=== PATIENT | female | born 1985 | race Caucasian/White ===

== ENCOUNTER → 2016-06-27 | Outpatient (CLI) | payer OTHER, SELFPAY | LOC: MW.CHOBGYN 14:22 | PROVIDERS: ATTEND Nurse Practitioner Women's Health | DX: N92.1 Excessive and frequent menstruation with irregular cycle (principal) | CPT/HCPCS: 36415; 81001; 84443; 84703 ==

== ENCOUNTER → 2016-07-01 | Outpatient (CLI) | payer OTHER, SELFPAY ==
--- NOTE | 2016-07-01 17:16 | US ---
EXAMINATION: Transvaginal pelvic ultrasound HISTORY: Excessive and frequent menstruation COMPARISON: 12/11/2015 TECHNIQUE: Grayscale, spectral and color Doppler images obtained transvaginally. FINDINGS: The uterus appears normal in size and contour, and echogenicity without a focal uterine ma ss. Endometrial stripe thickness measures 8 mm. No significant free pelvic fluid. Both the left and right ovaries appear normal in size, contour, and echogenicity demonstrating juan l color and spectral Doppler flow. Small follicles are noted bilaterally. No adnexal masses. IMPRESSION: Grossly unremarkable transvaginal pelvic ultrasound.
== END ==
LOC: MW.CHOBGYN 13:45
PROVIDERS: ATTEND Nurse Practitioner Women's Health
DX: N92.1 Excessive and frequent menstruation with irregular cycle (principal); R10.2 Pelvic and perineal pain
CPT/HCPCS: 76830; 76830-26; 81001

== ENCOUNTER 2016-08-13 11:41 | Day surgery (SDC) | payer OTHER, SELFPAY ==
[~2016-08-13 11:41] MED LIST: Acetaminophen/HYDROcodone 325-5 MG Tab PO PRN; BACITRACIN IRR SCH; Bupivacaine 0.25%/EPINEPHrine 1:200,000 10 ML SDV INJECT ONE; Bupivacaine 0.25%/EPINEPHrine 1:200,000 10 ML SDV ONE; Lactated Ringers 1,000 ML IV SCH; SODIUM CHLORIDE 0.9% IRR SCH; ceFAZolin 2 GM in Premix Bag 1 BAG IV ONE
[2016-08-13] MEDS ORDERED: EPINEPHrine 1:1000 1 MG/ML SDV ONE (11:49)
[2016-08-13] MEDS ORDERED: ceFAZolin 1 GM Vial ONE ×3 (11:49→14:54)
[2016-08-13] MEDS ORDERED: Gentamicin 40 MG/ML 2 ML Vial ONE (12:00)
--- NOTE | 2016-08-13 12:30 | PCM.PREANE ---
Preanesthetic Assessment - Anesthesia/Transfusion/Family Hx Anesthesia History: Prior Anesthesia Without Reaction Family History of Anesthesia Reaction: No Transfusion History: No Prior Transfusion(s) - Review of Systems General: No Symptoms Pulmonary: No Symptoms Cardiovascular: No Symptoms Gastrointestinal: No symptoms Neurological: No Symptoms Other: Reports: None - Physical Assessment NPO Status Date: 08/12/16 O2 Sat by Pulse Oximetry: 97 Respiratory Rate: 16 Vital Signs: Last Vital Signs Temp 37.3 C 08/13/16 12:11 Pulse 90 08/13/16 12:11 Resp 16 08/13/16 12:11 BP 112/74 08/13/16 12:11 Pulse Ox 97 08/13/16 12:11 Height: 1.68 m Weight: 61.235 kg ASA Class: 2 Mental Status: Alert & Oriented x3 Airway Class: Mallampati = 2 Dentition: Reports: Normal Dentition ROM/Head Extension: Full Lungs: Clear to auscultation, Normal respiratory effort Cardiovascular: Regular Rate, Regular Rhythm - Lab Values: Laboratory Last Values Urine HCG, Qual NEGATIVE (NEGATIVE) 08/13/16 11:41 - Allergies Allergies/Adverse Reactions: Allergies Allergy/AdvReac Type Severity Reaction Status Date / Time No Known Allergies Allergy Verified 12/11/15 17:05 - Anesthesia Plan Pre-Op Medication Ordered: None - Acknowledgements Anesthesia Type Planned: General Anesthesia Pt an Appropriate Candidate for the Planned Anesthesia: Yes Alternatives and Risks of Anesthesia Discussed w Pt/Guardian: Yes Pt/Guardian Understands and Agrees with Anesthesia Plan: Yes PreAnesthesia Questionnaire HEENT History: Reports: Other (See Below) Other HEENT History: wears glasses/contacts Gastrointestinal History: Reports: None Genitourinary History: Reports: None 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: Musculoskeletal History: Reports: Fibromyalgia Neurological History: Reports: Migraines Psychiatric History: Reports: Anxiety Endocrine/Metabolic History: Reports: None Hematologic History: Reports: None Dermatologic History: Reports: None - Infectious Disease History Infectious Disease History: Reports: Chicken Pox - Past Surgical History Head Surgeries/Procedures: Reports: None HEENT Surgical History: Reports: Oral Surgery Other HEENT Surgeries/Procedures: wisdom teeth extraction Female Surgical History: Reports: Breast Biopsy, Section, Tubal Ligation - SUBSTANCE USE Smoking Status *Q: Never Smoker Second Hand Smoke Exposure: No Days Per Week of Alcohol Use: 0 Recreational Drug Use History: No - HOME MEDS Home Medications: Home Meds Ibuprofen 2 tab PO ASDIRECTED PRN 08/11/16 [History] Norethindrone Acetate 10 mg PO BEDTIME 08/11/16 [History] - CURRENT (IN HOUSE) MEDS Current Meds: Current Medications Hydrocodone Bitart/Acetaminophen ([place] 325-5 Mg) 1 tab PO Q4H PRN PRN Reason: Pain Fentanyl (Sublimaze) 50 mcg IVPUSH Q5M PRN PRN Reason: Pain (severe 7-10) Stop: 08/14/16 09:08 Gentamicin Sulfate (Gentamicin) 80 mg .XX ONETIME ONE Stop: 08/13/16 12:01 Bacitracin 50,000 units/ (Sodium Chloride) 1 mls @ 1 mls/hr IRR ONETIME CHAMP Lactated Ringer's (Ringers, Lactated) 1,000 mls @ 125 mls/hr IV ASDIRECTED CHAMP Last Admin: 08/13/16 12:10 Dose: 125 mls/hr Discontinued Medications Bacitracin (Bacitracin) Confirm Administered Dose 50,000 units .ROUTE .STK-MED ONE Stop: 08/13/16 11:51 Bupivacaine HCl/Epinephrine Bitart (Marcaine 0.25%/Epinephrine 1:200,000) 40 ml INJECT ONETIME ONE Stop: 08/13/16 09:01 Bupivacaine HCl/Epinephrine Bitart (Marcaine 0.25%/Epinephrine 1:200,000) Confirm Administered Dose 20 ml .ROUTE .STK-MED ONE Stop: 08/13/16 06:49 Cefazolin Sodium (Ancef) 1 gm .XX ONETIME ONE Stop: 08/13/16 12:01 Cefazolin Sodium (Ancef) Confirm Administered Dose 1 gm .ROUTE .STK-MED ONE Stop: 08/13/16 11:50 Epinephrine HCl (Adrenalin 1:1000) Confirm Administered Dose 1 mg .ROUTE .STK- MED ONE Stop: 08/13/16 11:50 Cefazolin Sodium/Dextrose 2 gm (/ Premix) 50 mls @ 100 mls/hr IV ONETIME ONE Stop: 08/13/16 10:29
[2016-08-13] MEDS ORDERED: Propofol 200 MG/20 ML SDV ONE (12:39)
[2016-08-13] MEDS ORDERED: fentaNYL 250 MCG/5 ML SDV ONE ×2 (12:39→15:10)
[2016-08-13] MEDS ORDERED: Lidocaine 2% 5 ML SDV ONE (12:39)
[2016-08-13] MEDS ORDERED: Ondansetron 4 MG/2 ML SDV ONE (12:39)
[2016-08-13] MEDS ORDERED: Midazolam 1 MG/ML 2 ML SDV ONE (12:39)
[2016-08-13] MEDS ORDERED: Rocuronium 10 MG/ML 10 ML Syringe ONE (12:39)
[2016-08-13] MEDS ORDERED: Neostigmine Methylsulfate 1 MG/ML 5 ML Syringe ONE (12:39)
[2016-08-13] MEDS ORDERED: Sodium Chloride 0.9% 20 ML ONE (14:54)
[2016-08-13] MEDS ORDERED: Metoprolol Tartrate 5 MG/5 ML SDV ONE (15:01)
[2016-08-13] MEDS ORDERED: Phenylephrine/Normal Saline 100 MCG/ML 10 ML Syringe ONE (15:17)
[2016-08-13] MEDS: fentaNYL 100 MCG/2 ML SDV IVPUSH PRN ×2 (16:47→16:55)
--- NOTE | 2016-08-13 17:17 | PCM.POSTAN ---
POST ANESTHESIA ASSESSMENT - MENTAL STATUS Mental Status: alert (stable course without pain; only pressure sensation), oriented - RESPIRATORY Respiratory Status: respiratory rate WNL, airway patent, O2 saturation stable - CARDIOVASCULAR CV Status: pulse rate WNL, blood pressure stable - GASTROINTESTINAL GI Status: no symptoms - POST OP HYDRATION Hydration Status: adequate & stable
--- NOTE | 2016-08-13 17:19 | PCM48HPAN ---
Post Anesthesia Note - EVALUATION WITHIN 48HRS OF ANESTHETIC Vital Signs in Normal Range: Yes Patient Participated in Evaluation: Yes Respiratory Function Stable: Yes Airway Patent: Yes Cardiovascular Function Stable: Yes Hydration Status Stable: Yes Pain Control Satisfactory: Yes Nausea and Vomiting Control Satisfactory: Yes Mental Status Recovered: Yes - COMMENTS/OBSERVATIONS Free Text/Narrative:: Recovery with food intake and no complaint of pain. Ready for transfer accompanied to home.
[2016-08-13 18:05] VITALS: BP 116/67
--- NOTE | 2016-08-14 13:49 | PCM.OPNOTE ---
- General Post-Op/Procedure Note Date of Surgery/Procedure: 08/13/16 Operative Procedure(s): bilateral breast augmentation - silicone submuscular Pre Op Diagnosis: desire for augmentation mammoplasty Post-Op Diagnosis: Same Anesthesia Technique: General ET tube, Local Primary Surgeon: Carline Raymundo Geological Technical Officer: Jessica Issa Complications: None Condition: Good Free Text/Narrative:: Intake & Output 08/13/16 08/14/16 08/14/16 23:59 07:59 15:59 Intake Total 1800 Balance 1800 [id number] dictation
--- NOTE | 2016-08-14 15:20 | OR ---
SURGEON: RUTHANN MELTON MD DATE OF PROCEDURE: 08/13/2016 PREOPERATIVE DIAGNOSIS: Desire for bilateral breast augmentation. POSTOPERATIVE DIAGNOSIS: Desire for bilateral breast augmentation. PROCEDURE: Bilateral augmentation mammoplasty with submuscular silicone implant. ANESTHESIA: General, ET tube, and local. COMMERCIAL LINES ASSISTANT: AWAIS Eden INDICATIONS: Ms. Constantino is a 31-year-old female, here today for bilateral breast augmentation. Risks and benefits of the procedure were discussed with her and she was in agreement to proceed. Risks were including, but not limited to, bleeding, infection, damage to underlying or overlying structures, possible need for future interventions, and possible scarring. PROCEDURE IN DETAIL: After informed consent was obtained and placed on the chart, the patient was brought to the operating theater and laid in the supine position. After adequate general anesthetic, the area was prepped and draped in a normal fashion and time-out was completed to confirm side and site. Once adequately confirmed, attention was then paid to bilateral submuscular breast augmentation pocket development. Inframammary fold incisions were dissected 5 cm in length and a 15 blade was used to cut through the skin after local anesthetic. Dissection was then carried through the subcutaneous plane and to the lateral border of the pectoralis muscle. The dissection was then carried subpectorally and the inferior aspect of the pectoralis muscle was released. Once adequately released, meticulous hemostasis was obtained and 2-0 PDS sutures were used to secure three stitches at the inferior aspect of the inframammary fold and lateral aspect of the breast to prevent over dissection of the implant itself. Once these stitches have been placed, epinephrine laps were placed into the pocket and meticulous hemostasis was ensured. Dissection was undertaken on the other breast in a mirror fashion completed. Attention was then paid to removal of the epinephrine-soaked laps and meticulous hemostasis was again ensured. The area was then copiously irrigated with triple antibiotic solution. Once adequately irrigated, attention was then paid to placement of the [place] SRM 405 mL implants bilaterally. Unfortunately, the initial implant on the left side was punctured during closure and had to be removed and replaced. IMPLANTS: Left : SRM 405 SN [id number] Right: SRM 405 SN [id number] DISCARDED IMPLANT: SRM 405 SN [id number] After replacement, the skin was closed in a normal fashion with deep 3-0 Monocryl stitches and a running 4-0 subcuticular for the skin and Steri-Strips over top. She was then placed in a compression bra. The patient tolerated this well. All counts of needles were correct at the end of the case. FOLLOWUP INSTRUCTIONS: The patient will be discharged home with oral pain medication Flexeril and nausea medication if needed. She will call with any issues prior, otherwise we will recheck tomorrow in clinic sooner if any problems, questions, or concerns. HEGGTHE / LANIE /[id number] MTDD
== END 2016-08-13 18:10 | disposition home or self-care (01) ==
LOC: MW.SDS 11:41
PROVIDERS: ATTEND Plastic Surgery
PROC: 0H0V0KZ Alteration of Bilateral Breast with Nonautologous Tissue Substitute, Open Approach (ICD-10-PCS; principal; 2016-08-13)
DX: Z41.1 Encounter for cosmetic surgery (principal); F41.9 Anxiety disorder, unspecified; G43.709 Chronic migraine without aura, not intractable, without status migrainosus; G50.9 Disorder of trigeminal nerve, unspecified; M79.7 Fibromyalgia; Z98.51 Tubal ligation status; Z98.890 Other specified postprocedural states; Z79.899 Other long term (current) drug therapy
CPT/HCPCS: 19325; 81025; A9270; J0171; J0690; J2250; J2405; J3010; J7120; 00402; C1789; J2704

== ENCOUNTER 2017-04-22 08:49 | Day surgery (SDC) | payer OTHER, SELFPAY ==
[~2017-04-22 08:49] MED LIST changes: -BACITRACIN IRR SCH; -Bupivacaine 0.25%/EPINEPHrine 1:200,000 10 ML SDV ONE; +Bupivacaine 25%/EPINEPHrine/PF 30 ML ONE; +EPINEPHrine 1 MG/ML SDV ONE; +Gentamicin 40 MG/ML 2 ML Vial ONE; -SODIUM CHLORIDE 0.9% IRR SCH; +ceFAZolin 1 GM Vial ONE
--- NOTE | 2017-04-22 10:21 | PCM.PREANE ---
Preanesthetic Assessment - Anesthesia/Transfusion/Family Hx Anesthesia History: Prior Anesthesia Without Reaction Transfusion History: No Prior Transfusion(s) - Physical Assessment O2 Sat by Pulse Oximetry: 99 Respiratory Rate: 16 Vital Signs: Last Vital Signs Temp 36.9 C 04/22/17 09:14 Pulse 85 04/22/17 09:14 Resp 16 04/22/17 09:14 BP 108/67 04/22/17 09:14 Pulse Ox 99 04/22/17 09:14 Height: 1.68 m Weight: 61.689 kg - Lab Values: Laboratory Last Values Urine HCG, Qual NEGATIVE (NEGATIVE) 04/22/17 08:51 - Allergies Allergies/Adverse Reactions: Allergies Allergy/AdvReac Type Severity Reaction Status Date / Time No Known Allergies Allergy Verified 04/20/17 09:01 PreAnesthesia Questionnaire HEENT History: Reports: Other (See Below) Other HEENT History: wears glasses/contacts Cardiovascular History: Reports: None Respiratory History: Reports: None Gastrointestinal History: Reports: None Genitourinary History: Reports: None 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: Musculoskeletal History: Reports: Back Pain, Chronic, Fibromyalgia, Neck Pain, Chronic Neurological History: Reports: Migraines, Other (See Below) (trigeminal neuralgia with numbness first right side) Psychiatric History: Reports: Anxiety Endocrine/Metabolic History: Reports: None Hematologic History: Reports: None Immunologic History: Reports: None Oncologic (Cancer) History: Reports: None Dermatologic History: Reports: None - Infectious Disease History Infectious Disease History: Reports: Chicken Pox - Past Surgical History Head Surgeries/Procedures: Reports: None HEENT Surgical History: Reports: Oral Surgery Other HEENT Surgeries/Procedures: wisdom teeth extraction Female Surgical History: Reports: Breast Biopsy, Breast Implant, Section, Tubal Ligation Oncologic Surgical History: Reports: Biopsy of Breast - SUBSTANCE USE Smoking Status *Q: Never Smoker Second Hand Smoke Exposure: No Days Per Week of Alcohol Use: 0 Recreational Drug Use History: No - HOME MEDS Home Medications: Home Meds Norethindrone Acetate 10 mg PO BEDTIME 08/11/16 [History] Cyclobenzaprine [Flexeril] 1 - 2 tab PO BEDTIME PRN 04/20/17 [History] Ketamine HCl [Ketamine Hydrochloride] 1 applic TOP ASDIRECTED PRN 04/20/17 [ History] Ketamine HCl in 0.9 % NaCl [Ketamine 50 mg/5 ml-0.9% NaCl] 1 spray WILLIAM ASDIRECTED PRN 04/20/17 [History] Mecobal/Levomefolat Ca/B6 Phos [Foltanx Tablet] 1 tab PO BID 04/20/17 [History] Methocarbamol 1 tab PO TID 04/20/17 [History] - CURRENT (IN HOUSE) MEDS Current Meds: Current Medications Hydrocodone Bitart/Acetaminophen ([place] 325-5 Mg) 1 tab PO Q4H PRN PRN Reason: Pain Lactated Ringer's (Ringers, Lactated) 1,000 mls @ 500 mls/hr IV .BOLUS CHAMP Last Admin: 04/22/17 09:14 Dose: 500 mls/hr Discontinued Medications Bacitracin (Bacitracin) Confirm Administered Dose 50,000 units .ROUTE .STK-MED ONE Stop: 04/22/17 07:23 Bupivacaine HCl/Epinephrine Bitart (Marcaine 0.25%/Epinephrine 1:200,000) 10 ml INJECT ONETIME ONE Stop: 04/22/17 08:01 Cefazolin Sodium (Ancef) Confirm Administered Dose 1 gm .ROUTE .STK-MED ONE Stop: 04/22/17 07:22 Epinephrine HCl (Adrenalin) Confirm Administered Dose 1 mg .ROUTE .STK-MED ONE Stop: 04/22/17 07:22 Epinephrine HCl (Adrenalin) Confirm Administered Dose 1 mg .ROUTE .STK-MED ONE Stop: 04/22/17 07:28 Gentamicin Sulfate (Gentamicin) Confirm Administered Dose 80 mg .ROUTE .STK-MED ONE Stop: 04/22/17 07:22 Cefazolin Sodium/Dextrose 2 gm (/ Premix) 50 mls @ 100 mls/hr IV ONETIME ONE Stop: 04/22/17 08:29 Bupivacaine HCl/Epinephrine Bitart (Sensorc Mpf 0.25%-Epi 1:841807) Confirm Administered Dose 60 mls @ as directed .ROUTE .STK-MED ONE Stop: 04/22/17 07:20
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
[2017-04-22] MEDS ORDERED: Propofol 200 MG/20 ML SDV ONE ×2 (11:02→11:35)
[2017-04-22] MEDS ORDERED: ceFAZolin 1 GM Vial ONE (11:11)
[2017-04-22] MEDS ORDERED: Sodium Chloride 0.9% 20 ML ONE (11:11)
[2017-04-22] MEDS ORDERED: fentaNYL 100 MCG/2 ML SDV ONE ×2 (11:18→11:35)
[2017-04-22] MEDS ORDERED: Dexamethasone 4 MG/ML 5 ML MDV ONE (11:31)
[2017-04-22] MEDS ORDERED: Rocuronium 10 MG/ML 10 ML Syringe ONE (11:35)
[2017-04-22] MEDS ORDERED: Neostigmine Methylsulfate 1 MG/ML 5 ML Syringe ONE (11:35)
[2017-04-22] MEDS ORDERED: Ondansetron 4 MG/2 ML SDV ONE (11:35)
[2017-04-22] MEDS ORDERED: Glycopyrrolate 0.2 MG/ML SDV ONE (11:35)
[2017-04-22] MEDS ORDERED: Midazolam 1 MG/ML 2 ML SDV ONE (11:35)
[2017-04-22] MEDS ORDERED: Lidocaine 2% 5 ML SDV ONE (11:35)
[2017-04-22] MEDS ORDERED: HYDROmorphone 2 MG/ML SDV ONE (11:40)
[2017-04-22] MEDS ORDERED: fentaNYL 100 MCG/2 ML SDV IVPUSH PRN (11:53)
[2017-04-22] MEDS ORDERED: Scopolamine 1.5 MG Transdermal Patch ONE (12:42)
--- NOTE | 2017-04-22 13:54 | PCM.POSTAN ---
POST ANESTHESIA ASSESSMENT - MENTAL STATUS Mental Status: Alert, Oriented - RESPIRATORY Respiratory Status: Respiratory Rate WNL, Airway Patent, O2 Saturation Stable - CARDIOVASCULAR CV Status: Pulse Rate WNL, Blood Pressure Stable - GASTROINTESTINAL GI Status: No Symptoms - PAIN Pain Score: 0 - POST OP HYDRATION Hydration Status: Adequate & Stable - OBSERVATIONS Free Text/Narrative:: Pt denies any pain or nausea at this time
--- NOTE | 2017-04-22 13:56 | PCM48HPAN ---
Post Anesthesia Note - EVALUATION WITHIN 48HRS OF ANESTHETIC Vital Signs in Normal Range: Yes Patient Participated in Evaluation: Yes Respiratory Function Stable: Yes Airway Patent: Yes Cardiovascular Function Stable: Yes Hydration Status Stable: Yes Pain Control Satisfactory: Yes Nausea and Vomiting Control Satisfactory: Yes Mental Status Recovered: Yes Resp Rate: 9 - COMMENTS/OBSERVATIONS Free Text/Narrative:: Pt doing well post op with no pain and denying nausea at this time.
--- NOTE | 2017-04-22 14:23 | PCM.OPNOTE ---
- General Post-Op/Procedure Note Date of Surgery/Procedure: 04/22/17 Operative Procedure(s): bilateral breast implant exchange and bilateral flank liposuction Pre Op Diagnosis: cosmetic surgery Post-Op Diagnosis: Same Anesthesia Technique: General ET Tube, Local Primary Surgeon: Carline Raymundo Process Camera Operator: Jessica Issa Complications: None Condition: Good Free Text/Narrative:: Intake & Output 04/21/17 04/22/17 04/22/17 23:59 07:59 15:59 Intake Total 1850 Balance 2943 [id number]
[2017-04-22 14:47] VITALS: BP 122/63
--- NOTE | 2017-04-22 20:28 | OR ---
SURGEON: RUTHANN MELTON MD DATE OF PROCEDURE: 04/22/2017 PREOPERATIVE DIAGNOSES: Desire for bilateral breast implant exchange and bilateral flank liposuction. POSTOPERATIVE DIAGNOSES: Desire for bilateral breast implant exchange and bilateral flank liposuction. PROCEDURES: Bilateral breast implant exchange with minor capsule work and bilateral flank liposuction. UNDERGROUND MINING SECTION FOREMAN: AWAIS Eden. Reason for production administrative assistant was prepping, draping, retraction, and closure assistance. INDICATIONS: Ms. Constantino is seen today in evaluation for bilateral breast implant exchange. She would like to go larger. Risks and benefits of this were discussed with her in detail as documented in the clinic notes and she was in agreement to proceed. In addition, she would like bilateral flank liposuction in addition to this for the love handles that despite her thin build continued to bother her. Risks and benefits were discussed including, but not limited to, bleeding, infection, damage to underlying or overlying structures, possible need for future interventions, possible scarring, and she was in agreement to proceed. PROCEDURE IN DETAIL: After informed consent was obtained and placed on the chart, the patient was brought to the operating theater and laid in a supine position. After adequate general anesthesia was obtained, the area was prepped and draped and a time-out was completed to confirm side and site. Attention was first paid to exchange of breast implants. The previous incisions were used for direct access again and dissection was carried down to the implant itself. The previous implants were removed and once removed, small amount of capsule work were done using a two PDS suture at the lower lateral border of the right and the lateral border on the left. Once this was secured in place, the area was copiously irrigated with triple antibiotic solution. Once adequately irrigated, attention was then paid to placement of the bilateral 650 mL Style 45 Natrelle silicone-filled breast implants, reference number is [id number]; on the left, serial #[id number]; on the right, serial #[id number]. Once these were placed appropriately, the skin was closed using deep 3-0 Monocryl stitches, deep 3-0 for the dermis, and a running 4-0 subcuticular. She tolerated this well, and all counts and needles were correct at the end of this portion of the case. Attention was then paid to the liposuction of the flanks. Small stab incisions were made, hidden in her tattoos. 300 mL of tumescent with 1% lidocaine with epinephrine was injected into the area. Once adequately infiltrated, was allowed to sit. Attention was then paid to liposuction with the power-assisted liposuction machine in a medial cannula. Liposuction was easily undertaken for 150 mL removal on each side. The patient tolerated this well, and then all counts and needles were correct at the end of the case. The stab incisions were dressed with Steri-Strips, Tegaderms, and an ABD for any drainage. The patient was placed in a compression garment. The patient tolerated the procedure well. All counts and needles were correct at the end of the case. She will follow up with us tomorrow in clinic sooner if any problems, questions, or concerns. She was given a prescription for pain control. AMAYA / LANIE /[id number]
== END 2017-04-22 14:30 | disposition home or self-care (01) ==
LOC: MW.SDS 08:49
PROVIDERS: ATTEND Plastic Surgery
DX: Z41.1 Encounter for cosmetic surgery (principal); F41.9 Anxiety disorder, unspecified; G89.4 Chronic pain syndrome; M79.7 Fibromyalgia; N92.1 Excessive and frequent menstruation with irregular cycle; G50.9 Disorder of trigeminal nerve, unspecified; G43.909 Migraine, unspecified, not intractable, without status migrainosus; Z79.899 Other long term (current) drug therapy; Z98.51 Tubal ligation status
CPT/HCPCS: 15877; 19380; 81025; A9270; J0171; J0690; J1100; J1170; J1580; J2250; J2405; J3010; J7120; 00402; C1789; J2704

== ENCOUNTER 2019-05-30 19:36 | Inpatient (IN) | payer BC ==
[2019-05-30] MEDS ORDERED: Morphine 10 MG/ML Syringe IVPUSH ONE (19:54)
[2019-05-30] MEDS ORDERED: Sodium Chloride 0.9% 1,000 ML IV ONE ×2 (19:54→19:55)
[2019-05-30] MEDS ORDERED: Ondansetron 4 MG/2 ML SDV IVPUSH ONE (19:54)
--- NOTE | 2019-05-30 20:00 | EDM.PDOC ---
ED HPI GENERAL MEDICAL PROBLEM - General Chief Complaint: Abdominal Pain Stated Complaint: FEVER, STOMACH PAIN Time Seen by Provider: 05/30/19 19:58 Source of Information: Reports: Patient History Limitations: Reports: No Limitations - History of Present Illness INITIAL COMMENTS - FREE TEXT/NARRATIVE: Patient 31-year-old female with a past medical history of ovarian cysts and tubal ligation presenting with a chief complaint of lower abdominal pain. Patient states the pain started about 24 hours ago. Patient states the pain is periumbilical. Pain does not radiate. Pain is worsened with movements and riding over bumps in the car. Patient reports associated fevers and vomiting. Patient denies any dysuria, hematuria, vaginal bleeding, vaginal discharge. Pmhx: Per HPI Pshx: Breast surgery, tubal ligation Family Hx: noncontributory Smoking history? no Etoh use? none Drug use? none In addition to that documented in the HPI above, the additional ROS was obtained : Constitutional: Per HPI Eyes: Denies vision changes ENMT: Denies sore throat CV: Denies chest pain Resp: Denies SOB GI: Per HPI : Denies painful urination MSK: Denies recent trauma Skin: Denies new rashes Neuro: Denies new numbness or tingling or weakness Endocrine: Denies unexpected weight loss Heme: Denies bleeding disorders I have reviewed the triage vital signs Const: Well nourished, well developed, appears stated age Eyes: PERRL, no conjunctival injection HENT: NCAT, Neck supple without meningismus CV: RRR, Warm, well-perfused extremities RESP: CTAB, Unlabored respiratory effort GI: Tenderness to palpation of the right lower quadrant. No guarding or rebound. Negative Rovsing sign, non-distended, no masses MSK: No gross deformities appreciated Skin: Warm, dry. 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 Sensation and motor function of extremities grossly intact. Psych: Appropriate mood and affect Assessment and plan: Patient is a 4-year-old female presenting with chief complaint of lower abdominal pain. Patient initially had a tachycardia in the 140s. Patient had elevated white blood cell count 18,000. Patient's lactate was within normal limits. Patient's heart rate responded to IV fluid administration. Patient improved with administration of pain medication. CT scan was performed to evaluate for evidence of appendicitis versus diverticular disease versus possible pyelonephritis/complicated urinary tract infection. CT scan demonstrated perforated diverticulitis without evidence of abscess formation. Patient initiated on Zosyn for broad-spectrum antibiotics. General surgery was consulted for evaluation and possible operative management. General surgery evaluated the patient and agreed for an mission to provide antibiotics pain control and repeat evaluation. Dr Prince evaluated and agreed for admission. Lower Abdomen Pain Score (Numeric/FACES): 8 - Related Data Allergies Allergy/AdvReac Type Severity Reaction Status Date / Time No Known Allergies Allergy Verified 05/30/19 19:47 Home Meds: Home Meds . 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: Musculoskeletal History: Reports: Back Pain, Chronic, Fibromyalgia, Neck Pain, Chronic Neurological History: Reports: Migraines, Neuropathy, Peripheral Psychiatric History: Reports: Anxiety Endocrine/Metabolic History: Reports: None Hematologic History: Reports: None Immunologic History: Reports: None Oncologic (Cancer) History: Reports: None Dermatologic History: Reports: None - Infectious Disease History Infectious Disease History: Reports: Chicken Pox - Past Surgical History Head Surgeries/Procedures: Reports: None HEENT Surgical History: Reports: Oral Surgery Other HEENT Surgeries/Procedures: wisdom teeth extraction Female Surgical History: Reports: Breast Biopsy, Breast Implant, Section, Tubal Ligation Oncologic Surgical History: Reports: Biopsy of Breast Social & Family History - Family History Family Medical History: Noncontributory - Tobacco Use Smoking Status *Q: Never Smoker Second Hand Smoke Exposure: No - Caffeine Use Caffeine Use: Reports: None - Recreational Drug Use Recreational Drug Use: No ED ROS GENERAL - Review of Systems Review Of Systems: See Below ED EXAM, GI/ABD - Physical Exam Exam: See Below Course - Vital Signs Last Recorded V/S: Last Vital Signs Temp 36.9 C 05/30/19 23:00 Pulse 106 H 05/30/19 22:34 Resp 17 05/31/19 00:00 BP 101/59 L 05/31/19 00:00 Pulse Ox 96 05/31/19 00:00 - Orders/Labs/Meds Orders: Active Orders 24 hr Category Date Time Status CULTURE BLOOD [BC] Stat Lab 05/30/19 19:45 Received CULTURE BLOOD [BC] Stat Lab 05/30/19 20:04 Received Blood Culture x2 Reflex Set [OM.PC] Stat Oth 05/30/19 19:54 Ordered Medication Orders Hydromorphone HCl (Dilaudid) 0.5 mg IVPUSH Q1H PRN PRN Reason: Pain Last Admin: 05/31/19 00:12 Dose: 0.5 mg Lactated Ringer's (Ringers, Lactated) 1,000 mls @ 150 mls/hr IV ASDIRECTED CHAMP Last Admin: 05/30/19 22:02 Dose: 150 mls/hr Piperacillin Sod/Tazobactam (Sod 3.375 gm/ Sodium Chloride) 50 mls @ 100 mls/ hr IV Q6H CHAMP Ketorolac Tromethamine (Toradol) 15 mg IVPUSH Q6H PRN PRN Reason: Pain Stop: 05/31/19 22:01 Ondansetron HCl (Zofran) 4 mg IVPUSH Q6H PRN PRN Reason: Nausea/Vomiting Promethazine HCl (Phenergan) 25 mg IM Q6H PRN PRN Reason: Nausea Sodium Chloride (Saline Flush) 10 ml FLUSH ASDIRECTED PRN PRN Reason: Keep Vein Open Sodium Chloride (Saline Flush) 2.5 ml FLUSH ASDIRECTED PRN PRN Reason: Keep Vein Open Sodium Chloride (Normal Saline) 10 ml IV ASDIRECTED PRN PRN Reason: IV Use Labs: Laboratory Tests 05/30/19 05/30/19 05/30/19 Range/Units 19:45 19:45 19:45 WBC 18.08 H (4.0-11.0) K/uL RBC 4.67 (4.30-5.90) M/uL Hgb 14.1 (12.0-16.0) g/dL Hct 41.8 (36.0-46.0) % MCV 89.5 (80.0-98.0) fL MCH 30.2 (27.0-32.0) pg MCHC 33.7 (31.0-37.0) g/dL RDW Std Deviation 40.3 (28.0-62.0) fl RDW Coeff of Jamal 12 (11.0-15.0) % Plt Count 296 (150-400) K/uL MPV 8.90 (7.40-12.00) fL Neut % (Auto) 82.1 H (48.0-80.0) % Lymph % (Auto) 8.7 L (16.0-40.0) % [place] % (Auto) 9.0 (0.0-15.0) % Eos % (Auto) 0.1 (0.0-7.0) % Baso % (Auto) 0.1 (0.0-1.5) % Neut # (Auto) 14.9 H (1.4-5.7) K/uL Lymph # (Auto) 1.6 (0.6-2.4) K/uL [place] # (Auto) 1.6 H (0.0-0.8) K/uL Eos # (Auto) 0.0 (0.0-0.7) K/uL Baso # (Auto) 0.0 (0.0-0.1) K/uL Nucleated RBC % 0.0 /100WBC Nucleated RBCs # 0 K/uL Lactate 1.3 (0.20-2.00) mmol/L Sodium 140 (136-145) mmol/L Potassium 3.4 L (3.5-5.1) mmol/L Chloride 104 (98-107) mmol/L Carbon Dioxide 23.0 (21.0-32.0) mmol/L BUN 14 (7.0-18.0) mg/dL Creatinine 0.9 (0.6-1.0) mg/dL Est Cr Clr Drug Dosing 84.01 mL/min Estimated GFR (MDRD) > 60.0 ml/min Glucose 124 H (74-106) mg/dL Calcium 8.7 (8.5-10.1) mg/dL Total Bilirubin 0.7 (0.2-1.0) mg/dL AST 28 (15-37) IU/L ALT 37 (14-63) IU/L Alkaline Phosphatase 98 (46-116) U/L Total Protein 8.0 (6.4-8.2) g/dL Albumin 4.1 (3.4-5.0) g/dL Globulin 3.9 (2.6-4.0) g/dL Albumin/Globulin Ratio 1.1 (0.9-1.6) Lipase 125 (73-393) U/L HCG, Qual (NEG) 05/30/19 Range/Units 19:45 WBC (4.0-11.0) K/uL RBC (4.30-5.90) M/uL Hgb (12.0-16.0) g/dL Hct (36.0-46.0) % MCV (80.0-98.0) fL MCH (27.0-32.0) pg MCHC (31.0-37.0) g/dL RDW Std Deviation (28.0-62.0) fl RDW Coeff of Jamal (11.0-15.0) % Plt Count (150-400) K/uL MPV (7.40-12.00) fL Neut % (Auto) (48.0-80.0) % Lymph % (Auto) (16.0-40.0) % [place] % (Auto) (0.0-15.0) % Eos % (Auto) (0.0-7.0) % Baso % (Auto) (0.0-1.5) % Neut # (Auto) (1.4-5.7) K/uL Lymph # (Auto) (0.6-2.4) K/uL [place] # (Auto) (0.0-0.8) K/uL Eos # (Auto) (0.0-0.7) K/uL Baso # (Auto) (0.0-0.1) K/uL Nucleated RBC % /100WBC Nucleated RBCs # K/uL Lactate (0.20-2.00) mmol/L Sodium (136-145) mmol/L Potassium (3.5-5.1) mmol/L Chloride (98-107) mmol/L Carbon Dioxide (21.0-32.0) mmol/L BUN (7.0-18.0) mg/dL Creatinine (0.6-1.0) mg/dL Est Cr Clr Drug Dosing mL/min Estimated GFR (MDRD) ml/min Glucose (74-106) mg/dL Calcium (8.5-10.1) mg/dL Total Bilirubin (0.2-1.0) mg/dL AST (15-37) IU/L ALT (14-63) IU/L Alkaline Phosphatase (46-116) U/L Total Protein (6.4-8.2) g/dL Albumin (3.4-5.0) g/dL Globulin (2.6-4.0) g/dL Albumin/Globulin Ratio (0.9-1.6) Lipase (73-393) U/L HCG, Qual NEGATIVE (NEG) Meds: Medications Generic Name Dose Route Start Last Admin Trade Name Joey PRN Reason Stop Dose Admin Hydromorphone HCl 0.5 mg 05/30/19 22:27 05/31/19 00:12 Dilaudid IVPUSH 0.5 mg Q1H PRN Administration Pain Lactated Ringer's 1,000 mls @ 150 mls/hr 05/30/19 22:00 05/30/19 22:02 Ringers, Lactated IV 150 mls/hr ASDIRECTED CHAMP Administration Piperacillin Sod/Tazobactam 50 mls @ 100 mls/hr 05/31/19 03:00 Sod 3.375 gm/ Sodium Chloride IV Q6H CHAMP Ketorolac Tromethamine 15 mg 05/30/19 22:23 Toradol IVPUSH 05/31/19 22:01 Q6H PRN Pain Ondansetron HCl 4 mg 05/30/19 22:28 Zofran IVPUSH Q6H PRN Nausea/Vomiting Promethazine HCl 25 mg 05/30/19 22:28 Phenergan IM Q6H PRN Nausea Sodium Chloride 10 ml 05/30/19 22:23 Saline Flush FLUSH ASDIRECTED PRN Keep Vein Open Sodium Chloride 2.5 ml 05/30/19 22:23 Saline Flush FLUSH ASDIRECTED PRN Keep Vein Open Sodium Chloride 10 ml 05/30/19 22:23 Normal Saline IV ASDIRECTED PRN IV Use Discontinued Medications Generic Name Dose Route Start Last Admin Trade Name Fregi PRN Reason Stop Dose Admin Hydromorphone HCl 0.5 mg 05/30/19 22:19 05/30/19 22:28 Dilaudid IVPUSH 05/30/19 22:20 0.5 mg ONETIME ONE Administration Sodium Chloride 1,000 mls @ 1,000 mls/hr 05/30/19 19:54 05/30/19 20:03 Normal Saline IV 05/30/19 20:53 1,000 mls/hr .Bolus ONE Administration Sodium Chloride 1,000 mls @ 1,000 mls/hr 05/30/19 19:55 05/30/19 20:04 Normal Saline IV 05/30/19 20:54 1,000 mls/hr .Bolus ONE Administration Piperacillin Sod/Tazobactam 50 mls @ 100 mls/hr 05/30/19 21:16 05/30/19 21:31 Sod 3.375 gm/ Sodium Chloride IV 05/30/19 21:45 100 mls/hr ONETIME ONE Administration Pantoprazole Sodium 40 mg/ 10 mls @ 300 mls/hr 05/30/19 22:27 05/30/19 23:23 Sodium Chloride IV 05/30/19 22:28 300 mls/hr NOW ONE Administration Iopamidol 100 ml 05/30/19 20:39 05/30/19 20:46 [id number] (76%) IVPUSH 05/30/19 20:40 100 ml ONETIME STA Administration Ketorolac Tromethamine 30 mg 05/30/19 22:19 05/30/19 22:27 Toradol IVPUSH 05/30/19 22:20 30 mg ONETIME ONE Administration Morphine Sulfate 6 mg 05/30/19 19:54 05/30/19 20:03 Morphine IVPUSH 05/30/19 19:55 6 mg ONETIME ONE Administration Ondansetron HCl 4 mg 05/30/19 19:54 05/30/19 20:03 Zofran IVPUSH 05/30/19 19:55 4 mg ONETIME ONE Administration Departure - Departure Time of Disposition: 20:50 Disposition: Admitted As Inpatient 67 Clinical Impression: Diverticulitis of colon with perforation - Discharge Information Sepsis Event Note - Evaluation Sepsis Screening Result: No Definite Risk - Focused Exam Vital Signs: Vital Signs Temp Temp Pulse Resp BP Pulse Ox 05/30/19 21:33 38.1 C 106 H 16 111/68 99 05/30/19 20:59 37.7 C 109 H 18 122/76 100 05/30/19 20:12 38.1 C 113 H 20 112/71 100 05/30/19 19:43 38.5 C H 140 H 20 133/71 98 Date Exam was Performed: 05/31/19 Time Exam was Performed: 00:48 - My Orders Last 24 Hours: My Active Orders 05/30/19 19:45 CULTURE BLOOD [BC] Stat 05/30/19 19:54 Blood Culture x2 Reflex Set [OM.PC] Stat 05/30/19 20:04 CULTURE BLOOD [BC] Stat - Assessment/Plan Last 24 Hours: My Active Orders 05/30/19 19:45 CULTURE BLOOD [BC] Stat 05/30/19 19:54 Blood Culture x2 Reflex Set [OM.PC] Stat 05/30/19 20:04 CULTURE BLOOD [BC] Stat
[2019-05-30 20:27] LABS: BLOOD UREA NITROGEN,BUN 14 mg/dL (7.0-18.0); CHLORIDE,CL 104 mmol/L (98-107); GLUCOSE RANDOM 124 mg/dL (74-106); LIPASE 125 U/L (73-393); POTASSIUM,K 3.4 mmol/L (3.5-5.1); SODIUM,NA 140 mmol/L (136-145)
[2019-05-30] MEDS ORDERED: Iopamidol 755 Mg/ML 100 ML Bottle IVPUSH STA (20:39)
[2019-05-30] MEDS ORDERED: Piperacillin/Tazobactam 3.375 GM in Sodium Chloride 0.9% 50 ML IV ONE (21:16)
--- NOTE | 2019-05-30 21:19 | CT ---
Indication: Right lower quadrant pain Technique: Nonenhanced axial CT imaging through the abdomen and pelvis. Sagittal and coronal reconstructions are provided. Comparison: CT abdomen pelvis with contrast 12/11/2015 Findings: There is diverticulosis of the distal descending colon and sigmoid colon. Focal wall thickening with adjacent inflammatory stranding are seen at the junction of the descending and sigmoid colon, consistent with acute diverticulitis. There are a few nearby foci of extraluminal air. Small amount of free intraperitoneal can also be seen anterior to the liver. Findings are consistent with acute diverticulitis and perforation. There is no organizing abdominal or pelvic fluid collection. Remainder of the colon is noninflamed. The stomach and small bowel are unremarkable. The appendix is not visualized. There is unremarkable noncontrast appearance of the liver, gallbladder, spleen, pancreas, and adrenal glands. A few small nonobstructing stones are seen in the left kidney. The right kidney is unremarkable. There is no abdominal lymphadenopathy. There is normal caliber of the abdominal aorta. The osseous structures are unremarkable. The included lung bases are clear. Impression: Acute diverticulitis at the junction of the descending and sigmoid colon. A few small foci of nearby extraluminal air and free intraperitoneal air over the anterior margin of the liver are consistent with perforation. No evidence of abdominal or pelvic abscess. Findings were called to Dr Bonds at 9:13 pm Please note that all CT scans at this facility use dose modulation, iterative reconstruction, and/or weight-based dosing when appropriate to reduce radiation dose to as low as reasonably achievable. Dictated by Tyree Benoit MD @ May 30 2019 9:01PM Signed by Dr. Tyree Benoit @ May 30 2019 9:17PM
[2019-05-30] MEDS: Lactated Ringers 1,000 ML IV SCH (22:02)
--- NOTE | 2019-05-30 22:08 | PCM.HP.2 ---
H&P History of Present Illness - General Date of Service: 05/30/19 Admit Problem/Dx: Admission Diagnosis/Problem Admission Diagnosis/Problem Diverticulitis Source of Information: Patient History Limitations: Reports: No Limitations - History of Present Illness Initial Comments - Free Text/Narative: Patient is a 33 year old female who presents with 24 hours of increasing abdominal pain. It came on suddenly last evening and continued to get worse throughout the night and today. She developed malaise, fever, chills, diaphoresis, nausea and vomiting. She did have a BM this morning that was normal. She has never had these symptoms before and denies any family history of colon cancer. She came to the ER. She was tachycardic on arrival at 140. Her temperature was 101F. She had 2 sets of blood cultures drawn and was given 2L of IVF. She responded well to the fluid bolus and her HR came down to 100-110. She had a WBC of 18K with a left shift. A CT abdomen/pelvis was performed that showed thickening of the colon at the sigmoid/descending colon junction with a few foci of free air adjacent to this as well as a few foci of air anterior to the liver. With morphine, her pain is under much better control. Lower Abdomen Pain Score (Numeric/FACES): 8 - Related Data Allergies/Adverse Reactions: Allergies Allergy/AdvReac Type Severity Reaction Status Date / Time No Known Allergies Allergy Verified 05/30/19 19:47 Home Medications: Home Meds . 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: Musculoskeletal History: Reports: Back Pain, Chronic, Fibromyalgia, Neck Pain, Chronic Neurological History: Reports: Migraines, Neuropathy, Peripheral Psychiatric History: Reports: Anxiety Endocrine/Metabolic History: Reports: None Hematologic History: Reports: None Immunologic History: Reports: None Oncologic (Cancer) History: Reports: None Dermatologic History: Reports: None - Infectious Disease History Infectious Disease History: Reports: Chicken Pox - Past Surgical History Head Surgeries/Procedures: Reports: None HEENT Surgical History: Reports: Oral Surgery Other HEENT Surgeries/Procedures: wisdom teeth extraction Female Surgical History: Reports: Breast Biopsy, Breast Implant, Section, Tubal Ligation Oncologic Surgical History: Reports: Biopsy of Breast Social & Family History - Family History Family Medical History: Noncontributory - Tobacco Use Smoking Status *Q: Never Smoker Second Hand Smoke Exposure: No - Caffeine Use Caffeine Use: Reports: None - Recreational Drug Use Recreational Drug Use: No H&P Review of Systems - Review of Systems: Review Of Systems: Comprehensive ROS is negative, except as noted in HPI. Exam - Exam Exam: See Below - Vital Signs Vital Signs: Last Vital Signs Temp 38.1 C 05/30/19 21:33 Pulse 106 H 05/30/19 21:33 Resp 16 05/30/19 21:33 BP 111/68 05/30/19 21:33 Pulse Ox 99 05/30/19 21:33 Weight: 61.235 kg - Exam General: Alert, Oriented, Mild Distress HEENT: Conjunctiva Clear, Mucosa Moist & [place], Posterior Pharynx Clear Neck: Supple, Trachea Midline Lungs: Clear to Auscultation, Normal Respiratory Effort Cardiovascular: Regular Rhythm, Tachycardia (mild) GI/Abdominal Exam: Soft, No Distention, No Mass, Guarding (left lateral abdomen ), Tender (left lateral abdomen ). No: Rigid, Rebound - Patient Data Lab Results Last 24 hrs: Laboratory Results - last 24 hr 05/30/19 05/30/19 05/30/19 Range/Units 19:45 19:45 19:45 WBC 18.08 H (4.0-11.0) K/uL RBC 4.67 (4.30-5.90) M/uL Hgb 14.1 (12.0-16.0) g/dL Hct 41.8 (36.0-46.0) % MCV 89.5 (80.0-98.0) fL MCH 30.2 (27.0-32.0) pg MCHC 33.7 (31.0-37.0) g/dL RDW Std Deviation 40.3 (28.0-62.0) fl RDW Coeff of Jamal 12 (11.0-15.0) % Plt Count 296 (150-400) K/uL MPV 8.90 (7.40-12.00) fL Neut % (Auto) 82.1 H (48.0-80.0) % Lymph % (Auto) 8.7 L (16.0-40.0) % [place] % (Auto) 9.0 (0.0-15.0) % Eos % (Auto) 0.1 (0.0-7.0) % Baso % (Auto) 0.1 (0.0-1.5) % Neut # (Auto) 14.9 H (1.4-5.7) K/uL Lymph # (Auto) 1.6 (0.6-2.4) K/uL [place] # (Auto) 1.6 H (0.0-0.8) K/uL Eos # (Auto) 0.0 (0.0-0.7) K/uL Baso # (Auto) 0.0 (0.0-0.1) K/uL Nucleated RBC % 0.0 /100WBC Nucleated RBCs # 0 K/uL Lactate 1.3 (0.20-2.00) mmol/L Sodium 140 (136-145) mmol/L Potassium 3.4 L (3.5-5.1) mmol/L Chloride 104 (98-107) mmol/L Carbon Dioxide 23.0 (21.0-32.0) mmol/L BUN 14 (7.0-18.0) mg/dL Creatinine 0.9 (0.6-1.0) mg/dL Est Cr Clr Drug Dosing 84.01 mL/min Estimated GFR (MDRD) > 60.0 ml/min Glucose 124 H (74-106) mg/dL Calcium 8.7 (8.5-10.1) mg/dL Total Bilirubin 0.7 (0.2-1.0) mg/dL AST 28 (15-37) IU/L ALT 37 (14-63) IU/L Alkaline Phosphatase 98 (46-116) U/L Total Protein 8.0 (6.4-8.2) g/dL Albumin 4.1 (3.4-5.0) g/dL Globulin 3.9 (2.6-4.0) g/dL Albumin/Globulin Ratio 1.1 (0.9-1.6) Lipase 125 (73-393) U/L HCG, Qual (NEG) 05/30/19 Range/Units 19:45 WBC (4.0-11.0) K/uL RBC (4.30-5.90) M/uL Hgb (12.0-16.0) g/dL Hct (36.0-46.0) % MCV (80.0-98.0) fL MCH (27.0-32.0) pg MCHC (31.0-37.0) g/dL RDW Std Deviation (28.0-62.0) fl RDW Coeff of Jamal (11.0-15.0) % Plt Count (150-400) K/uL MPV (7.40-12.00) fL Neut % (Auto) (48.0-80.0) % Lymph % (Auto) (16.0-40.0) % [place] % (Auto) (0.0-15.0) % Eos % (Auto) (0.0-7.0) % Baso % (Auto) (0.0-1.5) % Neut # (Auto) (1.4-5.7) K/uL Lymph # (Auto) (0.6-2.4) K/uL [place] # (Auto) (0.0-0.8) K/uL Eos # (Auto) (0.0-0.7) K/uL Baso # (Auto) (0.0-0.1) K/uL Nucleated RBC % /100WBC Nucleated RBCs # K/uL Lactate (0.20-2.00) mmol/L Sodium (136-145) mmol/L Potassium (3.5-5.1) mmol/L Chloride (98-107) mmol/L Carbon Dioxide (21.0-32.0) mmol/L BUN (7.0-18.0) mg/dL Creatinine (0.6-1.0) mg/dL Est Cr Clr Drug Dosing mL/min Estimated GFR (MDRD) ml/min Glucose (74-106) mg/dL Calcium (8.5-10.1) mg/dL Total Bilirubin (0.2-1.0) mg/dL AST (15-37) IU/L ALT (14-63) IU/L Alkaline Phosphatase (46-116) U/L Total Protein (6.4-8.2) g/dL Albumin (3.4-5.0) g/dL Globulin (2.6-4.0) g/dL Albumin/Globulin Ratio (0.9-1.6) Lipase (73-393) U/L HCG, Qual NEGATIVE (NEG) Result Diagrams: 05/30/19 19:45 05/30/19 19:45 Sepsis Event Note - Evaluation Sepsis Screening Result: No Definite Risk - Focused Exam Vital Signs: Vital Signs Temp Temp Pulse Resp BP Pulse Ox 05/30/19 21:33 38.1 C 106 H 16 111/68 99 05/30/19 20:59 37.7 C 109 H 18 122/76 100 05/30/19 20:12 38.1 C 113 H 20 112/71 100 05/30/19 19:43 38.5 C H 140 H 20 133/71 98 Date Exam was Performed: 05/30/19 Time Exam was Performed: 22:02 - Problem List (1) Dehydration SNOMED Code(s): 61538008 ICD Code: E86.0 - DEHYDRATION Status: Acute Current Visit: Yes (2) Sigmoid diverticulitis SNOMED Code(s): 099266615 ICD Code: K57.32 - DVTRCLI OF LG INT W/O PERFORATION OR ABSCESS W/O BLEEDING Status: Acute Current Visit: Yes Problem List Initiated/Reviewed/Updated: Yes Orders Last 24hrs: Active Orders 24 hr Category Date Time Status Admission Status [Patient Status] [ADT] Stat ADT 05/30/19 21:44 Active CULTURE BLOOD [BC] Stat Lab 05/30/19 19:45 Received CULTURE BLOOD [BC] Stat Lab 05/30/19 20:04 Received Lactated Ringers [Ringers, Lactated] 1,000 ml Med 05/30/19 22:00 Active IV ASDIRECTED Blood Culture x2 Reflex Set [OM.PC] Stat Oth 05/30/19 19:54 Ordered Medication Orders Lactated Ringer's (Ringers, Lactated) 1,000 mls @ 150 mls/hr IV ASDIRECTED CHAMP Assessment/Plan Comment:: The patient has sigmoid diverticulitis with a small perforation. We discussed the pathophysiology of diverticulosis and diverticulitis. I will treat her conservatively with continued IVF resucitation, IV zosyn, and strict NPO status at this time given isolated abdominal tenderness and excellent response to fluids. I will admit her for close observation. I explained to the patient that should she start to have clinical decline and/or worsening of her abdominal pain , we may need to proceed with surgery. Pain: IV Dilaudid 0.5mg q 1hr prn pain. IV toradol 30 mg q 6hr prn pain as well. CV: Tachycardia improving. Continue IVF resuscitation with LR @150ml/hr. Remote telemetry to monitor BP and HR closely. Pulm: Supplemental O2 as needed to keep O2 sats >90%. IS use q 1hr. GI: Strict NPO. Renal: Monitor UOP q 4hr. BUN/Cr stable. Repeat labs and electrolytes in am. ID: IV zosyn 3.375 mg q 6hr. Heme: Stable. Px: IV PPI for now. Will switch to po as soon as tolerated. SCDs. No chemical DVT yet.
[2019-05-30] MEDS ORDERED: Ketorolac 30 MG/ML SDV IVPUSH ONE (22:19)
[2019-05-30] MEDS ORDERED: HYDROmorphone 1 MG/ML Syringe IVPUSH ONE (22:19)
[2019-05-30] MEDS ORDERED: Sodium Chloride 0.9% 10 ML SDV IV PRN (22:23)
[2019-05-30] MEDS ORDERED: Sodium Chloride 0.9% 2.5 ML Syringe FLUSH PRN (22:23)
[2019-05-30] MEDS ORDERED: Sodium Chloride 0.9% 10 ML Syringe FLUSH PRN (22:23)
[2019-05-30] MEDS ORDERED: Pantoprazole 40 MG in Sodium Chloride 0.9% 10 ML IV ONE (22:27)
[2019-05-30] MEDS ORDERED: Promethazine 25 MG/ML SDV IM PRN (22:28)
[2019-05-31] MEDS: HYDROmorphone 1 MG/ML Syringe IVPUSH PRN ×6 (00:12→19:42)
[2019-05-31] MEDS: Piperacillin/Tazobactam 3.375 GM in Sodium Chloride 0.9% 50 ML IV SCH ×4 (03:10→20:10)
[2019-05-31] MEDS: Ketorolac 15 MG/ML SDV IVPUSH PRN ×2 (04:09→21:01)
[2019-05-31] MEDS: Ondansetron 4 MG/2 ML SDV IVPUSH PRN ×2 (05:41→11:26)
[2019-05-31] MEDS: Lactated Ringers 1,000 ML IV SCH ×2 (05:42→14:50)
[2019-05-31 06:02] LABS: BLOOD UREA NITROGEN,BUN 7 mg/dL (7.0-18.0); CARBON DIOXIDE,CO2 26.8 mmol/L (21.0-32.0); CHLORIDE,CL 107 mmol/L (98-107); GLUCOSE RANDOM 101 mg/dL (74-106); POTASSIUM,K 3.6 mmol/L (3.5-5.1); SODIUM,NA 141 mmol/L (136-145)
--- NOTE | 2019-05-31 08:39 | PCM.SURGPN ---
- General Info Date of Service: 05/31/19 Admission Diagnosis/Problem: Diverticulitis of colon with perforation Functional Status: Reports: Pain Controlled, Other (HR improved overnight. BP stable. Making urine. Abdominal pain well controlled. ) - Review of Systems General: Reports: No Symptoms HEENT: Reports: No Symptoms Pulmonary: Reports: No Symptoms Cardiovascular: Reports: No Symptoms Gastrointestinal: Reports: Abdominal Pain (more around the umbilicus (which was where her pain was on presentation per ER physician)) Genitourinary: Reports: No Symptoms Musculoskeletal: Reports: No Symptoms Skin: Reports: No Symptoms - Patient Data Vitals - Most Recent: Last Vital Signs Temp 37.1 C 05/31/19 05:00 Pulse 106 H 05/30/19 22:34 Resp 14 05/31/19 07:00 BP 114/66 05/31/19 07:00 Pulse Ox 98 05/31/19 07:00 Weight - Most Recent: 67.449 kg I&O - Last 24 Hours: Intake & Output 05/30/19 05/31/19 05/31/19 22:59 06:59 14:59 Intake Total 60 Output Total 450 Balance -390 Lab Results Last 24 Hrs: Laboratory Results - last 24 hr 05/30/19 05/30/19 05/30/19 Range/Units 19:45 19:45 19:45 WBC 18.08 H (4.0-11.0) K/uL RBC 4.67 (4.30-5.90) M/uL Hgb 14.1 (12.0-16.0) g/dL Hct 41.8 (36.0-46.0) % MCV 89.5 (80.0-98.0) fL MCH 30.2 (27.0-32.0) pg MCHC 33.7 (31.0-37.0) g/dL RDW Std Deviation 40.3 (28.0-62.0) fl RDW Coeff of Jamal 12 (11.0-15.0) % Plt Count 296 (150-400) K/uL MPV 8.90 (7.40-12.00) fL Neut % (Auto) 82.1 H (48.0-80.0) % Lymph % (Auto) 8.7 L (16.0-40.0) % [place] % (Auto) 9.0 (0.0-15.0) % Eos % (Auto) 0.1 (0.0-7.0) % Baso % (Auto) 0.1 (0.0-1.5) % Neut # (Auto) 14.9 H (1.4-5.7) K/uL Lymph # (Auto) 1.6 (0.6-2.4) K/uL [place] # (Auto) 1.6 H (0.0-0.8) K/uL Eos # (Auto) 0.0 (0.0-0.7) K/uL Baso # (Auto) 0.0 (0.0-0.1) K/uL Nucleated RBC % 0.0 /100WBC Nucleated RBCs # 0 K/uL Lactate 1.3 (0.20-2.00) mmol/L Sodium 140 (136-145) mmol/L Potassium 3.4 L (3.5-5.1) mmol/L Chloride 104 (98-107) mmol/L Carbon Dioxide 23.0 (21.0-32.0) mmol/L BUN 14 (7.0-18.0) mg/dL Creatinine 0.9 (0.6-1.0) mg/dL Est Cr Clr Drug Dosing 84.01 mL/min Estimated GFR (MDRD) > 60.0 ml/min Glucose 124 H (74-106) mg/dL Calcium 8.7 (8.5-10.1) mg/dL Phosphorus (2.6-4.7) mg/dL Magnesium (1.8-2.4) mg/dL Total Bilirubin 0.7 (0.2-1.0) mg/dL AST 28 (15-37) IU/L ALT 37 (14-63) IU/L Alkaline Phosphatase 98 (46-116) U/L Total Protein 8.0 (6.4-8.2) g/dL Albumin 4.1 (3.4-5.0) g/dL Globulin 3.9 (2.6-4.0) g/dL Albumin/Globulin Ratio 1.1 (0.9-1.6) Lipase 125 (73-393) U/L HCG, Qual (NEG) 05/30/19 05/31/19 05/31/19 Range/Units 19:45 05:36 05:36 WBC 9.69 (4.0-11.0) K/uL RBC 3.84 L (4.30-5.90) M/uL Hgb 11.3 L (12.0-16.0) g/dL Hct 34.5 L (36.0-46.0) % MCV 89.8 (80.0-98.0) fL MCH 29.4 (27.0-32.0) pg MCHC 32.8 (31.0-37.0) g/dL RDW Std Deviation 40.1 (28.0-62.0) fl RDW Coeff of Jamal 12 (11.0-15.0) % Plt Count 214 (150-400) K/uL MPV 8.70 (7.40-12.00) fL Neut % (Auto) 69.0 (48.0-80.0) % Lymph % (Auto) 20.1 (16.0-40.0) % [place] % (Auto) 10.5 (0.0-15.0) % Eos % (Auto) 0.3 (0.0-7.0) % Baso % (Auto) 0.1 (0.0-1.5) % Neut # (Auto) 6.7 H (1.4-5.7) K/uL Lymph # (Auto) 2.0 (0.6-2.4) K/uL [place] # (Auto) 1.0 H (0.0-0.8) K/uL Eos # (Auto) 0.0 (0.0-0.7) K/uL Baso # (Auto) 0.0 (0.0-0.1) K/uL Nucleated RBC % 0.0 /100WBC Nucleated RBCs # 0 K/uL Lactate (0.20-2.00) mmol/L Sodium 141 (136-145) mmol/L Potassium 3.6 (3.5-5.1) mmol/L Chloride 107 (98-107) mmol/L Carbon Dioxide 26.8 (21.0-32.0) mmol/L BUN 7 (7.0-18.0) mg/dL Creatinine 0.7 (0.6-1.0) mg/dL Est Cr Clr Drug Dosing 108.01 mL/min Estimated GFR (MDRD) > 60.0 ml/min Glucose 101 (74-106) mg/dL Calcium 7.5 L (8.5-10.1) mg/dL Phosphorus 2.6 (2.6-4.7) mg/dL Magnesium 1.7 L (1.8-2.4) mg/dL Total Bilirubin (0.2-1.0) mg/dL AST (15-37) IU/L ALT (14-63) IU/L Alkaline Phosphatase (46-116) U/L Total Protein (6.4-8.2) g/dL Albumin (3.4-5.0) g/dL Globulin (2.6-4.0) g/dL Albumin/Globulin Ratio (0.9-1.6) Lipase (73-393) U/L HCG, Qual NEGATIVE (NEG) Med Orders - Current: Current Medications Enoxaparin Sodium (Lovenox) 40 mg SUBCUT Q24H [facility] Hydromorphone HCl (Dilaudid) 0.5 mg IVPUSH Q1H PRN PRN Reason: Pain Last Admin: 05/31/19 06:19 Dose: 0.5 mg Lactated Ringer's (Ringers, Lactated) 1,000 mls @ 100 mls/hr IV ASDIRECTED [facility] Last Admin: 05/31/19 05:42 Dose: 150 mls/hr Piperacillin Sod/Tazobactam (Sod 3.375 gm/ Sodium Chloride) 50 mls @ 100 mls/ hr IV Q6H [facility] Last Admin: 05/31/19 03:10 Dose: 100 mls/hr Ketorolac Tromethamine (Toradol) 15 mg IVPUSH Q6H PRN PRN Reason: Pain Stop: 05/31/19 22:01 Last Admin: 05/31/19 04:09 Dose: 15 mg Ondansetron HCl (Zofran) 4 mg IVPUSH Q6H PRN PRN Reason: Nausea/Vomiting Last Admin: 05/31/19 05:41 Dose: 4 mg Promethazine HCl (Phenergan) 25 mg IM Q6H PRN PRN Reason: Nausea Sodium Chloride (Saline Flush) 10 ml FLUSH ASDIRECTED PRN PRN Reason: Keep Vein Open Sodium Chloride (Saline Flush) 2.5 ml FLUSH ASDIRECTED PRN PRN Reason: Keep Vein Open Sodium Chloride (Normal Saline) 10 ml IV ASDIRECTED PRN PRN Reason: IV Use Discontinued Medications Hydromorphone HCl (Dilaudid) 0.5 mg IVPUSH ONETIME ONE Stop: 05/30/19 22:20 Last Admin: 05/30/19 22:28 Dose: 0.5 mg Sodium Chloride (Normal Saline) 1,000 mls @ 1,000 mls/hr IV .Bolus ONE Stop: 05/30/19 20:53 Last Admin: 05/30/19 20:03 Dose: 1,000 mls/hr Sodium Chloride (Normal Saline) 1,000 mls @ 1,000 mls/hr IV .Bolus ONE Stop: 05/30/19 20:54 Last Admin: 05/30/19 20:04 Dose: 1,000 mls/hr Piperacillin Sod/Tazobactam (Sod 3.375 gm/ Sodium Chloride) 50 mls @ 100 mls/ hr IV ONETIME ONE Stop: 05/30/19 21:45 Last Admin: 05/30/19 21:31 Dose: 100 mls/hr Pantoprazole Sodium 40 mg/ (Sodium Chloride) 10 mls @ 300 mls/hr IV NOW ONE Stop: 05/30/19 22:28 Last Admin: 05/30/19 23:23 Dose: 300 mls/hr Iopamidol (Isovue-370 (76%)) 100 ml IVPUSH ONETIME STA Stop: 05/30/19 20:40 Last Admin: 05/30/19 20:46 Dose: 100 ml Ketorolac Tromethamine (Toradol) 30 mg IVPUSH ONETIME ONE Stop: 05/30/19 22:20 Last Admin: 05/30/19 22:27 Dose: 30 mg Morphine Sulfate (Morphine) 6 mg IVPUSH ONETIME ONE Stop: 05/30/19 19:55 Last Admin: 05/30/19 20:03 Dose: 6 mg Ondansetron HCl (Zofran) 4 mg IVPUSH ONETIME ONE Stop: 05/30/19 19:55 Last Admin: 05/30/19 20:03 Dose: 4 mg - Exam Quality Assessment: Supplemental Oxygen General: Alert, Oriented HEENT: Pupils Equal, Pupils Reactive Lungs: Clear to Auscultation, Normal Respiratory Effort Cardiovascular: Regular Rate, Regular Rhythm GI/Abdominal Exam: Soft, No Distention, No Mass, Tender (mild periumbilical tenderness) Extremities: Normal Inspection Skin: Warm, Dry, Intact Neurological: No New Focal Deficit Psy/Mental Status: Alert, Normal Affect, Normal Mood Sepsis Event Note - Evaluation Sepsis Screening Result: No Definite Risk Current Stage of Sepsis: Sepsis - Focused Exam Sepsis Event Note Statement: Focused Sepsis Exam Completed Vital Signs: Vital Signs Temp Temp Temp Pulse Resp BP Pulse Ox 05/31/19 07:00 14 114/66 98 05/31/19 06:00 15 102/64 95 05/31/19 05:00 37.1 C 14 97/62 96 05/31/19 04:00 36.5 C 15 100/58 L 97 05/31/19 03:00 17 116/61 97 05/31/19 02:00 19 104/59 L 96 05/31/19 01:00 14 102/52 L 97 05/31/19 00:00 17 101/59 L 96 05/30/19 23:55 96 05/30/19 23:00 36.9 C 13 107/73 98 05/30/19 22:34 106 H 18 126/77 99 05/30/19 22:03 38.2 C H 106 H 16 118/73 99 05/30/19 21:33 38.1 C 106 H 16 111/68 99 05/30/19 20:59 37.7 C 109 H 18 122/76 100 Date Exam was Performed: 05/31/19 Time Exam was Performed: 10:04 - Problem List & Annotations (1) Dehydration SNOMED Code(s): 30310939 Code(s): E86.0 - DEHYDRATION Status: Acute Current Visit: Yes (2) Sigmoid diverticulitis SNOMED Code(s): 278956461 Code(s): K57.32 - DVTRCLI OF LG INT W/O PERFORATION OR ABSCESS W/O BLEEDING Status: Acute Current Visit: Yes - Problem List Review Problem List Initiated/Reviewed/Updated: Yes - My Orders Last 24 Hours: Active Orders 24 hr Category Date Time Status Patient Status [ADT] Routine ADT 05/30/19 22:24 Active Communication Order [RC] Q12H Care 05/30/19 22:55 Active Intake and Output [RC] Q4HR Care 05/30/19 22:24 Active May Shower [RC] ASDIRECTED Care 05/30/19 22:23 Active Oxygen Therapy [RC] PRN Care 05/30/19 22:24 Active Pulse Oximetry [RC] CONTINUOUS Care 05/30/19 22:25 Active RT Incentive Spirometry [RC] Q1HWA Care 05/30/19 22:23 Active Telemetry Monitoring [Cardiac Monitoring] [RC] Q8H Care 05/30/19 22:00 Active Up ad Kaylie [RC] ASDIRECTED Care 05/30/19 22:23 Active Vital Signs [RC] Q1H Care 05/30/19 22:24 Active NPO [Nothing Per Oral Diet] [DIET] Diet 05/31/19 Breakfast Active BMP [BASIC METABOLIC PANEL,BMP] [CHEM] AM Lab 06/01/19 05:11 Ordered BMP [BASIC METABOLIC PANEL,BMP] [CHEM] AM Lab 06/02/19 05:11 Ordered BMP [BASIC METABOLIC PANEL,BMP] [CHEM] AM Lab 06/03/19 05:11 Ordered CBC WITH AUTO DIFF [HEME] AM Lab 06/01/19 05:11 Ordered CBC WITH AUTO DIFF [HEME] AM Lab 06/02/19 05:11 Ordered CBC WITH AUTO DIFF [HEME] AM Lab 06/03/19 05:11 Ordered CULTURE BLOOD [BC] Stat Lab 05/30/19 19:45 Received CULTURE BLOOD [BC] Stat Lab 05/30/19 20:04 Received MAGNESIUM [CHEM] AM Lab 06/01/19 05:11 Ordered MAGNESIUM [CHEM] AM Lab 06/02/19 05:11 Ordered MAGNESIUM [CHEM] AM Lab 06/03/19 05:11 Ordered PHOSPHORUS [CHEM] AM Lab 06/01/19 05:11 Ordered PHOSPHORUS [CHEM] AM Lab 06/02/19 05:11 Ordered PHOSPHORUS [CHEM] AM Lab 06/03/19 05:11 Ordered Enoxaparin [Lovenox] Med 05/31/19 08:45 Ordered 40 mg SUBCUT Q24H HYDROmorphone [Dilaudid] Med 05/30/19 22:27 Active 0.5 mg IVPUSH Q1H PRN Ketorolac [Toradol] Med 05/30/19 22:23 Active 15 mg IVPUSH Q6H PRN Lactated Ringers [Ringers, Lactated] 1,000 ml Med 05/30/19 22:00 Active IV ASDIRECTED Ondansetron [Zofran] Med 05/30/19 22:28 Active 4 mg IVPUSH Q6H PRN Piperacillin/Tazobactam [Piperacil-Tazobact] 3.375 gm Med 05/31/19 03:00 Active Sodium Chloride 0.9% [Normal Saline] 50 ml IV Q6H Promethazine [Phenergan] Med 05/30/19 22:28 Active 25 mg IM Q6H PRN Sodium Chloride 0.9% [Normal Saline] Med 05/30/19 22:23 Active 10 ml IV ASDIRECTED PRN Sodium Chloride 0.9% [Saline Flush] Med 05/30/19 22:23 Active 10 ml FLUSH ASDIRECTED PRN Sodium Chloride 0.9% [Saline Flush] Med 05/30/19 22:23 Active 2.5 ml FLUSH ASDIRECTED PRN Blood Culture x2 Reflex Set [OM.PC] Stat Oth 05/30/19 19:54 Ordered Peripheral IV Insertion Adult [OM.PC] Urgent Oth 05/30/19 22:23 Ordered Resuscitation Status Routine Resus Stat 05/30/19 22:23 Ordered Medication Orders Enoxaparin Sodium (Lovenox) 40 mg SUBCUT Q24H [facility] Hydromorphone HCl (Dilaudid) 0.5 mg IVPUSH Q1H PRN PRN Reason: Pain Last Admin: 05/31/19 06:19 Dose: 0.5 mg Admin: 05/31/19 04:33 Dose: 0.5 mg Admin: 05/31/19 01:47 Dose: 0.5 mg Admin: 05/31/19 00:12 Dose: 0.5 mg Lactated Ringer's (Ringers, Lactated) 1,000 mls @ 100 mls/hr IV ASDIRECTED [facility] Last Admin: 05/31/19 05:42 Dose: 150 mls/hr Infusion: 05/31/19 04:43 Dose: 150 mls/hr Admin: 05/30/19 22:02 Dose: 150 mls/hr Piperacillin Sod/Tazobactam (Sod 3.375 gm/ Sodium Chloride) 50 mls @ 100 mls/ hr IV Q6H [facility] Last Admin: 05/31/19 03:10 Dose: 100 mls/hr Ketorolac Tromethamine (Toradol) 15 mg IVPUSH Q6H PRN PRN Reason: Pain Stop: 05/31/19 22:01 Last Admin: 05/31/19 04:09 Dose: 15 mg Ondansetron HCl (Zofran) 4 mg IVPUSH Q6H PRN PRN Reason: Nausea/Vomiting Last Admin: 05/31/19 05:41 Dose: 4 mg Promethazine HCl (Phenergan) 25 mg IM Q6H PRN PRN Reason: Nausea Sodium Chloride (Saline Flush) 10 ml FLUSH ASDIRECTED PRN PRN Reason: Keep Vein Open Sodium Chloride (Saline Flush) 2.5 ml FLUSH ASDIRECTED PRN PRN Reason: Keep Vein Open Sodium Chloride (Normal Saline) 10 ml IV ASDIRECTED PRN PRN Reason: IV Use - Plan Plan (Free Text/Narrative):: Patient is a 33 year old female who presented last evening with perforated diverticulitis and sepsis (tachycardic, febrile). Patient appears to be much better this morning. Her abdominal pain is well controlled and her vitals are stable. Pain: prn toradol and IV dilaudid. Continue for now. 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 Pulm: Stable. Encourage IS use. Can be out of bed. GI: NPO for now. If still stable this evening and abdominal pain minimal will advance to clears. Renal: UOP adequate. BUN/Cr stable. Will replace mag today. ID: Continue IV zosyn for now. Consider switching to orals tomorrow. Heme: Hgb decreased however this is likely dilutional. Will continue to monitor. Px: IV PPI, lovenox to start today, SCDs
[2019-05-31] MEDS ORDERED: Magnesium Sulfate/Water 2 GM in Premix Bag 1 BAG IV ONE (10:11)
[2019-05-31] MEDS: Enoxaparin 40 MG/0.4 ML Syringe SUBCUT SCH (10:19)
[2019-05-31] MEDS ORDERED: Ondansetron 4 MG/2 ML SDV IVPUSH ONE (12:34)
--- NOTE | 2019-05-31 12:40 | PCM.SN ---
- Free Text/Narrative Note: I was called to reassess the patient due to increased nausea and an episode of emesis. Along with this her abdominal pain, got worse. She was given IV zofran 4mg with minimal relief. IV dilaudid did help with her pain. Vitals are stable. On physical exam her abdomen has not changed. She is not distended and is only mildly tender in the periumbilical area extending into LUQ. Likely the nausea and episode of emesis is secondary to the inflammation due to the infection. I wrote for a scopolamine patch to be placed and an extra dose of IV zofran 4mg to be given. Will keep her NPO today with IVF ongoing. Will continue to monitor.
[2019-05-31] MEDS: Scopolamine 1.5 MG Transdermal Patch TRDERM SCH (13:13)
[2019-06-01] MEDS: Lactated Ringers 1,000 ML IV SCH ×2 (01:25→12:25)
[2019-06-01] MEDS: Piperacillin/Tazobactam 3.375 GM in Sodium Chloride 0.9% 50 ML IV SCH ×4 (03:17→20:46)
[2019-06-01] MEDS: HYDROmorphone 1 MG/ML Syringe IVPUSH PRN (05:27)
[2019-06-01 05:48] LABS: BLOOD UREA NITROGEN,BUN 9 mg/dL (7.0-18.0); CARBON DIOXIDE,CO2 23.5 mmol/L (21.0-32.0); CHLORIDE,CL 105 mmol/L (98-107); GLUCOSE RANDOM 71 mg/dL (74-106); POTASSIUM,K 3.8 mmol/L (3.5-5.1); SODIUM,NA 139 mmol/L (136-145)
[2019-06-01] MEDS: Acetaminophen/oxyCODONE 325-5 MG Tab PO PRN ×2 (08:20→20:46)
[2019-06-01] MEDS: Enoxaparin 40 MG/0.4 ML Syringe SUBCUT SCH (08:26)
--- NOTE | 2019-06-01 10:50 | PCM.SURGPN ---
- General Info Date of Service: 06/01/19 Functional Status: Reports: Pain Controlled, Urinating, Incentive Spirometry, Other (Patient has not passed gas since yesterday, but no longer feeling nauseated. ) - Review of Systems General: Reports: Weakness HEENT: Reports: No Symptoms Pulmonary: Reports: No Symptoms Cardiovascular: Reports: No Symptoms Gastrointestinal: Reports: No Symptoms Musculoskeletal: Reports: No Symptoms Skin: Reports: No Symptoms - Patient Data Vitals - Most Recent: Last Vital Signs Temp 37.2 C 06/01/19 08:00 Pulse 106 H 05/30/19 22:34 Resp 15 06/01/19 08:00 BP 103/60 06/01/19 08:00 Pulse Ox 97 06/01/19 08:00 Weight - Most Recent: 61.598 kg I&O - Last 24 Hours: Intake & Output 05/31/19 06/01/19 06/01/19 22:59 06:59 14:59 Intake Total 1610 983 50 Output Total 800 550 Balance 810 433 50 Lab Results Last 24 Hrs: Laboratory Results - last 24 hr 06/01/19 06/01/19 Range/Units 05:20 05:20 WBC 7.23 (4.0-11.0) K/uL RBC 3.73 L (4.30-5.90) M/uL Hgb 11.1 L (12.0-16.0) g/dL Hct 33.8 L (36.0-46.0) % MCV 90.6 (80.0-98.0) fL MCH 29.8 (27.0-32.0) pg MCHC 32.8 (31.0-37.0) g/dL RDW Std Deviation 40.3 (28.0-62.0) fl RDW Coeff of Jamal 12 (11.0-15.0) % Plt Count 223 (150-400) K/uL MPV 8.90 (7.40-12.00) fL Neut % (Auto) 67.8 (48.0-80.0) % Lymph % (Auto) 18.9 (16.0-40.0) % [place] % (Auto) 12.2 (0.0-15.0) % Eos % (Auto) 0.8 (0.0-7.0) % Baso % (Auto) 0.3 (0.0-1.5) % Neut # (Auto) 4.9 (1.4-5.7) K/uL Lymph # (Auto) 1.4 (0.6-2.4) K/uL [place] # (Auto) 0.9 H (0.0-0.8) K/uL Eos # (Auto) 0.1 (0.0-0.7) K/uL Baso # (Auto) 0.0 (0.0-0.1) K/uL Nucleated RBC % 0.0 /100WBC Nucleated RBCs # 0 K/uL Sodium 139 (136-145) mmol/L Potassium 3.8 (3.5-5.1) mmol/L Chloride 105 (98-107) mmol/L Carbon Dioxide 23.5 (21.0-32.0) mmol/L BUN 9 (7.0-18.0) mg/dL Creatinine 0.8 (0.6-1.0) mg/dL Est Cr Clr Drug Dosing 94.51 mL/min Estimated GFR (MDRD) > 60.0 ml/min Glucose 71 L (74-106) mg/dL Calcium 7.6 L (8.5-10.1) mg/dL Phosphorus 2.6 (2.6-4.7) mg/dL Magnesium 1.8 (1.8-2.4) mg/dL Len Results Last 24 Hrs: Microbiology 05/30/19 20:04 Aerobic Blood Culture - Preliminary Blood - Venous - Lab Draw NO GROWTH AFTER 1 DAY Anaerobic Blood Culture - Preliminary NO GROWTH AFTER 1 DAY 05/30/19 19:45 Aerobic Blood Culture - Preliminary Blood - Venous NO GROWTH AFTER 1 DAY Anaerobic Blood Culture - Preliminary NO GROWTH AFTER 1 DAY Med Orders - Current: Current Medications Enoxaparin Sodium (Lovenox) 40 mg SUBCUT Q24H [facility] Last Admin: 06/01/19 08:26 Dose: 40 mg Hydromorphone HCl (Dilaudid) 0.5 mg IVPUSH Q1H PRN PRN Reason: Pain Last Admin: 06/01/19 05:27 Dose: 0.5 mg Lactated Ringer's (Ringers, Lactated) 1,000 mls @ 100 mls/hr IV ASDIRECTED [facility] Last Infusion: 06/01/19 01:25 Dose: 100 mls/hr Piperacillin Sod/Tazobactam (Sod 3.375 gm/ Sodium Chloride) 50 mls @ 100 mls/ hr IV Q6H [facility] Last Admin: 06/01/19 08:29 Dose: 100 mls/hr Ondansetron HCl (Zofran) 4 mg IVPUSH Q6H PRN PRN Reason: Nausea/Vomiting Last Admin: 05/31/19 11:26 Dose: 4 mg Oxycodone/Acetaminophen (Percocet 325-5 Mg) 2 tab PO Q4H PRN PRN Reason: Pain (severe 7-10) Last Admin: 06/01/19 08:20 Dose: 2 tab Promethazine HCl (Phenergan) 25 mg IM Q6H PRN PRN Reason: Nausea Scopolamine (Transderm-Scop) 1.5 mg TRDERM Q72H [facility] Last Admin: 05/31/19 13:13 Dose: 1.5 mg Sodium Chloride (Saline Flush) 10 ml FLUSH ASDIRECTED PRN PRN Reason: Keep Vein Open Sodium Chloride (Saline Flush) 2.5 ml FLUSH ASDIRECTED PRN PRN Reason: Keep Vein Open Sodium Chloride (Normal Saline) 10 ml IV ASDIRECTED PRN PRN Reason: IV Use Discontinued Medications Hydromorphone HCl (Dilaudid) 0.5 mg IVPUSH ONETIME ONE Stop: 05/30/19 22:20 Last Admin: 05/30/19 22:28 Dose: 0.5 mg Sodium Chloride (Normal Saline) 1,000 mls @ 1,000 mls/hr IV .Bolus ONE Stop: 05/30/19 20:53 Last Admin: 05/30/19 20:03 Dose: 1,000 mls/hr Sodium Chloride (Normal Saline) 1,000 mls @ 1,000 mls/hr IV .Bolus ONE Stop: 05/30/19 20:54 Last Admin: 05/30/19 20:04 Dose: 1,000 mls/hr Piperacillin Sod/Tazobactam (Sod 3.375 gm/ Sodium Chloride) 50 mls @ 100 mls/ hr IV ONETIME ONE Stop: 05/30/19 21:45 Last Admin: 05/30/19 21:31 Dose: 100 mls/hr Pantoprazole Sodium 40 mg/ (Sodium Chloride) 10 mls @ 300 mls/hr IV NOW ONE Stop: 05/30/19 22:28 Last Admin: 05/30/19 23:23 Dose: 300 mls/hr Magnesium Sulfate 2 gm/ Premix 50 mls @ 50 mls/hr IV ONETIME ONE Stop: 05/31/19 11:10 Last Admin: 05/31/19 10:59 Dose: 50 mls/hr Iopamidol (Isovue-370 (76%)) 100 ml IVPUSH ONETIME STA Stop: 05/30/19 20:40 Last Admin: 05/30/19 20:46 Dose: 100 ml Ketorolac Tromethamine (Toradol) 30 mg IVPUSH ONETIME ONE Stop: 05/30/19 22:20 Last Admin: 05/30/19 22:27 Dose: 30 mg Ketorolac Tromethamine (Toradol) 15 mg IVPUSH Q6H PRN PRN Reason: Pain Stop: 05/31/19 22:01 Last Admin: 05/31/19 21:01 Dose: 15 mg Morphine Sulfate (Morphine) 6 mg IVPUSH ONETIME ONE Stop: 05/30/19 19:55 Last Admin: 05/30/19 20:03 Dose: 6 mg Ondansetron HCl (Zofran) 4 mg IVPUSH ONETIME ONE Stop: 05/30/19 19:55 Last Admin: 05/30/19 20:03 Dose: 4 mg Ondansetron HCl (Zofran) 4 mg IVPUSH ONETIME ONE Stop: 05/31/19 12:35 Last Admin: 05/31/19 13:12 Dose: 4 mg - Exam Wound/Incisions: Healing Well General: Alert, Oriented HEENT: Pupils Equal Neck: Supple Lungs: Clear to Auscultation, Normal Respiratory Effort Cardiovascular: Regular Rate, Regular Rhythm GI/Abdominal Exam: Soft, Non-Tender, No Distention, No Mass. No: Guarding, Rigid, Rebound Extremities: Normal Inspection, Normal Range of Motion Skin: Warm, Dry, Intact Neurological: No New Focal Deficit Psy/Mental Status: Alert, Normal Affect, Normal Mood Sepsis Event Note - Evaluation Sepsis Screening Result: No Definite Risk - Focused Exam Vital Signs: Vital Signs Temp Resp BP Pulse Ox 06/01/19 08:00 37.2 C 15 103/60 97 06/01/19 07:00 15 90/48 L 98 06/01/19 06:00 20 99/62 97 06/01/19 05:00 18 100/54 L 98 06/01/19 04:00 36.6 C 17 97/53 L 98 06/01/19 03:00 19 93/55 L 96 06/01/19 02:00 18 96/52 L 96 06/01/19 01:00 19 91/60 97 06/01/19 00:00 17 95/55 L 97 05/31/19 23:00 36.9 C 20 101/60 97 Date Exam was Performed: 06/01/19 Time Exam was Performed: 10:44 - Problem List & Annotations (1) Dehydration SNOMED Code(s): 23196925 Code(s): E86.0 - DEHYDRATION Status: Acute Current Visit: Yes (2) Sigmoid diverticulitis SNOMED Code(s): 025169644 Code(s): K57.32 - DVTRCLI OF LG INT W/O PERFORATION OR ABSCESS W/O BLEEDING Status: Acute Current Visit: Yes - Problem List Review Problem List Initiated/Reviewed/Updated: Yes - My Orders Last 24 Hours: Active Orders 24 hr Category Date Time Status Transfer Patient (Change bed) [ADT] Routine ADT 06/01/19 07:46 Ordered Clear Liquid Diet [DIET] Diet 06/01/19 Lunch Active BMP [BASIC METABOLIC PANEL,BMP] [CHEM] AM Lab 06/02/19 05:11 Ordered BMP [BASIC METABOLIC PANEL,BMP] [CHEM] AM Lab 06/03/19 05:11 Ordered CBC WITH AUTO DIFF [HEME] AM Lab 06/02/19 05:11 Ordered CBC WITH AUTO DIFF [HEME] AM Lab 06/03/19 05:11 Ordered MAGNESIUM [CHEM] AM Lab 06/02/19 05:11 Ordered MAGNESIUM [CHEM] AM Lab 06/03/19 05:11 Ordered PHOSPHORUS [CHEM] AM Lab 06/02/19 05:11 Ordered PHOSPHORUS [CHEM] AM Lab 06/03/19 05:11 Ordered Acetaminophen/oxyCODONE [Percocet 325-5 MG] Med 06/01/19 07:45 Active 2 tab PO Q4H PRN Scopolamine [Transderm-Scop] Med 05/31/19 12:45 Active 1.5 mg TRDERM Q72H Medication Orders Enoxaparin Sodium (Lovenox) 40 mg SUBCUT Q24H [facility] Last Admin: 06/01/19 08:26 Dose: 40 mg Admin: 05/31/19 10:19 Dose: 40 mg Hydromorphone HCl (Dilaudid) 0.5 mg IVPUSH Q1H PRN PRN Reason: Pain Last Admin: 06/01/19 05:27 Dose: 0.5 mg Admin: 05/31/19 19:42 Dose: 0.5 mg Admin: 05/31/19 10:01 Dose: 0.5 mg Admin: 05/31/19 06:19 Dose: 0.5 mg Admin: 05/31/19 04:33 Dose: 0.5 mg Admin: 05/31/19 01:47 Dose: 0.5 mg Admin: 05/31/19 00:12 Dose: 0.5 mg Lactated Ringer's (Ringers, Lactated) 1,000 mls @ 100 mls/hr IV ASDIRECTED [facility] Last Infusion: 06/01/19 01:25 Dose: 100 mls/hr Admin: 06/01/19 01:25 Dose: 150 mls/hr Infusion: 05/31/19 21:31 Dose: 150 mls/hr Admin: 05/31/19 14:50 Dose: 150 mls/hr Infusion: 05/31/19 12:23 Dose: 150 mls/hr Admin: 05/31/19 05:42 Dose: 150 mls/hr Infusion: 05/31/19 04:43 Dose: 150 mls/hr Admin: 05/30/19 22:02 Dose: 150 mls/hr Piperacillin Sod/Tazobactam (Sod 3.375 gm/ Sodium Chloride) 50 mls @ 100 mls/ hr IV Q6H [facility] Last Admin: 06/01/19 08:29 Dose: 100 mls/hr Infusion: 06/01/19 03:47 Dose: 100 mls/hr Admin: 06/01/19 03:17 Dose: 100 mls/hr Infusion: 05/31/19 20:40 Dose: 100 mls/hr Admin: 05/31/19 20:10 Dose: 100 mls/hr Infusion: 05/31/19 15:21 Dose: 100 mls/hr Admin: 05/31/19 14:51 Dose: 100 mls/hr Infusion: 05/31/19 09:39 Dose: 100 mls/hr Admin: 05/31/19 09:09 Dose: 100 mls/hr Infusion: 05/31/19 03:40 Dose: 100 mls/hr Admin: 05/31/19 03:10 Dose: 100 mls/hr Ondansetron HCl (Zofran) 4 mg IVPUSH Q6H PRN PRN Reason: Nausea/Vomiting Last Admin: 05/31/19 11:26 Dose: 4 mg Admin: 05/31/19 05:41 Dose: 4 mg Oxycodone/Acetaminophen (Percocet 325-5 Mg) 2 tab PO Q4H PRN PRN Reason: Pain (severe 7-10) Last Admin: 06/01/19 08:20 Dose: 2 tab Promethazine HCl (Phenergan) 25 mg IM Q6H PRN PRN Reason: Nausea Scopolamine (Transderm-Scop) 1.5 mg TRDERM Q72H [facility] Last Admin: 05/31/19 13:13 Dose: 1.5 mg Sodium Chloride (Saline Flush) 10 ml FLUSH ASDIRECTED PRN PRN Reason: Keep Vein Open Sodium Chloride (Saline Flush) 2.5 ml FLUSH ASDIRECTED PRN PRN Reason: Keep Vein Open Sodium Chloride (Normal Saline) 10 ml IV ASDIRECTED PRN PRN Reason: IV Use - Plan Plan (Free Text/Narrative):: Patient had no acute events overnight. Her WBC is within normal limits. Hemoglobin is stable. Her abdominal pain is still present but well controlled with medications. Vitals were stable. Pain: Po percocet 325-5mg 2 tab q 4hr prn pain. IV toradol 15 mg q 6hr prn pain. IV dilaudid 0.5mg q 1hr for severe pain only. CV: Vitals stable overall. D/C cardiac monitoring. Pulm: D/C pulse oximeter. Encourage OOB activity and IS use. GI: Will start clear liquid diet today. Will stick with that until passing gas. Scopolamine patch in place. Continue for now. Prn zofran and IM phenergan. Added multivitamin daily. Renal: Continue IV fluids until having adequate po intake. UOP adequate. BUN/Cr WNL. ID: Continue IV zosyn for today. If tolerating po diet without issues will switch to oral antibiotics tomorrow. Px: IM Lovenox, SCDs, will switch to oral PPI. Transferred to floor today.
[2019-06-01] MEDS: Omeprazole 20 MG Cap.CR PO SCH (11:19)
[2019-06-01] MEDS: Multivitamin Tab PO SCH (20:45)
[2019-06-02] MEDS: Lactated Ringers 1,000 ML IV SCH (00:28)
[2019-06-02] MEDS: Ondansetron 4 MG/2 ML SDV IVPUSH PRN (01:39)
[2019-06-02] MEDS: Piperacillin/Tazobactam 3.375 GM in Sodium Chloride 0.9% 50 ML IV SCH (03:32)
[2019-06-02] MEDS: Omeprazole 20 MG Cap.CR PO SCH (06:44)
[2019-06-02] MEDS: Acetaminophen/oxyCODONE 325-5 MG Tab PO PRN ×2 (06:45→22:31)
[2019-06-02] MEDS ORDERED: Omeprazole 20 MG Cap.CR PO SCH (07:30)
[2019-06-02] MEDS ORDERED: Ciprofloxacin in D5W 400 MG in Premix Bag 1 BAG IV SCH ×2 (07:30)
[2019-06-02] MEDS: Enoxaparin 40 MG/0.4 ML Syringe SUBCUT SCH (07:45)
[2019-06-02] MEDS: metroNIDAZOLE 250 MG Tab PO SCH ×3 (07:53→18:49)
[2019-06-02] MEDS: Polyethylene Glycol 3350 Powder 17 GM Packet PO SCH (08:41)
[2019-06-02] MEDS: Ciprofloxacin 500 MG Tab PO SCH ×2 (08:41→20:10)
--- NOTE | 2019-06-02 09:46 | PCM.SURGPN ---
- General Info Date of Service: 06/02/19 Functional Status: Reports: Pain Controlled, Tolerating Diet, Ambulating, Urinating, New Symptoms (One episode of emesis last night however patient admits this was after eating too much and after pain medication. No nausea this am and no vomiting since. ), Other (Passing flatus this am. ) - Review of Systems General: Reports: No Symptoms HEENT: Reports: No Symptoms Pulmonary: Reports: No Symptoms Cardiovascular: Reports: No Symptoms Gastrointestinal: Reports: Flatus. Denies: Diarrhea, Nausea, Vomiting Musculoskeletal: Reports: No Symptoms Skin: Reports: No Symptoms - Patient Data Vitals - Most Recent: Last Vital Signs Temp 37.0 C 06/02/19 07:03 Pulse 60 06/02/19 07:03 Resp 16 06/02/19 07:03 BP 93/62 06/02/19 07:03 Pulse Ox 98 06/02/19 07:03 Weight - Most Recent: 61.598 kg I&O - Last 24 Hours: Intake & Output 06/01/19 06/02/19 06/02/19 22:59 06:59 14:59 Intake Total 699 1570 Output Total 2030 Balance 699 -460 Lab Results Last 24 Hrs: Laboratory Results - last 24 hr 06/02/19 06/02/19 06/02/19 Range/Units 00:02 00:49 05:05 WBC 4.48 (4.0-11.0) K/uL RBC 3.57 L (4.30-5.90) M/uL Hgb 10.7 L (12.0-16.0) g/dL Hct 32.0 L (36.0-46.0) % MCV 89.6 (80.0-98.0) fL MCH 30.0 (27.0-32.0) pg MCHC 33.4 (31.0-37.0) g/dL RDW Std Deviation 39.0 (28.0-62.0) fl RDW Coeff of Jamal 12 (11.0-15.0) % Plt Count 219 (150-400) K/uL MPV 9.00 (7.40-12.00) fL Neut % (Auto) 54.1 (48.0-80.0) % Lymph % (Auto) 29.2 (16.0-40.0) % [place] % (Auto) 13.8 (0.0-15.0) % Eos % (Auto) 2.7 (0.0-7.0) % Baso % (Auto) 0.2 (0.0-1.5) % Neut # (Auto) 2.4 (1.4-5.7) K/uL Lymph # (Auto) 1.3 (0.6-2.4) K/uL [place] # (Auto) 0.6 (0.0-0.8) K/uL Eos # (Auto) 0.1 (0.0-0.7) K/uL Baso # (Auto) 0.0 (0.0-0.1) K/uL Nucleated RBC % 0.0 /100WBC Nucleated RBCs # 0 K/uL POC Glucose 64 124 H (60-110) mg/dL Len Results Last 24 Hrs: Microbiology 05/30/19 20:04 Aerobic Blood Culture - Preliminary Blood - Venous - Lab Draw NO GROWTH AFTER 2 DAYS Anaerobic Blood Culture - Preliminary NO GROWTH AFTER 2 DAYS 05/30/19 19:45 Aerobic Blood Culture - Preliminary Blood - Venous NO GROWTH AFTER 2 DAYS Anaerobic Blood Culture - Preliminary NO GROWTH AFTER 2 DAYS Med Orders - Current: Current Medications Ciprofloxacin (Ciprofloxacin Hcl) 500 mg PO BID [facility] Last Admin: 06/02/19 08:41 Dose: 500 mg Enoxaparin Sodium (Lovenox) 40 mg SUBCUT Q24H [facility] Last Admin: 06/02/19 07:45 Dose: 40 mg Hydromorphone HCl (Dilaudid) 0.5 mg IVPUSH Q1H PRN PRN Reason: Pain Last Admin: 06/01/19 05:27 Dose: 0.5 mg Metronidazole (Metronidazole) 250 mg PO Q6H [facility] Last Admin: 06/02/19 07:53 Dose: 250 mg Multivitamins/Minerals/Vitamin C (Tab-A-Eva) 1 tab PO BEDTIME [facility] Last Admin: 06/01/19 20:45 Dose: 1 tab Omeprazole (Omeprazole) 20 mg PO ACBREAKFAST [facility] Last Admin: 06/02/19 06:44 Dose: 20 mg Ondansetron HCl (Zofran) 4 mg IVPUSH Q6H PRN PRN Reason: Nausea/Vomiting Last Admin: 06/02/19 01:39 Dose: 4 mg Oxycodone/Acetaminophen (Percocet 325-5 Mg) 2 tab PO Q4H PRN PRN Reason: Pain (severe 7-10) Last Admin: 06/02/19 06:45 Dose: 2 tab Polyethylene Glycol (Miralax) 17 gm PO DAILY [facility] Last Admin: 06/02/19 08:41 Dose: 17 gm Promethazine HCl (Phenergan) 25 mg IM Q6H PRN PRN Reason: Nausea Scopolamine (Transderm-Scop) 1.5 mg TRDERM Q72H [facility] Last Admin: 05/31/19 13:13 Dose: 1.5 mg Sodium Chloride (Saline Flush) 10 ml FLUSH ASDIRECTED PRN PRN Reason: Keep Vein Open Sodium Chloride (Saline Flush) 2.5 ml FLUSH ASDIRECTED PRN PRN Reason: Keep Vein Open Sodium Chloride (Normal Saline) 10 ml IV ASDIRECTED PRN PRN Reason: IV Use Discontinued Medications Hydromorphone HCl (Dilaudid) 0.5 mg IVPUSH ONETIME ONE Stop: 05/30/19 22:20 Last Admin: 05/30/19 22:28 Dose: 0.5 mg Sodium Chloride (Normal Saline) 1,000 mls @ 1,000 mls/hr IV .Bolus ONE Stop: 05/30/19 20:53 Last Admin: 05/30/19 20:03 Dose: 1,000 mls/hr Sodium Chloride (Normal Saline) 1,000 mls @ 1,000 mls/hr IV .Bolus ONE Stop: 05/30/19 20:54 Last Admin: 05/30/19 20:04 Dose: 1,000 mls/hr Piperacillin Sod/Tazobactam (Sod 3.375 gm/ Sodium Chloride) 50 mls @ 100 mls/ hr IV ONETIME ONE Stop: 05/30/19 21:45 Last Admin: 05/30/19 21:31 Dose: 100 mls/hr Lactated Ringer's (Ringers, Lactated) 1,000 mls @ 100 mls/hr IV ASDIRECTED [facility] Last Admin: 06/02/19 00:28 Dose: 100 mls/hr Piperacillin Sod/Tazobactam (Sod 3.375 gm/ Sodium Chloride) 50 mls @ 100 mls/ hr IV Q6H [facility] Last Admin: 06/02/19 03:32 Dose: 100 mls/hr Pantoprazole Sodium 40 mg/ (Sodium Chloride) 10 mls @ 300 mls/hr IV NOW ONE Stop: 05/30/19 22:28 Last Admin: 05/30/19 23:23 Dose: 300 mls/hr Magnesium Sulfate 2 gm/ Premix 50 mls @ 50 mls/hr IV ONETIME ONE Stop: 05/31/19 11:10 Last Admin: 05/31/19 10:59 Dose: 50 mls/hr Ciprofloxacin/Dextrose 400 mg/ (Premix) 200 mls @ 200 mls/hr IV Q12H [facility] Last Admin: 06/02/19 07:59 Dose: Not Given Metronidazole 250 mg/ Premix 50 mls @ 50 mls/hr IV QID [facility] Iopamidol (Isovue-370 (76%)) 100 ml IVPUSH ONETIME STA Stop: 05/30/19 20:40 Last Admin: 05/30/19 20:46 Dose: 100 ml Ketorolac Tromethamine (Toradol) 30 mg IVPUSH ONETIME ONE Stop: 05/30/19 22:20 Last Admin: 05/30/19 22:27 Dose: 30 mg Ketorolac Tromethamine (Toradol) 15 mg IVPUSH Q6H PRN PRN Reason: Pain Stop: 05/31/19 22:01 Last Admin: 05/31/19 21:01 Dose: 15 mg Morphine Sulfate (Morphine) 6 mg IVPUSH ONETIME ONE Stop: 05/30/19 19:55 Last Admin: 05/30/19 20:03 Dose: 6 mg Omeprazole (Omeprazole) 20 mg PO ACBREAKFAST [facility] Ondansetron HCl (Zofran) 4 mg IVPUSH ONETIME ONE Stop: 05/30/19 19:55 Last Admin: 05/30/19 20:03 Dose: 4 mg Ondansetron HCl (Zofran) 4 mg IVPUSH ONETIME ONE Stop: 05/31/19 12:35 Last Admin: 05/31/19 13:12 Dose: 4 mg - Exam General: Alert, Oriented HEENT: Pupils Equal, Pupils Reactive Lungs: Normal Respiratory Effort Cardiovascular: Regular Rate GI/Abdominal Exam: Soft, Non-Tender, No Distention, No Mass Sepsis Event Note - Evaluation Sepsis Screening Result: No Definite Risk - Focused Exam Vital Signs: Vital Signs Temp Temp Pulse Resp BP Pulse Ox 06/02/19 07:03 37.0 C 60 16 93/62 98 06/02/19 04:00 36.8 C 71 15 102/58 L 98 06/02/19 00:00 36.9 C 62 17 100/56 L 97 Date Exam was Performed: 06/02/19 Time Exam was Performed: 09:43 - Problem List & Annotations (1) Dehydration SNOMED Code(s): 19721834 Code(s): E86.0 - DEHYDRATION Status: Acute Current Visit: Yes (2) Sigmoid diverticulitis SNOMED Code(s): 198726056 Code(s): K57.32 - DVTRCLI OF LG INT W/O PERFORATION OR ABSCESS W/O BLEEDING Status: Acute Current Visit: Yes - Problem List Review Problem List Initiated/Reviewed/Updated: Yes - My Orders Last 24 Hours: Active Orders 24 hr Category Date Time Status Clear Liquid Diet [DIET] Diet 06/01/19 Lunch Active Full Liquid Diet [DIET] Diet 06/02/19 Lunch Ordered CBC WITH AUTO DIFF [HEME] AM Lab 06/03/19 05:11 Ordered Ciprofloxacin [Ciprofloxacin HCl] Med 06/02/19 09:00 Active 500 mg PO BID Multivitamins [Tab-A-Eva] Med 06/01/19 21:00 Active 1 tab PO BEDTIME Omeprazole Med 06/01/19 10:57 Active 20 mg PO ACBREAKFAST metroNIDAZOLE Med 06/02/19 07:45 Active 250 mg PO Q6H polyethylene glycoL 3350 [MiraLAX] Med 06/02/19 09:00 Active 17 gm PO DAILY Medication Orders Ciprofloxacin (Ciprofloxacin Hcl) 500 mg PO BID [facility] Last Admin: 06/02/19 08:41 Dose: 500 mg Enoxaparin Sodium (Lovenox) 40 mg SUBCUT Q24H [facility] Last Admin: 06/02/19 07:45 Dose: 40 mg Admin: 06/01/19 08:26 Dose: 40 mg Admin: 05/31/19 10:19 Dose: 40 mg Hydromorphone HCl (Dilaudid) 0.5 mg IVPUSH Q1H PRN PRN Reason: Pain Last Admin: 06/01/19 05:27 Dose: 0.5 mg Admin: 05/31/19 19:42 Dose: 0.5 mg Admin: 05/31/19 10:01 Dose: 0.5 mg Admin: 05/31/19 06:19 Dose: 0.5 mg Admin: 05/31/19 04:33 Dose: 0.5 mg Admin: 05/31/19 01:47 Dose: 0.5 mg Admin: 05/31/19 00:12 Dose: 0.5 mg Metronidazole (Metronidazole) 250 mg PO Q6H [facility] Last Admin: 06/02/19 07:53 Dose: 250 mg Multivitamins/Minerals/Vitamin C (Tab-A-Eva) 1 tab PO BEDTIME [facility] Last Admin: 06/01/19 20:45 Dose: 1 tab Omeprazole (Omeprazole) 20 mg PO ACBREAKFAST [facility] Last Admin: 06/02/19 06:44 Dose: 20 mg Admin: 06/01/19 11:19 Dose: 20 mg Ondansetron HCl (Zofran) 4 mg IVPUSH Q6H PRN PRN Reason: Nausea/Vomiting Last Admin: 06/02/19 01:39 Dose: 4 mg Admin: 05/31/19 11:26 Dose: 4 mg Admin: 05/31/19 05:41 Dose: 4 mg Oxycodone/Acetaminophen (Percocet 325-5 Mg) 2 tab PO Q4H PRN PRN Reason: Pain (severe 7-10) Last Admin: 06/02/19 06:45 Dose: 2 tab Admin: 06/01/19 20:46 Dose: 2 tab Admin: 06/01/19 08:20 Dose: 2 tab Polyethylene Glycol (Miralax) 17 gm PO DAILY [facility] Last Admin: 06/02/19 08:41 Dose: 17 gm Promethazine HCl (Phenergan) 25 mg IM Q6H PRN PRN Reason: Nausea Scopolamine (Transderm-Scop) 1.5 mg TRDERM Q72H [facility] Last Admin: 05/31/19 13:13 Dose: 1.5 mg Sodium Chloride (Saline Flush) 10 ml FLUSH ASDIRECTED PRN PRN Reason: Keep Vein Open Sodium Chloride (Saline Flush) 2.5 ml FLUSH ASDIRECTED PRN PRN Reason: Keep Vein Open Sodium Chloride (Normal Saline) 10 ml IV ASDIRECTED PRN PRN Reason: IV Use - Assessment Assessment (Free Text/Narrative):: Patients WBC is normal. Vitals stable. Abdominal exam is stable. Vomiting likely due to combination of medications and food last evening. Will try clears this morning and if this goes well, can advance diet to full liquids. D/C IVF and IV antibiotics. Will switch to po cipro and flagyl. Added miralax scheduled today. May advance diet to regular tomorrow if doing well.
[2019-06-02] MEDS ORDERED: metroNIDAZOLE/Normal Saline 250 MG in Premix Bag 1 BAG IV SCH (12:00)
--- NOTE | 2019-06-02 13:56 | PN ---
THC Physician - Brief Progress [id number]/07/2020 01:32[facility] elderAlex, KALEY - BARBRA (SAVANNAH) - MWN MARY PETERSDate of Service 05/31/2019 01:32HPI/Events of Note Brief eICU Admit Qumnaj24 yof generally wellPresents with sigmoid diverticulitis / perforatio nO/E Seen on cameraVSS, NADDVT Prophylaxis: SCDs GI Prophylaxis: PPIIssuesDiverticulitis with perfora tion (small)Admitted by surgeryConservative management for nowAbxFluids as needed for any hypotension Case reviewed with bedside teamCall with questionsWill followInterventions Major-Infection - evaluati on and management
[2019-06-02] MEDS: Multivitamin Tab PO SCH (20:10)
[2019-06-03] MEDS: metroNIDAZOLE 250 MG Tab PO SCH ×3 (01:22→12:58)
[2019-06-03] MEDS: Omeprazole 20 MG Cap.CR PO SCH (08:08)
[2019-06-03] MEDS: Enoxaparin 40 MG/0.4 ML Syringe SUBCUT SCH (08:09)
[2019-06-03] MEDS: Ciprofloxacin 500 MG Tab PO SCH (08:09)
[2019-06-03] MEDS: Polyethylene Glycol 3350 Powder 17 GM Packet PO SCH (08:09)
--- NOTE | 2019-06-03 09:32 | PCM.DCSUM1 ---
Discharge Summary - Hospital Course Free Text/Narrative:: Patient is a 33 year old female who presented to the ER with abdominal pain. This was associated with fever, chills, nausea, vomiting and malaise. She was tachycardic on arrival and had localized tenderness along he left lateral abdomen. WBC was 18K with a left shift. CT abdomen pelvis showed perforated diverticulitis with a scant amount of free air in the abdomen. She responded well to fluids and her tachycardia resolved. She was admitted to the ICU for close monitoring. Her vitals remained stable overnight. She had one episode of emesis. She was placed on IV zosyn. Over the next couple days her abdominal pain improved. On HD #3 she started passing flatus and diet was advanced to clears. She had one episode of emesis after that, but no further. Her leukocytosis resolved. She was switched to oral cipro and flagyl. She had a small bm and her diet was advanced to regular with no issues. She was cleared for discharge. - Discharge Data Discharge Date: 06/03/19 Discharge Disposition: Home, Self-Care 01 Condition: Stable - Referral to Home Health Primary Care Physician: PCP None - Discharge Diagnosis/Problem(s) (1) Dehydration SNOMED Code(s): 63881095 ICD Code: E86.0 - DEHYDRATION Status: Acute Current Visit: Yes (2) Sigmoid diverticulitis SNOMED Code(s): 418209582 ICD Code: K57.32 - DVTRCLI OF LG INT W/O PERFORATION OR ABSCESS W/O BLEEDING Status: Acute Current Visit: Yes - Patient Instructions Diet: Regular Diet as Tolerated Diet, Other: Avoid nuts, seeds, berries, popcorn Activity: Rest and Relax Today Activity, Other: No work for one week Driving: Do Not Drive (while on narcotics) Showering/Bathing: May Shower Notify Provider of: Fever, Increased Pain, Nausea and/or Vomiting - Discharge Plan *PRESCRIPTION DRUG MONITORING PROGRAM REVIEWED*: Yes *COPY OF PRESCRIPTION DRUG MONITORING REPORT IN PATIENT CLARICE: Yes Prescriptions/Med Rec: Ciprofloxacin [Ciprofloxacin HCl] 500 mg PO BID #14 tablet metroNIDAZOLE 250 mg PO Q6H #28 tablet Home Medications: Home Meds Ciprofloxacin [Ciprofloxacin HCl] 500 mg PO BID #14 tablet 06/03/19 [Rx] metroNIDAZOLE 250 mg PO Q6H #28 tablet 06/03/19 [Rx] Referrals: Suzanne Prince MD [Physician] - - Discharge Summary/Plan Comment DC Time >30 min.: No - General Info Functional Status: Reports: Pain Controlled, Tolerating Diet, Ambulating, Urinating - Review of Systems General: Reports: No Symptoms HEENT: Reports: No Symptoms Pulmonary: Reports: No Symptoms Cardiovascular: Reports: No Symptoms Gastrointestinal: Reports: No Symptoms Genitourinary: Reports: No Symptoms Musculoskeletal: Reports: No Symptoms Skin: Reports: No Symptoms Neurological: Reports: No Symptoms - Patient Data Vitals - Most Recent: Last Vital Signs Temp 37 C 06/03/19 07:28 Pulse 73 06/03/19 07:28 Resp 20 06/03/19 07:28 BP 112/67 06/03/19 07:28 Pulse Ox 98 06/03/19 07:28 Weight - Most Recent: 61.598 kg I&O - Last 24 hours: Intake & Output 06/02/19 06/03/19 06/03/19 22:59 06:59 14:59 Intake Total 520 400 Output Total 1450 850 Balance -930 -450 Lab Results - Last 24 hrs: Laboratory Results - last 24 hr 06/03/19 Range/Units 05:08 WBC 4.37 (4.0-11.0) K/uL RBC 3.91 L (4.30-5.90) M/uL Hgb 11.5 L (12.0-16.0) g/dL Hct 34.9 L (36.0-46.0) % MCV 89.3 (80.0-98.0) fL MCH 29.4 (27.0-32.0) pg MCHC 33.0 (31.0-37.0) g/dL RDW Std Deviation 38.7 (28.0-62.0) fl RDW Coeff of Jamal 12 (11.0-15.0) % Plt Count 269 (150-400) K/uL MPV 9.00 (7.40-12.00) fL Neut % (Auto) 46.4 L (48.0-80.0) % Lymph % (Auto) 36.2 (16.0-40.0) % [place] % (Auto) 14.9 (0.0-15.0) % Eos % (Auto) 2.3 (0.0-7.0) % Baso % (Auto) 0.2 (0.0-1.5) % Neut # (Auto) 2.0 (1.4-5.7) K/uL Lymph # (Auto) 1.6 (0.6-2.4) K/uL [place] # (Auto) 0.7 (0.0-0.8) K/uL Eos # (Auto) 0.1 (0.0-0.7) K/uL Baso # (Auto) 0.0 (0.0-0.1) K/uL Nucleated RBC % 0.0 /100WBC Nucleated RBCs # 0 K/uL ROSE MARIE Results - Last 24 hrs: Microbiology 05/30/19 20:04 Aerobic Blood Culture - Preliminary Blood - Venous - Lab Draw NO GROWTH AFTER 3 DAYS Anaerobic Blood Culture - Preliminary NO GROWTH AFTER 3 DAYS 05/30/19 19:45 Aerobic Blood Culture - Preliminary Blood - Venous NO GROWTH AFTER 3 DAYS Anaerobic Blood Culture - Preliminary NO GROWTH AFTER 3 DAYS Med Orders - Current: Current Medications Ciprofloxacin (Ciprofloxacin Hcl) 500 mg PO BID [facility] Last Admin: 06/03/19 08:09 Dose: 500 mg Enoxaparin Sodium (Lovenox) 40 mg SUBCUT Q24H [facility] Last Admin: 06/03/19 08:09 Dose: 40 mg Hydromorphone HCl (Dilaudid) 0.5 mg IVPUSH Q1H PRN PRN Reason: Pain Last Admin: 06/01/19 05:27 Dose: 0.5 mg Metronidazole (Metronidazole) 250 mg PO Q6H [facility] Last Admin: 06/03/19 08:08 Dose: 250 mg Multivitamins/Minerals/Vitamin C (Tab-A-Eva) 1 tab PO BEDTIME [facility] Last Admin: 06/02/19 20:10 Dose: 1 tab Omeprazole (Omeprazole) 20 mg PO ACBREAKFAST [facility] Last Admin: 06/03/19 08:08 Dose: 20 mg Ondansetron HCl (Zofran) 4 mg IVPUSH Q6H PRN PRN Reason: Nausea/Vomiting Last Admin: 06/02/19 01:39 Dose: 4 mg Oxycodone/Acetaminophen (Percocet 325-5 Mg) 2 tab PO Q4H PRN PRN Reason: Pain (severe 7-10) Last Admin: 06/02/19 22:31 Dose: 2 tab Polyethylene Glycol (Miralax) 17 gm PO DAILY [facility] Last Admin: 06/03/19 08:09 Dose: 17 gm Promethazine HCl (Phenergan) 25 mg IM Q6H PRN PRN Reason: Nausea Scopolamine (Transderm-Scop) 1.5 mg TRDERM Q72H [facility] Last Admin: 05/31/19 13:13 Dose: 1.5 mg Sodium Chloride (Saline Flush) 10 ml FLUSH ASDIRECTED PRN PRN Reason: Keep Vein Open Sodium Chloride (Saline Flush) 2.5 ml FLUSH ASDIRECTED PRN PRN Reason: Keep Vein Open Sodium Chloride (Normal Saline) 10 ml IV ASDIRECTED PRN PRN Reason: IV Use Discontinued Medications Hydromorphone HCl (Dilaudid) 0.5 mg IVPUSH ONETIME ONE Stop: 05/30/19 22:20 Last Admin: 05/30/19 22:28 Dose: 0.5 mg Sodium Chloride (Normal Saline) 1,000 mls @ 1,000 mls/hr IV .Bolus ONE Stop: 05/30/19 20:53 Last Admin: 05/30/19 20:03 Dose: 1,000 mls/hr Sodium Chloride (Normal Saline) 1,000 mls @ 1,000 mls/hr IV .Bolus ONE Stop: 05/30/19 20:54 Last Admin: 05/30/19 20:04 Dose: 1,000 mls/hr Piperacillin Sod/Tazobactam (Sod 3.375 gm/ Sodium Chloride) 50 mls @ 100 mls/ hr IV ONETIME ONE Stop: 05/30/19 21:45 Last Admin: 05/30/19 21:31 Dose: 100 mls/hr Lactated Ringer's (Ringers, Lactated) 1,000 mls @ 100 mls/hr IV ASDIRECTED [facility] Last Admin: 06/02/19 00:28 Dose: 100 mls/hr Piperacillin Sod/Tazobactam (Sod 3.375 gm/ Sodium Chloride) 50 mls @ 100 mls/ hr IV Q6H [facility] Last Admin: 06/02/19 03:32 Dose: 100 mls/hr Pantoprazole Sodium 40 mg/ (Sodium Chloride) 10 mls @ 300 mls/hr IV NOW ONE Stop: 05/30/19 22:28 Last Admin: 05/30/19 23:23 Dose: 300 mls/hr Magnesium Sulfate 2 gm/ Premix 50 mls @ 50 mls/hr IV ONETIME ONE Stop: 05/31/19 11:10 Last Admin: 05/31/19 10:59 Dose: 50 mls/hr Ciprofloxacin/Dextrose 400 mg/ (Premix) 200 mls @ 200 mls/hr IV Q12H [facility] Last Admin: 06/02/19 07:59 Dose: Not Given Metronidazole 250 mg/ Premix 50 mls @ 50 mls/hr IV QID [facility] Iopamidol (Isovue-370 (76%)) 100 ml IVPUSH ONETIME STA Stop: 05/30/19 20:40 Last Admin: 05/30/19 20:46 Dose: 100 ml Ketorolac Tromethamine (Toradol) 30 mg IVPUSH ONETIME ONE Stop: 05/30/19 22:20 Last Admin: 05/30/19 22:27 Dose: 30 mg Ketorolac Tromethamine (Toradol) 15 mg IVPUSH Q6H PRN PRN Reason: Pain Stop: 05/31/19 22:01 Last Admin: 05/31/19 21:01 Dose: 15 mg Morphine Sulfate (Morphine) 6 mg IVPUSH ONETIME ONE Stop: 05/30/19 19:55 Last Admin: 05/30/19 20:03 Dose: 6 mg Omeprazole (Omeprazole) 20 mg PO ACBREAKFAST [facility] Ondansetron HCl (Zofran) 4 mg IVPUSH ONETIME ONE Stop: 05/30/19 19:55 Last Admin: 05/30/19 20:03 Dose: 4 mg Ondansetron HCl (Zofran) 4 mg IVPUSH ONETIME ONE Stop: 05/31/19 12:35 Last Admin: 05/31/19 13:12 Dose: 4 mg - Exam Quality Assessment: Reports: Supplemental Oxygen General: Reports: Alert, Oriented HEENT: Reports: Pupils Equal, Pupils Reactive Lungs: Reports: Normal Respiratory Effort Cardiovascular: Reports: Regular Rate GI/Abdominal Exam: Soft, Non-Tender, No Distention, No Mass Back Exam: Reports: Normal Inspection Extremities: Normal Inspection
[2019-06-03 11:32] VITALS: BP 106/68; PULSE 79
[2019-06-03] MEDS: Scopolamine 1.5 MG Transdermal Patch TRDERM SCH (12:58)
== END 2019-06-03 14:30 | disposition home or self-care (01) | DRG 244 ==
LOC: MW.ED 19:36 → MW.MS 21:44 → MW.ICU 22:05 → MW.MS 06-01 10:20
PROVIDERS: ADMIT Surgery; ATTEND Surgery
DX: K57.20 Diverticulitis of large intestine with perforation and abscess without bleeding (principal); E86.0 Dehydration; R00.0 Tachycardia, unspecified; G89.29 Other chronic pain; M54.9 Dorsalgia, unspecified; M79.7 Fibromyalgia; M54.2 Cervicalgia; G43.909 Migraine, unspecified, not intractable, without status migrainosus; F41.9 Anxiety disorder, unspecified; G62.9 Polyneuropathy, unspecified; Z98.51 Tubal ligation status
CPT/HCPCS: 36415; 74177; 74177-26; 80048; 80053; 82962; 83605; 83690; 83735; 84100; 84703; 85025; 87040; 96361; 96374; 96375; 99284; 99285-25; A9270-GY; C9113; J1170; J1650; J1885; J2270; J2405; J2543; J3475; J7030; J7050; J7120; Q9967

== ENCOUNTER 2019-07-26 08:26 | Day surgery (SDC) | payer BC ==
[~2019-07-26 08:26] MED LIST changes: -Acetaminophen/HYDROcodone 325-5 MG Tab PO PRN; -Bupivacaine 0.25%/EPINEPHrine 1:200,000 10 ML SDV INJECT ONE; -Bupivacaine 25%/EPINEPHrine/PF 30 ML ONE; -EPINEPHrine 1 MG/ML SDV ONE; -Gentamicin 40 MG/ML 2 ML Vial ONE; +Midazolam 1 MG/ML 2 ML SDV ONE; +Ondansetron 4 MG/2 ML SDV ONE; +Propofol 200 MG/20 ML SDV ONE; +Sodium Chloride 0.9% 10 ML SDV IV PRN; +Sodium Chloride 0.9% 10 ML Syringe FLUSH PRN; +Sodium Chloride 0.9% 2.5 ML Syringe FLUSH PRN; -ceFAZolin 1 GM Vial ONE; -ceFAZolin 2 GM in Premix Bag 1 BAG IV ONE; +fentaNYL 100 MCG/2 ML SDV ONE
--- NOTE | 2019-07-26 10:05 | PCM.PREANE ---
Preanesthetic Assessment - Anesthesia/Transfusion/Family Hx Anesthesia History: Prior Anesthesia Without Reaction Family History of Anesthesia Reaction: No Transfusion History: No Prior Transfusion(s) Intubation History: Unknown - Review of Systems General: No Symptoms Pulmonary: No Symptoms Cardiovascular: No Symptoms Gastrointestinal: No Symptoms Neurological: No Symptoms Other: Reports: None - Physical Assessment NPO Status Date: 07/25/19 NPO Status Time: 23:59 Vital Signs: Last Vital Signs Temp 96.8 F L 07/26/19 09:08 Pulse 90 07/26/19 09:08 Resp 16 07/26/19 09:08 BP 110/70 07/26/19 09:08 Pulse Ox 100 07/26/19 09:08 Height: 5 ft 6 in Weight: 63.049 kg ASA Class: 2 Mental Status: Alert & Oriented x3 Airway Class: Mallampati = 2 Dentition: Reports: Normal Dentition ROM/Head Extension: Full Lungs: Clear to Auscultation, Normal Respiratory Effort Cardiovascular: Regular Rate, Regular Rhythm - Lab Values: Laboratory Last Values Urine HCG, Qual NEGATIVE (NEGATIVE) 07/26/19 08:56 - Allergies Allergies/Adverse Reactions: Allergies Allergy/AdvReac Type Severity Reaction Status Date / Time No Known Allergies Allergy Verified 07/20/19 14:00 - Blood Blood Available: No - Anesthesia Plan Pre-Op Medication Ordered: None - Acknowledgements Anesthesia Type Planned: General Anesthesia (tiva) Pt an Appropriate Candidate for the Planned Anesthesia: Yes Alternatives and Risks of Anesthesia Discussed w Pt/Guardian: Yes Pt/Guardian Understands and Agrees with Anesthesia Plan: Yes Additional Comments: PMH: chronic pain syndromes, anxiety PreAnesthesia Questionnaire HEENT History: Reports: Other (See Below) Other HEENT History: wears glasses/contacts Cardiovascular History: Reports: None Respiratory History: Reports: None Gastrointestinal History: Reports: Other (See Below) Other Gastrointestinal History: diverticulitis Genitourinary History: Reports: Renal 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: Musculoskeletal History: Reports: Back Pain, Chronic, Fibromyalgia, Neck Pain, Chronic Neurological History: Reports: Migraines Psychiatric History: Reports: Anxiety Endocrine/Metabolic History: Reports: None Hematologic History: Reports: None Immunologic History: Reports: None Oncologic (Cancer) History: Reports: None Dermatologic History: Reports: None - Infectious Disease History Infectious Disease History: Reports: Chicken Pox - Past Surgical History Head Surgeries/Procedures: Reports: None HEENT Surgical History: Reports: Oral Surgery Other HEENT Surgeries/Procedures: wisdom teeth extraction, dental implants Cardiovascular Surgical History: Reports: None Respiratory Surgical History: Reports: None GI Surgical History: Reports: None Female Surgical History: Reports: Breast Biopsy, Breast Implant, Section, Tubal Ligation Endocrine Surgical History: Reports: None Neurological Surgical History: Reports: None Musculoskeletal Surgical History: Reports: None Oncologic Surgical History: Reports: Biopsy of Breast Dermatological Surgical History: Reports: None - SUBSTANCE USE Smoking Status *Q: Never Smoker Recreational Drug Use History: No - HOME MEDS Home Medications: Home Meds . [No Known Home Meds] 07/20/19 [History] - CURRENT (IN HOUSE) MEDS Current Meds: Current Medications Lactated Ringer's (Ringers, Lactated) 1,000 mls @ 125 mls/hr IV ASDIRECTED [facility] Last Admin: 07/26/19 09:22 Dose: 125 mls/hr Sodium Chloride (Saline Flush) 10 ml FLUSH ASDIRECTED PRN PRN Reason: Keep Vein Open Sodium Chloride (Saline Flush) 2.5 ml FLUSH ASDIRECTED PRN PRN Reason: Keep Vein Open Sodium Chloride (Saline Flush) 10 ml FLUSH ASDIRECTED PRN PRN Reason: Keep Vein Open Sodium Chloride (Saline Flush) 2.5 ml FLUSH ASDIRECTED PRN PRN Reason: Keep Vein Open Sodium Chloride (Normal Saline) 10 ml IV ASDIRECTED PRN PRN Reason: IV Use Discontinued Medications Fentanyl (Sublimaze) Confirm Administered Dose 100 mcg .ROUTE .STK-MED ONE Stop: 07/26/19 07:51 Midazolam HCl (Versed 1 Mg/Ml) Confirm Administered Dose 2 mg .ROUTE .STK-MED ONE Stop: 07/26/19 07:51 Ondansetron HCl (Zofran) Confirm Administered Dose 4 mg .ROUTE .STK-MED ONE Stop: 07/26/19 07:50 Propofol (Diprivan 20 Ml) Confirm Administered Dose 200 mg .ROUTE .STK-MED ONE Stop: 07/26/19 07:50
[2019-07-26] MEDS ORDERED: Propofol 200 MG/20 ML SDV ONE (11:36)
--- NOTE | 2019-07-26 12:06 | PCM.POSTAN ---
POST ANESTHESIA ASSESSMENT - MENTAL STATUS Mental Status: Alert - VITAL SIGNS Vital Signs: Last Vital Signs Temp 36.7 C 07/26/19 11:51 Pulse 88 07/26/19 12:01 Resp 14 07/26/19 12:01 BP 101/64 07/26/19 12:01 Pulse Ox 99 07/26/19 12:01 - RESPIRATORY Respiratory Status: Respiratory Rate WNL - CARDIOVASCULAR CV Status: Pulse Rate WNL - GASTROINTESTINAL GI Status: No Symptoms - PAIN Pain Score: 1 (Cramps) - POST OP HYDRATION Hydration Status: Adequate & Stable - OBSERVATIONS Free Text/Narrative:: Doing well.
[2019-07-26 12:15] VITALS: BP 117/70; PULSE 84
--- NOTE | 2019-07-26 12:45 | PCM48HPAN ---
Post Anesthesia Note - EVALUATION WITHIN 48HRS OF ANESTHETIC Vital Signs in Normal Range: Yes Patient Participated in Evaluation: Yes Respiratory Function Stable: Yes Airway Patent: Yes Cardiovascular Function Stable: Yes Hydration Status Stable: Yes Pain Control Satisfactory: Yes Nausea and Vomiting Control Satisfactory: Yes Mental Status Recovered: Yes Vital Signs: Last Vital Signs Temp 37 C 07/26/19 12:07 Pulse 84 07/26/19 12:07 Resp 14 07/26/19 12:07 BP 117/70 07/26/19 12:07 Pulse Ox 98 07/26/19 12:07
--- NOTE | 2019-07-26 14:32 | PCM.OPNOTE ---
- General Post-Op/Procedure Note Date of Surgery/Procedure: 07/26/19 Operative Procedure(s): Diagnostic colonoscopy with polypectomy Findings: Proximal sigmoid colon polyp, multiple diverticuli of various sizes in the sigmoid colon Pre Op Diagnosis: Diverticulitis Post-Op Diagnosis: Sigmoid colon polyp, sigmoid diverticulosis Anesthesia Technique: [facility] Primary Surgeon: Suzanne Prince Condition: Good Free Text/Narrative:: Intake & Output 07/25/19 07/26/19 07/26/19 22:59 06:59 14:59 Intake Total 800 Balance 800
--- NOTE | 2019-07-26 22:15 | OR ---
SURGEON: SUZANNE PRINCE MD DATE OF PROCEDURE: 07/26/2019 PREOPERATIVE DIAGNOSIS: Diverticulitis. POSTOPERATIVE DIAGNOSES: 1. Sigmoid colon polyp. 2. Diverticulosis of the sigmoid colon. PROCEDURE PERFORMED: Diagnostic colonoscopy with polypectomy. PRIMARY SURGEON: Suzanne Prince MD. ANESTHESIA: MAC. INSTRUMENT USED: Olympus colonoscope. EXTENT OF EXAM: To the cecum. PREPARATION: Good. LIMITATIONS: None. INDICATIONS FOR EXAMINATION: The patient is a 33-year-old female, who was recently diagnosed with diverticulitis and underwent successful conservative treatment with IV antibiotics and hospitalization. It has been greater than 8 weeks since her hospitalization. She has had several episodes of abdominal pain since, but no CT or laboratory evidence of any recurrent diverticulitis. The patient and I discussed the need for a diagnostic colonoscopy. I explained the procedure; expected perioperative course; and risks. The patient verbalized understanding and wishes to proceed. PROCEDURE IN DETAIL: The patient was brought into the OR and placed on the OR table in a left lateral decubitus position. A time-out was completed verifying the patient's name, age, date of , allergies, and procedure to be performed. Monitored anesthesia care was induced and continuous oxygen was provided via nasal cannula throughout the procedure. After adequate sedation was achieved, a digital rectal exam was performed. This exam was within normal limits. A well-lubricated colonoscope was inserted in the rectum and advanced under direct visualization to the level of the cecum. The cecum was identified by both visual and anatomic landmarks. Photographs were taken of the cecal cap as well as with the scope retroflexed within the cecum. The scope was then fully withdrawn while examining the color, texture, anatomy, and integrity of the mucosa from the cecum to the anal canal. The patient was found in the proximal sigmoid colon to have a small sessile polyp. This was removed in piecemeal fashion using a cold biopsy forceps. The sigmoid colon itself had multiple diverticula of varying sizes. Multiple photographs of this were taken. There was no evidence of any inflammation or ulceration along the colonic mucosa. The scope was then brought into the rectum and retroflexed to allow visualization of the anal canal opening. This appeared normal and photographs were taken. The scope was then straightened out and fully withdrawn. The cecum to anus time was 8 minutes. The patient tolerated the procedure well and was transferred to the PACU in stable condition. ENDOSCOPIC DIAGNOSES: 1. Sigmoid colon polyp. 2. Diverticulosis of the sigmoid colon. RECOMMENDATIONS: Follow up in clinic in 2 weeks. VIPUL / LANIE /[id number]
== END 2019-07-26 12:45 | disposition home or self-care (01) ==
LOC: MW.SDS 08:26
PROVIDERS: ATTEND Surgery
DX: K57.30 Diverticulosis of large intestine without perforation or abscess without bleeding (principal); D12.5 Benign neoplasm of sigmoid colon; Z87.19 Personal history of other diseases of the digestive system
CPT/HCPCS: 45380; 81025; J2250; J2405; J2704; J3010; J7120; 00811; 88305

== ENCOUNTER 2019-08-11 18:34 | Emergency (ER) | payer BC ==
--- NOTE | 2019-08-11 19:21 | EDM.PDOC ---
ED HPI GENERAL MEDICAL PROBLEM - General Chief Complaint: Abdominal Pain Stated Complaint: ABDOMINAL PAIN Time Seen by Provider: 08/11/19 18:48 - History of Present Illness INITIAL COMMENTS - FREE TEXT/NARRATIVE: 34-year-old female with history of prior perforated diverticulitis at the beginning of May who is presenting with now 3 days of persistent moderate left lower quadrant abdominal pain that worsens with motion direct pressure on bumps in the road. No associated fevers. She had a colonoscopy several days ago and has been struggling to regain bowel regularity since then. Several bowel still are normal. Her last menstrual period was normally timed at the beginning of the month she denies any vaginal bleeding or discharge. She has a history of ovarian cyst as well. Pain currently 4-5 out of 10. 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: Musculoskeletal History: Reports: Back Pain, Chronic, Fibromyalgia, Neck Pain, Chronic Neurological History: Reports: Migraines Psychiatric History: Reports: Anxiety Endocrine/Metabolic History: Reports: None Insulin Pump Model and Senior Database Programmer: None Hematologic History: Reports: None Immunologic History: Reports: None Oncologic (Cancer) History: Reports: None Dermatologic History: Reports: None - Infectious Disease History Infectious Disease History: Reports: None - Past Surgical History Head Surgeries/Procedures: Reports: None HEENT Surgical History: Reports: Oral Surgery Other HEENT Surgeries/Procedures: wisdom teeth extraction, dental implants Cardiovascular Surgical History: Reports: None Respiratory Surgical History: Reports: None GI Surgical History: Reports: None Female Surgical History: Reports: Breast Biopsy, Breast Implant, Section, Tubal Ligation Endocrine Surgical History: Reports: None Neurological Surgical History: Reports: None Musculoskeletal Surgical History: Reports: None Oncologic Surgical History: Reports: Biopsy of Breast Dermatological Surgical History: Reports: None Social & Family History - Family History Family Medical History: Noncontributory - Tobacco Use Smoking Status *Q: Never Smoker - Caffeine Use Caffeine Use: Reports: Coffee, Soda - Recreational Drug Use Recreational Drug Use: No ED ROS GENERAL - Review of Systems Review Of Systems: See Below Free Text/Narrative/Comment: General: No fever. Skin: No rash. Eyes: No vision problems. ENT: No sore throat. Neck: No neck stiffness. Respiratory: No shortness of breath. Cardiac: No chest pain. Gastrointestinal: Per HPI Urinary: No dysuria. Musculoskeletal: No myalgias/arthralgias. Neurologic: No headache. ED EXAM, GENERAL - Physical Exam Exam: See Below Free Text/Narrative:: General Appearance: No acute distress, appears comfortable Skin: No rash HEENT: Normocephalic/atraumatic, sclera anicteric, mucous membranes moist Neck: Normal range of motion Chest and Lungs: Bilateral breath sounds, clear to auscultation Cardiovascular: Regular rate and rhythm, no murmur Abdomen: Soft, left lower quadrant tenderness with some voluntary guarding, abdomen otherwise nontender Back: Normal Musculoskeletal: No edema or tenderness Neurologic: Awake, alert, no obvious deficits, moving all extremities Psychiatric: Appropriate, cooperative Course - Vital Signs Last Recorded V/S: Last Vital Signs Temp 97.6 F 08/11/19 19:00 Pulse 77 08/11/19 22:30 Resp 18 08/11/19 22:30 BP 110/70 08/11/19 22:30 Pulse Ox 98 08/11/19 22:30 - Orders/Labs/Meds Labs: Laboratory Tests 08/11/19 08/11/19 08/11/19 Range/Units 14:31 14:31 19:08 WBC 9.02 (4.0-11.0) K/uL RBC 4.36 (4.30-5.90) M/uL Hgb 12.7 (12.0-16.0) g/dL Hct 38.8 (36.0-46.0) % MCV 89.0 (80.0-98.0) fL MCH 29.1 (27.0-32.0) pg MCHC 32.7 (31.0-37.0) g/dL RDW Std Deviation 39.7 (28.0-62.0) fl RDW Coeff of Jamal 12 (11.0-15.0) % Plt Count 287 (150-400) K/uL MPV 8.90 (7.40-12.00) fL Neut % (Auto) 75.0 (48.0-80.0) % Lymph % (Auto) 16.5 (16.0-40.0) % Beaver % (Auto) 8.2 (0.0-15.0) % Eos % (Auto) 0.1 (0.0-7.0) % Baso % (Auto) 0.2 (0.0-1.5) % Neut # (Auto) 6.8 H (1.4-5.7) K/uL Lymph # (Auto) 1.5 (0.6-2.4) K/uL Beaver # (Auto) 0.7 (0.0-0.8) K/uL Eos # (Auto) 0.0 (0.0-0.7) K/uL Baso # (Auto) 0.0 (0.0-0.1) K/uL Nucleated RBC % 0.0 /100WBC Nucleated RBCs # 0 K/uL Sodium 138 (136-145) mmol/L Potassium 3.6 (3.5-5.1) mmol/L Chloride 102 (98-107) mmol/L Carbon Dioxide 28.1 (21.0-32.0) mmol/L BUN 6 L (7.0-18.0) mg/dL Creatinine 0.8 (0.6-1.0) mg/dL Est Cr Clr Drug Dosing 93.63 mL/min Estimated GFR (MDRD) > 60.0 ml/min Glucose 99 (74-106) mg/dL Calcium 8.9 (8.5-10.1) mg/dL Total Bilirubin 0.4 (0.2-1.0) mg/dL AST 22 (15-37) IU/L ALT 38 (14-63) IU/L Alkaline Phosphatase 96 (46-116) U/L Total Protein 7.7 (6.4-8.2) g/dL Albumin 4.1 (3.4-5.0) g/dL Globulin 3.6 (2.6-4.0) g/dL Albumin/Globulin Ratio 1.1 (0.9-1.6) Lipase 106 (73-393) U/L Urine Color YELLOW Urine Appearance CLEAR Urine pH 6.0 (5.0-8.0) Ur Specific [place] 1.010 (1.001-1.035) Urine Protein NEGATIVE (NEGATIVE) mg/dL Urine Glucose (UA) NEGATIVE (NEGATIVE) mg/dL Urine Ketones NEGATIVE (NEGATIVE) mg/dL Urine Occult Blood NEGATIVE (NEGATIVE) Urine Nitrite NEGATIVE (NEGATIVE) Urine Bilirubin NEGATIVE (NEGATIVE) Urine Urobilinogen 0.2 (<2.0) EU/dL Ur Leukocyte Esterase NEGATIVE (NEGATIVE) Urine RBC 0-1 (0-2/HPF) Urine WBC 0-1 (0-5/HPF) Ur Epithelial Cells RARE (NONE-FEW) Urine Bacteria RARE (NEGATIVE) Urine HCG, Qual (NEGATIVE) 08/11/19 Range/Units 19:08 WBC (4.0-11.0) K/uL RBC (4.30-5.90) M/uL Hgb (12.0-16.0) g/dL Hct (36.0-46.0) % MCV (80.0-98.0) fL MCH (27.0-32.0) pg MCHC (31.0-37.0) g/dL RDW Std Deviation (28.0-62.0) fl RDW Coeff of Jamal (11.0-15.0) % Plt Count (150-400) K/uL MPV (7.40-12.00) fL Neut % (Auto) (48.0-80.0) % Lymph % (Auto) (16.0-40.0) % Beaver % (Auto) (0.0-15.0) % Eos % (Auto) (0.0-7.0) % Baso % (Auto) (0.0-1.5) % Neut # (Auto) (1.4-5.7) K/uL Lymph # (Auto) (0.6-2.4) K/uL Beaver # (Auto) (0.0-0.8) K/uL Eos # (Auto) (0.0-0.7) K/uL Baso # (Auto) (0.0-0.1) K/uL Nucleated RBC % /100WBC Nucleated RBCs # K/uL Sodium (136-145) mmol/L Potassium (3.5-5.1) mmol/L Chloride (98-107) mmol/L Carbon Dioxide (21.0-32.0) mmol/L BUN (7.0-18.0) mg/dL Creatinine (0.6-1.0) mg/dL Est Cr Clr Drug Dosing mL/min Estimated GFR (MDRD) ml/min Glucose (74-106) mg/dL Calcium (8.5-10.1) mg/dL Total Bilirubin (0.2-1.0) mg/dL AST (15-37) IU/L ALT (14-63) IU/L Alkaline Phosphatase (46-116) U/L Total Protein (6.4-8.2) g/dL Albumin (3.4-5.0) g/dL Globulin (2.6-4.0) g/dL Albumin/Globulin Ratio (0.9-1.6) Lipase (73-393) U/L Urine Color Urine Appearance Urine pH (5.0-8.0) Ur Specific [place] (1.001-1.035) Urine Protein (NEGATIVE) mg/dL Urine Glucose (UA) (NEGATIVE) mg/dL Urine Ketones (NEGATIVE) mg/dL Urine Occult Blood (NEGATIVE) Urine Nitrite (NEGATIVE) Urine Bilirubin (NEGATIVE) Urine Urobilinogen (<2.0) EU/dL Ur Leukocyte Esterase (NEGATIVE) Urine RBC (0-2/HPF) Urine WBC (0-5/HPF) Ur Epithelial Cells (NONE-FEW) Urine Bacteria (NEGATIVE) Urine HCG, Qual NEGATIVE (NEGATIVE) Meds: Medications Discontinued Medications Generic Name Dose Route Start Last Admin Trade Name Freq PRN Reason Stop Dose Admin Iopamidol 100 ml 08/11/19 20:43 08/11/19 20:43 Isovue-370 (76%) IVPUSH 08/11/19 20:44 100 ml ONETIME ONE Administration Ketorolac Tromethamine 15 mg 08/11/19 21:56 08/11/19 22:03 Toradol IVPUSH 08/11/19 21:57 15 mg ONETIME ONE Administration Morphine Sulfate 4 mg 08/11/19 22:45 08/11/19 22:54 Morphine IVPUSH 08/11/19 22:46 4 mg ONETIME ONE Administration Ondansetron HCl 4 mg 08/11/19 22:45 08/11/19 22:53 Zofran IVPUSH 08/11/19 22:46 4 mg ONETIME ONE Administration Departure - Departure Time of Disposition: 23:10 Disposition: Home, Self-Care 01 Condition: Good Clinical Impression: LLQ abdominal pain - Discharge Information *PRESCRIPTION DRUG MONITORING PROGRAM REVIEWED*: Not Applicable *COPY OF PRESCRIPTION DRUG MONITORING REPORT IN PATIENT CLARICE: Not Applicable Instructions: Abdominal Pain, Adult, [id number] Forms: ED Department Discharge Additional Instructions: The following information is given to patients seen in the emergency department who are being discharged to home. This information is to outline your options for follow-up care. We provide all patients seen in our emergency department with a follow-up referral. The need for follow-up, as well as the timing and circumstances, are variable depending upon the specifics of your emergency department visit. If you don't have a primary care physician on staff, we will provide you with a referral. We always advise you to contact your personal physician following an emergency department visit to inform them of the circumstance of the visit and for follow-up with them and/or the need for any referrals to a consulting specialist. The emergency department will also refer you to a specialist when appropriate. This referral assures that you have the opportunity for follow-up care with a specialist. All of these measure are taken in an effort to provide you with optimal care, which includes your follow-up. Under all circumstances we always encourage you to contact your private physician who remains a resource for coordinating your care. When calling for follow-up care, please make the office aware that this follow-up is from your recent emergency room visit. If for any reason you are refused follow-up, please contact the [facility] Emergency Department at and ask to speak to the emergency department charge nurse. Your lab work today was normal and showed no signs of infection your chemistry tests were normal as well showing good renal function and liver function. The CT scan of your abdomen and pelvis did not show any obstructing kidney stones it showed no evidence for diverticulitis it showed no evidence for any masses associated with your uterus or your ovaries. A small ovarian cyst on your left ovary could explain your symptoms it would not necessarily have been seen on the CT scan. I recommend that for the next 4 days you take 600 mg (three 200mg over the counter tablets) of ibuprofen every 8 hours after breakfast after lunch and after dinner. This should not only help your pain but also should help with the inflammation that we think is the source of your pain. I hope and expect that your pain will start to improve over the next few days. However, if your pain worsens, you develop vomiting or fever, or any other new symptoms that concern you I urge you to call your doctor right away or return to the emergency department. If you do not have a primary care doctor you could follow-up with this internal medicine clinic. [facility] - Internal Medicine [address] [place] [id number] Sepsis Event Note (ED) - Evaluation Sepsis Screening Result: No Definite Risk - Focused Exam Vital Signs: Vital Signs Temp Pulse Resp BP Pulse Ox 08/11/19 22:30 77 18 110/70 98 08/11/19 20:54 94 18 128/82 97 08/11/19 19:00 97.6 F 99 18 120/78 98 - Assessment/Plan Plan: 34-year-old female presenting with left lower quadrant abdominal pain and tenderness would be most concerning for recurrent diverticulitis. Also consider ovarian pathology such as cyst. Much less likely ovarian torsion given the moderate nature of the pain. Gynecologic pathology considered but no vaginal bleeding or discharge. No findings that would suggest renal colic. Multiple other etiologies considered as well. CBC, CMP, CT abdomen pelvis patient claims pain medication at this time. Patient's labs are normal no leukocytosis chemistry normal urinalysis without infection test negative. CT scan is without any acute pathology no inflammation no significant adnexal mass that would raise the possibility of torsion. And again given the moderate nature of the pain over days I do not have a high clinical concern for ovarian torsion. Patient is without history of frequent STIs or reasons to suspect missed TOA and again patient's white blood cell count is normal. Inflammation from a small ovarian cyst is certainly possible. However, the pelvic ultrasound may find this more definitively it would not change the management which would be anti-inflammatories. Right now patient's pain remains moderate at 5 out of 10 we will give a dose of Toradol and reassess. Given the negative work-up here plan would be for scheduled anti- inflammatories over the next 4 to 5 days and then reassessment through her primary care provider. 2245: 30min s/p Toradol pt's sx improved but still persist. Will provide a single dose of morphine and zofran to help with sx overnight. Recommended 600mg ibuprofen TID with food for 4 days for additional anti-inflammatory tx. Strict return precautions discussed and understood.
[2019-08-11 20:03] LABS: BLOOD UREA NITROGEN,BUN 6 mg/dL (7.0-18.0); CARBON DIOXIDE,CO2 28.1 mmol/L (21.0-32.0); CHLORIDE,CL 102 mmol/L (98-107); GLUCOSE RANDOM 99 mg/dL (74-106); LIPASE 106 U/L (73-393); POTASSIUM,K 3.6 mmol/L (3.5-5.1); SODIUM,NA 138 mmol/L (136-145)
[2019-08-11] MEDS ORDERED: Iopamidol 755 Mg/ML 100 ML Bottle IVPUSH ONE (20:43)
--- NOTE | 2019-08-11 21:48 | CT ---
CT abdomen and pelvis Technique: Multiple axial sections were obtained from above the dome of the diaphragm inferiorly through the pubic symphysis. Intravenous contrast was utilized. No oral contrast has been given. Comparison: Prior CT abdomen and pelvis study of 07/15/19. Findings: Bilateral breast prosthesis are noted. Visualized lung bases show nothing acute. Liver contains no focal abnormality. Spleen appears within normal limits. Adrenal glands show no nodule. Kidneys show symmetric contrast enhancement without hydronephrosis or mass. Previous study showed several nonobstructing calculi within the left kidney which cannot be visualized on current study due to differences in the contrast enhancement. Pancreas shows no discrete abnormality. Gallbladder contains no calcified gallstones. Aorta shows no aneurysm. No retroperitoneal adenopathy or mesenteric abnormalities are seen. No pelvic mass or adenopathy is identified. Minimal diverticulosis is seen within portions of the descending and sigmoid regions without inflammatory change of diverticulitis. Appendix is not definitely visualized. Bone window settings were reviewed which appear within normal limits for the patient's age. No acute osseous finding is seen. Impression: 1. Normal findings as noted above. 2. Nothing acute is appreciated on CT study of the abdomen and pelvis. No etiology is identified for the patient's left lower quadrant pain. Diagnostic code #2 Study was dictated in MDT
[2019-08-11] MEDS ORDERED: Ketorolac 30 MG/ML SDV IVPUSH ONE (21:56)
[2019-08-11] MEDS ORDERED: Ondansetron 4 MG/2 ML SDV IVPUSH ONE (22:45)
[2019-08-11] MEDS ORDERED: Morphine 4 MG/ML Syringe IVPUSH ONE (22:45)
[2019-08-11 23:15] VITALS: BP 112/78; PULSE 82
== END 2019-08-11 23:15 | disposition home or self-care (01) ==
LOC: MW.ED 18:34
DX: R10.32 Left lower quadrant pain (principal); Z79.899 Other long term (current) drug therapy
CPT/HCPCS: 36415; 74177; 80053; 81001; 81025; 83690; 85025; 96374; 96375; 99284; J1885; J2270; J2405; Q9967; 99283

== ENCOUNTER 2020-10-02 14:05 | Emergency (ER) | payer BC ==
--- NOTE | 2020-10-02 14:10 | EDM.PDOC ---
ED HPI GENERAL MEDICAL PROBLEM - General Stated Complaint: PAIN IN STOMACH SINCE YESTERDAY Time Seen by Provider: 10/02/20 14:08 - History of Present Illness INITIAL COMMENTS - FREE TEXT/NARRATIVE: History of present illness: [] Patient has pain in the right anterior costal margin and in the right upper quadrant which is constant since yesterday evening and fairly severe. He gets a little worse and she gets nauseated when she eats. She has not had this pain before but had similar pain in the left side when she had diverticulitis. She has multiple GI issues in the past with recent colonoscopy. The patient has a tubal ligation and recently had a menstrual period Review of systems: As per history of present illness and below otherwise all systems reviewed and negative. Past medical history: As per history of present illness and as reviewed below otherwise noncontributory. Surgical history: As per history of present illness and as reviewed below otherwise noncontributory. Social history: No reported history of drug or alcohol abuse. Family history: As per history of present illness and as reviewed below otherwise noncontributory. Physical exam: Constitutional - well developed, well-nourished and in no acute distress HEENT - normocephalic, no evidence of trauma - external nose and mouth normal - no mass in neck and no JVD - mucosae moist EYES - full EOM, PERRL, no icterus - no evidence of inflammation, injection, or drainage Respiratory - no respiratory distress, equal bilateral expansion, lungs clear to auscultation and no abnormal lung sounds Cardiovascular - Regular Rhythm with S1 and S2 appreciated and no murmur, gallop or rub. GI - abdomen soft without distension or organomegaly -tender in the right upper quadrant-normal bowel sounds - no guard or rebound Musculoskeletal no gross deformity of long bones or joints - no tenderness, swelling or edema Neurologic - Alert and oriented times four - CN II-XII grossly intact - motor sensory and coordination symmetrically normal Psychiatric - appropriate mood and affect with normal thought content Hematologic - No petechiae or purpura - mucosa appropriate color and sclera not pale - normal nail bed color and refill Integument - no rash or evidence of trauma - normal turgor Diagnostics: [] Therapeutics: [] Impression: [] Plan: [] Definitive disposition and diagnosis as appropriate pending reevaluation and review of above. 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: Musculoskeletal History: Reports: Back Pain, Chronic, Fibromyalgia, Neck Pain, Chronic Neurological History: Reports: Migraines Psychiatric History: Reports: Anxiety Endocrine/Metabolic History: Reports: None Insulin Pump Model and Music Intern: None Hematologic History: Reports: None Immunologic History: Reports: None Oncologic (Cancer) History: Reports: None Dermatologic History: Reports: None - Infectious Disease History Infectious Disease History: Reports: None - Past Surgical History Head Surgeries/Procedures: Reports: None HEENT Surgical History: Reports: Oral Surgery Other HEENT Surgeries/Procedures: wisdom teeth extraction, dental implants Cardiovascular Surgical History: Reports: None Respiratory Surgical History: Reports: None GI Surgical History: Reports: None Female Surgical History: Reports: Breast Biopsy, Breast Implant, Section, Tubal Ligation Endocrine Surgical History: Reports: None Neurological Surgical History: Reports: None Musculoskeletal Surgical History: Reports: None Oncologic Surgical History: Reports: Biopsy of Breast Dermatological Surgical History: Reports: None Social & Family History - Family History Family Medical History: No Pertinent Family History - Caffeine Use Caffeine Use: Reports: Coffee, Soda ED ROS GENERAL - Review of Systems Review Of Systems: Comprehensive ROS is negative, except as noted in HPI. ED EXAM, GENERAL - Physical Exam Exam: See Below Free Text/Narrative:: Physical exam is in the HPI Course - Vital Signs Text/Narrative:: 1717 hrs. the patient did really feel much better. Labs and ultrasound were normal. Patient has loose stool since her colonoscopy. Plan Bentyl and follow- up with PMD. Last Recorded V/S: Last Vital Signs Temp 37.4 C 10/02/20 14:15 Pulse 106 H 10/02/20 14:15 Resp 18 10/02/20 14:15 BP 134/91 H 10/02/20 14:15 Pulse Ox 96 10/02/20 14:15 - Orders/Labs/Meds Orders: Active Orders 24 hr Category Date Time Status Sodium Chloride 0.9% [Saline Flush] Med 10/02/20 14:45 Active 10 ml FLUSH ASDIRECTED PRN Sodium Chloride 0.9% [Saline Flush] Med 10/02/20 14:45 Active 2.5 ml FLUSH ASDIRECTED PRN Saline Lock Insert [OM.PC] Stat Oth 10/02/20 14:45 Ordered Medication Orders Sodium Chloride (Sodium Chloride 0.9% 10 Ml Syringe) 10 ml FLUSH ASDIRECTED PRN PRN Reason: Keep Vein Open Last Admin: 10/02/20 15:11 Dose: 10 ml Documented by: EDDIE Sodium Chloride (Sodium Chloride 0.9% 2.5 Ml Syringe) 2.5 ml FLUSH ASDIRECTED PRN PRN Reason: Keep Vein Open Last Admin: 10/02/20 15:11 Dose: 2.5 ml Documented by: EDDIE Labs: Laboratory Tests 10/02/20 10/02/20 10/02/20 Range/Units 14:30 14:30 14:32 WBC 7.11 (4.0-11.0) K/uL RBC 4.47 (4.30-5.90) M/uL Hgb 13.4 (12.0-16.0) g/dL Hct 39.2 (36.0-46.0) % MCV 87.7 (80.0-98.0) fL MCH 30.0 (27.0-32.0) pg MCHC 34.2 (31.0-37.0) g/dL RDW Std Deviation 40.5 (28.0-62.0) fl RDW Coeff of Jamal 13 (11.0-15.0) % Plt Count 329 (150-400) K/uL MPV 9.30 (7.40-12.00) fL Neut % (Auto) 69.1 (48.0-80.0) % Lymph % (Auto) 21.1 (16.0-40.0) % Mcintosh % (Auto) 9.4 (0.0-15.0) % Eos % (Auto) 0.1 (0.0-7.0) % Baso % (Auto) 0.3 (0.0-1.5) % Neut # (Auto) 4.9 (1.4-5.7) K/uL Lymph # (Auto) 1.5 (0.6-2.4) K/uL Mcintosh # (Auto) 0.7 (0.0-0.8) K/uL Eos # (Auto) 0.0 (0.0-0.7) K/uL Baso # (Auto) 0.0 (0.0-0.1) K/uL Nucleated RBC % 0.0 /100WBC Nucleated RBCs # 0 K/uL Sodium 138 (136-145) mmol/L Potassium 4.0 (3.5-5.1) mmol/L Chloride 103 (98-107) mmol/L Carbon Dioxide 27.1 (21.0-32.0) mmol/L BUN 7 (7.0-18.0) mg/dL Creatinine 1.1 H (0.6-1.0) mg/dL Est Cr Clr Drug Dosing 67.46 mL/min Estimated GFR (MDRD) 56.9 ml/min Glucose 118 H (74-106) mg/dL Calcium 8.9 (8.5-10.1) mg/dL Total Bilirubin 0.3 (0.2-1.0) mg/dL AST 18 (15-37) IU/L ALT 24 (14-63) IU/L Alkaline Phosphatase 116 (46-116) U/L Total Protein 7.6 (6.4-8.2) g/dL Albumin 4.0 (3.4-5.0) g/dL Globulin 3.6 (2.6-4.0) g/dL Albumin/Globulin Ratio 1.1 (0.9-1.6) Lipase 120 (73-393) U/L Urine Color YELLOW Urine Appearance CLEAR Urine pH 7.0 (5.0-8.0) Ur Specific [place] 1.020 (1.001-1.035) Urine Protein NEGATIVE (NEGATIVE) mg/dL Urine Glucose (UA) NEGATIVE (NEGATIVE) mg/dL Urine Ketones NEGATIVE (NEGATIVE) mg/dL Urine Occult Blood TRACE-INTACT H (NEGATIVE) Urine Nitrite NEGATIVE (NEGATIVE) Urine Bilirubin NEGATIVE (NEGATIVE) Urine Urobilinogen 0.2 (<2.0) EU/dL Ur Leukocyte Esterase NEGATIVE (NEGATIVE) Urine RBC 0-1 (0-2/HPF) Urine WBC 0-1 (0-5/HPF) Ur Epithelial Cells RARE (NONE-FEW) Urine Bacteria NOT SEEN (NEGATIVE) Urine HCG, Qual (NEGATIVE) 10/02/20 Range/Units 14:32 WBC (4.0-11.0) K/uL RBC (4.30-5.90) M/uL Hgb (12.0-16.0) g/dL Hct (36.0-46.0) % MCV (80.0-98.0) fL MCH (27.0-32.0) pg MCHC (31.0-37.0) g/dL RDW Std Deviation (28.0-62.0) fl RDW Coeff of Jamal (11.0-15.0) % Plt Count (150-400) K/uL MPV (7.40-12.00) fL Neut % (Auto) (48.0-80.0) % Lymph % (Auto) (16.0-40.0) % Mcintosh % (Auto) (0.0-15.0) % Eos % (Auto) (0.0-7.0) % Baso % (Auto) (0.0-1.5) % Neut # (Auto) (1.4-5.7) K/uL Lymph # (Auto) (0.6-2.4) K/uL Mcintosh # (Auto) (0.0-0.8) K/uL Eos # (Auto) (0.0-0.7) K/uL Baso # (Auto) (0.0-0.1) K/uL Nucleated RBC % /100WBC Nucleated RBCs # K/uL Sodium (136-145) mmol/L Potassium (3.5-5.1) mmol/L Chloride (98-107) mmol/L Carbon Dioxide (21.0-32.0) mmol/L BUN (7.0-18.0) mg/dL Creatinine (0.6-1.0) mg/dL Est Cr Clr Drug Dosing mL/min Estimated GFR (MDRD) ml/min Glucose (74-106) mg/dL Calcium (8.5-10.1) mg/dL Total Bilirubin (0.2-1.0) mg/dL AST (15-37) IU/L ALT (14-63) IU/L Alkaline Phosphatase (46-116) U/L Total Protein (6.4-8.2) g/dL Albumin (3.4-5.0) g/dL Globulin (2.6-4.0) g/dL Albumin/Globulin Ratio (0.9-1.6) Lipase (73-393) U/L Urine Color Urine Appearance Urine pH (5.0-8.0) Ur Specific Montrose (1.001-1.035) Urine Protein (NEGATIVE) mg/dL Urine Glucose (UA) (NEGATIVE) mg/dL Urine Ketones (NEGATIVE) mg/dL Urine Occult Blood (NEGATIVE) Urine Nitrite (NEGATIVE) Urine Bilirubin (NEGATIVE) Urine Urobilinogen (<2.0) EU/dL Ur Leukocyte Esterase (NEGATIVE) Urine RBC (0-2/HPF) Urine WBC (0-5/HPF) Ur Epithelial Cells (NONE-FEW) Urine Bacteria (NEGATIVE) Urine HCG, Qual NEGATIVE (NEGATIVE) Meds: Medications Generic Name Dose Route Start Last Admin Trade Name Freq PRN Reason Stop Dose Admin Sodium Chloride 10 ml 10/02/20 14:45 10/02/20 15:11 Sodium Chloride 0.9% 10 Ml Syringe FLUSH 10 ml ASDIRECTED PRN Administration Keep Vein Open Sodium Chloride 2.5 ml 10/02/20 14:45 10/02/20 15:11 Sodium Chloride 0.9% 2.5 Ml Syringe FLUSH 2.5 ml ASDIRECTED PRN Administration Keep Vein Open Discontinued Medications Generic Name Dose Route Start Last Admin Trade Name Freq PRN Reason Stop Dose Admin Sodium Chloride 1,000 mls @ 500 mls/hr 10/02/20 14:46 10/02/20 15:11 Normal Saline IV 10/02/20 16:45 500 mls/hr .Bolus ONE Administration Ondansetron HCl 4 mg 10/02/20 15:07 10/02/20 15:11 Ondansetron 4 Mg/2 Ml Sdv IVPUSH 10/02/20 15:08 4 mg ONETIME ONE Administration Departure - Departure Time of Disposition: 17:17 Disposition: Home, Self-Care 01 Condition: Good Clinical Impression: Abdominal pain, Diarrhea - Discharge Information Prescriptions: Dicyclomine [Bentyl] 20 mg PO QID PRN #20 tab PRN Reason: Abdominal Pain Instructions: Abdominal Pain, Adult, [id number] Referrals: PCP,None [Primary Care Provider] - Additional Instructions: [facility] - [facility] [address] [place] [address] [facility] [address] [place] [id number] The following information is given to patients seen in the emergency department who are being discharged to home. This information is to outline your options for follow-up care. We provide all patients seen in our emergency department with a follow-up referral. The need for follow-up, as well as the timing and circumstances, are variable depending upon the specifics of your emergency department visit. If you don't have a primary care physician on staff, we will provide you with a referral. We always advise you to contact your personal physician following an emergency department visit to inform them of the circumstance of the visit and for follow-up with them and/or the need for any referrals to a consulting specialist. The emergency department will also refer you to a specialist when appropriate. This referral assures that you have the opportunity for follow-up care with a specialist. All of these measure are taken in an effort to provide you with optimal care, which includes your follow-up. Under all circumstances we always encourage you to contact your private p hysician who remains a resource for coordinating your care. When calling for follow-up care, please make the office aware that this follow-up is from your recent emergency room visit. If for any reason you are refused follow-up, please contact the [facility] Emergency Department at and asked to speak to the emergency department charge nurse. Sepsis Event Note (ED) - Focused Exam Vital Signs: Vital Signs Temp Pulse Resp BP Pulse Ox 10/02/20 14:15 37.4 C 106 H 18 134/91 H 96 - My Orders Last 24 Hours: My Active Orders 10/02/20 14:45 Sodium Chloride 0.9% [Saline Flush] 10 ml FLUSH ASDIRECTED PRN Sodium Chloride 0.9% [Saline Flush] 2.5 ml FLUSH ASDIRECTED PRN Saline Lock Insert [OM.PC] Stat - Assessment/Plan Last 24 Hours: My Active Orders 10/02/20 14:45 Sodium Chloride 0.9% [Saline Flush] 10 ml FLUSH ASDIRECTED PRN Sodium Chloride 0.9% [Saline Flush] 2.5 ml FLUSH ASDIRECTED PRN Saline Lock Insert [OM.PC] Stat
[2020-10-02] MEDS ORDERED: Sodium Chloride 0.9% 10 ML Syringe FLUSH PRN (14:45)
[2020-10-02] MEDS ORDERED: Sodium Chloride 0.9% 2.5 ML Syringe FLUSH PRN (14:45)
[2020-10-02] MEDS ORDERED: Sodium Chloride 0.9% 1,000 ML IV ONE (14:46)
[2020-10-02] MEDS ORDERED: Ondansetron 4 MG/2 ML SDV IVPUSH ONE (15:07)
[2020-10-02 15:16] LABS: CARBON DIOXIDE,CO2 27.1 mmol/L (21.0-32.0)
--- NOTE | 2020-10-02 16:41 | US ---
INDICATION: Right upper quadrant pain TECHNIQUE: Ultrasound abdomen limited. Sonographic images of the right upper quadrant were obtained using adame-scale and color Doppler images. COMPARISON: None FINDINGS: Liver: The liver parenchyma is normal in echotexture. Gallbladder: No gallstones or sludge seen in the contracted lumen. No definite gallstones or sludge are seen. The gallbladder wall is normal in appearance. No pericholecystic fluid is present. A sonographic Rico sign was reported and of uncertain etiology. Common bile duct: 5 mm. No intrahepatic biliary ductal dilatation seen. Pancreas: The visualized portions of the pancreatic head and body are normal in appearance. Right Kidney: 11.6 cm. No hydronephrosis or ureterectasis is seen. Vascular: The visualized abdominal aorta and IVC are unremarkable. The visualized portal vein is patent with normal anterograde flow. IMPRESSION: 1. The right upper quadrant is unremarkable in appearance. Dictated by Bret Mark MD @ 10/02/2020 4:40:06 PM Dictated by: Bret Mark MD @ 10/02/2020 16:40:11 (Electronically Signed)
[2020-10-02 17:30] VITALS: BP 109/62; PULSE 80
== END 2020-10-02 17:34 | disposition home or self-care (01) ==
LOC: MW.ED 14:05
DX: R10.11 Right upper quadrant pain (principal); R10.31 Right lower quadrant pain; R19.7 Diarrhea, unspecified
CPT/HCPCS: 36415; 76705; 80053; 81001; 81025; 83690; 85025; 96374; 99284; J2405; J7030

== ENCOUNTER 2021-01-15 09:46 | Emergency (ER) | payer BC ==
[2021-01-15] MEDS ORDERED: Sodium Chloride 0.9% 1,000 ML IV ONE (10:12)
[2021-01-15] MEDS ORDERED: HYDROmorphone 1 MG/ML Syringe IVPUSH ONE (10:12)
[2021-01-15] MEDS ORDERED: Ondansetron 4 MG/2 ML SDV IVPUSH ONE (10:12)
[2021-01-15] MEDS ORDERED: Ketorolac 30 MG/ML SDV IVPUSH ONE (10:15)
--- NOTE | 2021-01-15 10:18 | EDM.PDOC ---
ED HPI GENERAL MEDICAL PROBLEM - General Chief Complaint: Abdominal Pain Stated Complaint: ABDOMINAL AND BACK PAIN Time Seen by Provider: 01/15/21 09:52 Source of Information: Reports: Patient History Limitations: Reports: No Limitations - History of Present Illness INITIAL COMMENTS - FREE TEXT/NARRATIVE: HISTORY AND PHYSICAL: History of present illness: Patient is a 35 year old female with a history of prior kidney stones, diverticulitis s/p bowel resection, who presents to the ED today with LLQ abdominal pain. Patient states that she has also been having diarrhea since the onset of her symptoms and states that she first started feeling it on Thursday with and states today, the pain suddenly hit. Patient states she is having a hard time differentiating possible kidney stone versus her diverticulitis pain due to the diarrhea. Patient states that she has been able to eat and drink up until a few hours prior to arrival to the emergency room. Patient states that she has been screening her urine and has not seen a stone pass. Patient denies any trauma or injury and states that she has not taken anything for her symptoms. Patient denies fever, chills, chest pain, shortness of breath, or cough. Denies headache, neck stiff ness, change in vision, syncope, or near syncope. Denies nausea, vomiting, diarrhea, constipation, or dysuria. Has not noted any blood in urine or stool. Patient has been eating and drinking appropriately. Review of systems: As per history of present illness and below otherwise all systems reviewed and negative. Past medical history: As per history of present illness and as reviewed below otherwise noncontributory. Surgical history: As per history of present illness and as reviewed below otherwise noncontributory. Social history: See social history for further information Family history: As per history of present illness and as reviewed below otherwise noncontributory. Physical exam: General: Patient is alert, oriented, and in no acute distress. Patient laying on exam table appearing significantly uncomfortable holding left lower abdomen. Tachycardic 120s on exam, otherwise vitals stable and reviewed by me. HEENT: Atraumatic, normocephalic, pupils equal and reactive bilaterally, negative for conjunctival pallor or scleral icterus, mucous membranes moist, throat clear, neck supple, nontender, trachea midline. No drooling or trismus noted. No meningeal signs. No hot potato voice noted. Lungs: Clear to auscultation, breath sounds equal bilaterally, chest nontender. Heart: S1S2, regular rate and rhythm without overt murmur Abdomen: Soft, nondistended, moderate LLQ tenderness without guarding, negative londono/rebound. Negative for masses or hepatosplenomegaly. Negative for costovertebral tenderness. Pelvis: Stable nontender. Genitourinary: Deferred. Rectal: Deferred. Skin: Intact, warm, dry. No lesions or rashes noted. Extremities: Atraumatic, negative for cords or calf pain. Neurovascular unremarkable. Neuro: Awake, alert, oriented. Cranial nerves II through XII unremarkable. Cerebellum unremarkable. Motor and sensory unremarkable throughout. Exam nonfocal. Medical Decision Making: Patient is a 35-year-old female with a history of prior ureterolithiasis, and prior diverticulitis status post colectomy, who presents emergency room today with concern of left lower quadrant abdominal pain off and on for the past 5 days that became constant over the past several hours. Upon arrival to the ED, patient is significantly uncomfortable holding her left lower abdomen and rocking back and forth on exam table. Exam is limited at this time. Will first obtain some proper pain control and then reassess patient. Following therapeutics, patient is much more comfortable and reexamination does show moderate left lower quadrant tenderness to palpation. Basic lab work obtained, also plan to scan patient's abdomen. CBC mild derangements unremarkable. CMP does show mild hyperglycemia at 165, otherwise mild derangements unremarkable. hcg negative. Lipase WNL. UA does show 20-30RBC with neg nitrite/leuk esterase, and 1-3 WBC. Abd/Pelvic ct w and w/o cont shows somewhat patulous appearing left renal pelvis which may represent recent passage of a renal calculus versus extrarenal pelvis. No obvious obstructive distal calculus or hydronephrosis seen. Somewhat decompressed appearing distal colon with minimal residual colonic diverticulosis status post surgical resection and primary anastomosis appreciated of the rectosigmoid junction. There is no overt pericolonic inflammation to suggest diverticulitis, however, low grade inflammatory changes may not be difficult to exclude. Due to possible/undetermined possible low grade inflammatory changes of the bowel on CT, will place on antibiotics with close follow up with her PCP. I do feel that with patient's clinical presentation, and CT suggestive of recently passed stone on the left, I do feel that she did have a ureterolithiasis that is now passed. She also remains much more comfortable throughout stay in ED. Upon reevaluation of patient, she remains now comfortable and vitally stable throughout stay in ED. Strict return precautions thoroughly discussed with patient. Voices understanding and is agreeable to plan of care. Denies any further questions or concerns at this time. Diagnostics: CBC, CMP, UA, Serum hcg, Lipase, Abd/pelvic ct w and w/o cont Therapeutics: NS, Dilaudid, Zofran, Toradol Prescription: Augmentin Impression: Ureterolithiasis, left, past Low-grade inflammatory changes, intraabdominal, unspecified Plan: 1. Take medication as prescribed. [facility] medication [facility]. You can alternate ibuprofen and Tylenol as directed for pain and discomfort. 2. Follow-up with primary care provider as discussed. Return to the ED as needed and as discussed. Definitive disposition and diagnosis as appropriate pending reevaluation and review of above. Left Abdomen Pain Score (Numeric/FACES): 10 - Related Data Allergies Allergy/AdvReac Type Severity Reaction Status Date / Time No Known Allergies Allergy Verified 10/02/20 14:21 Home Meds: Home Meds Amoxicillin/Potassium Clav [Augmentin 875-125 Tablet] 1 each PO BID 10 Days #20 tablet 01/15/21 [Rx] Past Medical History HEENT History: Reports: Other (See Below) Other HEENT History: wears glasses/contacts Cardiovascular History: Reports: None Respiratory History: Reports: None Gastrointestinal History: Reports: Other (See Below) Other Gastrointestinal History: diverticulitis, large intestine removal 2019 Genitourinary History: Reports: Renal Calculus Other Genitourinary History: last seen for doctor concerning kidney stones in 2019 MANAGER EDUCATION History: Reports: Musculoskeletal History: Reports: Back Pain, Chronic, Fibromyalgia, Neck Pain, Chronic Neurological History: Reports: Migraines Psychiatric History: Reports: Anxiety Endocrine/Metabolic History: Reports: None Insulin Pump Model and Bag Builder: None Hematologic History: Reports: None Immunologic History: Reports: None Oncologic (Cancer) History: Reports: None Dermatologic History: Reports: None - Infectious Disease History Infectious Disease History: Reports: Chicken Pox - Past Surgical History Head Surgeries/Procedures: Reports: None HEENT Surgical History: Reports: Oral Surgery Other HEENT Surgeries/Procedures: wisdom teeth extraction, dental implants Cardiovascular Surgical History: Reports: None Respiratory Surgical History: Reports: None GI Surgical History: Reports: None Female Surgical History: Reports: Breast Biopsy, Breast Implant, Section, Tubal Ligation Endocrine Surgical History: Reports: None Neurological Surgical History: Reports: None Musculoskeletal Surgical History: Reports: None Oncologic Surgical History: Reports: Biopsy of Breast Dermatological Surgical History: Reports: None Social & Family History - Family History Family Medical History: No Pertinent Family History - Caffeine Use Caffeine Use: Reports: None - Recreational Drug Use Recreational Drug Use: No ED ROS GENERAL - Review of Systems Review Of Systems: Comprehensive ROS is negative, except as noted in HPI. ED EXAM, GENERAL - Physical Exam Exam: See Below (see dictation) Course - Vital Signs Last Recorded V/S: Last Vital Signs Temp 9 F L 01/15/21 12:09 Pulse 86 01/15/21 12:09 Resp 14 01/15/21 12:09 BP 109/61 01/15/21 12:09 Pulse Ox 99 01/15/21 12:09 - Orders/Labs/Meds Labs: Laboratory Tests 01/15/21 01/15/21 01/15/21 Range/Units 10:05 10:05 10:05 WBC 4.63 (4.0-11.0) K/uL RBC 4.31 (4.30-5.90) M/uL Hgb 12.8 (12.0-16.0) g/dL Hct 37.7 (36.0-46.0) % MCV 87.5 (80.0-98.0) fL MCH 29.7 (27.0-32.0) pg MCHC 34.0 (31.0-37.0) g/dL RDW Std Deviation 40.9 (28.0-62.0) fl RDW Coeff of Jamal 13 (11.0-15.0) % Plt Count 315 (150-400) K/uL MPV 9.20 (7.40-12.00) fL Neut % (Auto) 47.1 L (48.0-80.0) % Lymph % (Auto) 43.2 H (16.0-40.0) % Sunflower % (Auto) 8.9 (0.0-15.0) % Eos % (Auto) 0.4 (0.0-7.0) % Baso % (Auto) 0.4 (0.0-1.5) % Neut # (Auto) 2.2 (1.4-5.7) K/uL Lymph # (Auto) 2.0 (0.6-2.4) K/uL Sunflower # (Auto) 0.4 (0.0-0.8) K/uL Eos # (Auto) 0.0 (0.0-0.7) K/uL Baso # (Auto) 0.0 (0.0-0.1) K/uL Nucleated RBC % 0.0 /100WBC Nucleated RBCs # 0 K/uL Sodium 141 (136-145) mmol/L Potassium 3.5 (3.5-5.1) mmol/L Chloride 105 (98-107) mmol/L Carbon Dioxide 22.3 (21.0-32.0) mmol/L BUN 8 (7.0-18.0) mg/dL Creatinine 0.9 (0.6-1.0) mg/dL Est Cr Clr Drug Dosing 82.45 mL/min Estimated GFR (MDRD) > 60.0 ml/min Glucose 165 H (74-106) mg/dL Calcium 8.7 (8.5-10.1) mg/dL Total Bilirubin 0.4 (0.2-1.0) mg/dL AST 8 L (15-37) IU/L ALT 18 (14-63) IU/L Alkaline Phosphatase 97 (46-116) U/L Total Protein 7.9 (6.4-8.2) g/dL Albumin 3.8 (3.4-5.0) g/dL Globulin 4.1 H (2.6-4.0) g/dL Albumin/Globulin Ratio 0.9 (0.9-1.6) Lipase 82 (73-393) U/L HCG, Qual NEGATIVE (NEG) Urine Color Urine Appearance Urine pH (5.0-8.0) Ur Specific Chandler (1.001-1.035) Urine Protein (NEGATIVE) mg/dL Urine Glucose (UA) (NEGATIVE) mg/dL Urine Ketones (NEGATIVE) mg/dL Urine Occult Blood (NEGATIVE) Urine Nitrite (NEGATIVE) Urine Bilirubin (NEGATIVE) Urine Urobilinogen (<2.0) EU/dL Ur Leukocyte Esterase (NEGATIVE) Urine RBC (0-2/HPF) Urine WBC (0-5/HPF) Ur Epithelial Cells (NONE-FEW) Calcium Oxalate Crystal (NEGATIVE) Urine Bacteria (NEGATIVE) Urine Mucus (NONE-MOD) Urinalysis Comment 01/15/21 Range/Units 10:52 WBC (4.0-11.0) K/uL RBC (4.30-5.90) M/uL Hgb (12.0-16.0) g/dL Hct (36.0-46.0) % MCV (80.0-98.0) fL MCH (27.0-32.0) pg MCHC (31.0-37.0) g/dL RDW Std Deviation (28.0-62.0) fl RDW Coeff of Jamal (11.0-15.0) % Plt Count (150-400) K/uL MPV (7.40-12.00) fL Neut % (Auto) (48.0-80.0) % Lymph % (Auto) (16.0-40.0) % Sunflower % (Auto) (0.0-15.0) % Eos % (Auto) (0.0-7.0) % Baso % (Auto) (0.0-1.5) % Neut # (Auto) (1.4-5.7) K/uL Lymph # (Auto) (0.6-2.4) K/uL Sunflower # (Auto) (0.0-0.8) K/uL Eos # (Auto) (0.0-0.7) K/uL Baso # (Auto) (0.0-0.1) K/uL Nucleated RBC % /100WBC Nucleated RBCs # K/uL Sodium (136-145) mmol/L Potassium (3.5-5.1) mmol/L Chloride (98-107) mmol/L Carbon Dioxide (21.0-32.0) mmol/L BUN (7.0-18.0) mg/dL Creatinine (0.6-1.0) mg/dL Est Cr Clr Drug Dosing mL/min Estimated GFR (MDRD) ml/min Glucose (74-106) mg/dL Calcium (8.5-10.1) mg/dL Total Bilirubin (0.2-1.0) mg/dL AST (15-37) IU/L ALT (14-63) IU/L Alkaline Phosphatase (46-116) U/L Total Protein (6.4-8.2) g/dL Albumin (3.4-5.0) g/dL Globulin (2.6-4.0) g/dL Albumin/Globulin Ratio (0.9-1.6) Lipase (73-393) U/L HCG, Qual (NEG) Urine Color YELLOW Urine Appearance SLT CLOUDY Urine pH 6.0 (5.0-8.0) Ur Specific Chandler 1.025 (1.001-1.035) Urine Protein NEGATIVE (NEGATIVE) mg/dL Urine Glucose (UA) NEGATIVE (NEGATIVE) mg/dL Urine Ketones NEGATIVE (NEGATIVE) mg/dL Urine Occult Blood LARGE H (NEGATIVE) Urine Nitrite NEGATIVE (NEGATIVE) Urine Bilirubin NEGATIVE (NEGATIVE) Urine Urobilinogen 0.2 (<2.0) EU/dL Ur Leukocyte Esterase NEGATIVE (NEGATIVE) Urine RBC 20-30 (0-2/HPF) Urine WBC 1-3 (0-5/HPF) Ur Epithelial Cells FEW (NONE-FEW) Calcium Oxalate Crystal RARE (NEGATIVE) Urine Bacteria FEW (NEGATIVE) Urine Mucus MANY (NONE-MOD) Urinalysis Comment Meds: Medications Discontinued Medications Generic Name Dose Route Start Last Admin Trade Name Freq PRN Reason Stop Dose Admin Hydromorphone HCl 1 mg 01/15/21 10:12 01/15/21 10:26 Hydromorphone 1 Mg/Ml Syringe IVPUSH 01/15/21 10:13 1 mg ONETIME ONE Administration Sodium Chloride 1,000 mls @ 999 mls/hr 01/15/21 10:12 01/15/21 10:25 Normal Saline IV 01/15/21 11:12 999 mls/hr STAT ONE Administration Iopamidol 100 ml 01/15/21 12:00 01/15/21 12:01 Iopamidol 755 Mg/Ml 500 Ml Multipack Bottle IVPUSH 01/15/21 12:01 100 ml ONETIME STA Administration Ketorolac Tromethamine 30 mg 01/15/21 10:15 01/15/21 10:27 Ketorolac 30 Mg/Ml Sdv IVPUSH 01/15/21 10:16 30 mg ONETIME ONE Administration Ondansetron HCl 4 mg 01/15/21 10:12 01/15/21 10:26 Ondansetron 4 Mg/2 Ml Sdv IVPUSH 01/15/21 10:13 4 mg ONETIME ONE Administration Departure - Departure Time of Disposition: 12:46 Disposition: Home, Self-Care 01 Clinical Impression: Ureterolithiasis - Discharge Information Prescriptions: Amoxicillin/Potassium Clav [Augmentin 875-125 Tablet] 1 each PO BID 10 Days #20 tablet Referrals: Bri Lucas [Primary Care Provider] - Forms: ED Department Discharge Additional Instructions: The following information is given to patients seen in the emergency department who are being discharged to home. This information is to outline your options for follow-up care. We provide all patients seen in our emergency department with a follow-up referral. The need for follow-up, as well as the timing and circumstances, are variable depending upon the specifics of your emergency department visit. If you don't have a primary care physician on staff, we will provide you with a referral. We always advise you to contact your personal physician following an emergency department visit to inform them of the circumstance of the visit and for follow-up with them and/or the need for any referrals to a consulting specialist. The emergency department will also refer you to a specialist when appropriate. This referral assures that you have the opportunity for follow-up care with a specialist. All of these measure are taken in an effort to provide you with optimal care, which includes your follow-up. Under all circumstances we always encourage you to contact your private physician who remains a resource for coordinating your care. When calling for follow-up care, please make the office aware that this follow-up is from your recent emergency room visit. If for any reason you are refused follow-up, please contact the [facility] at and asked to speak to the emergency department charge nurse. [facility] [address] [place] [id number] [address] [address] 1. Take medication as prescribed. Your medication has been sent to [facility]. You can alternate ibuprofen and Tylenol as directed for pain and discomfort. 2. Follow-up with primary care provider as discussed. Return to the ED as needed and as discussed. Sepsis Event Note (ED) - Focused Exam Vital Signs: Vital Signs Temp Pulse Resp BP Pulse Ox 01/15/21 12:09 9 F L 86 14 109/61 99 01/15/21 10:41 98 F 81 16 109/75 100 01/15/21 09:55 98.6 F 128 H 20 120/84 100
[2021-01-15 10:51] LABS: BLOOD UREA NITROGEN,BUN 8 mg/dL (7.0-18.0); CARBON DIOXIDE,CO2 22.3 mmol/L (21.0-32.0); CHLORIDE,CL 105 mmol/L (98-107); GLUCOSE RANDOM 165 mg/dL (74-106); LIPASE 82 U/L (73-393); POTASSIUM,K 3.5 mmol/L (3.5-5.1); SODIUM,NA 141 mmol/L (136-145)
[2021-01-15] MEDS ORDERED: Iopamidol 755 MG/ML 500 ML Multipack Bottle IVPUSH STA (12:00)
--- NOTE | 2021-01-15 12:37 | CT ---
Indication: Severe left lower quadrant pain, history of ureterolithiasis, history of diverticulitis, bowel surgery before and after Technique: Volumetric multidetector CT images of the abdomen and pelvis were obtained before and after the administration of intravenous contrast. 100 cc Isovue 370 low osmolar intravenous contrast Comparison: None available. Findings: There is minimal basilar atelectasis versus scar. The liver is normal in attenuation without intrahepatic biliary ductal dilatation. The portal vein is patent. The gallbladder is unremarkable without evidence of radiopaque calculus. There is no significant common biliary ductal dilatation or abrupt cut off. The spleen is normal in enhancement and size. The stomach and duodenum are grossly unremarkable. The pancreas is normal in enhancement without significant atrophy. The adrenal glands are unremarkable. There is a patulous appearing left renal pelvis without evidence of distal obstructive calculus. There is no obvious distal radiopaque calculus identified. There are multiple calcified phleboliths appreciated similar to previous exam. Otherwise, the kidneys demonstrate preserved corticomedullary differentiation. There is a decompressed appearing distal colon with minimal distal colonic diverticulosis. There is prior colectomy and primary reanastomosis at the rectosigmoid junction. There is no obvious pericolonic inflammatory change to suggest inflammatory changes. The appendix is unremarkable. There is no significant mesenteric, retroperitoneal, or pelvic sidewall lymph nodes. The aorta is nonaneurysmal. There is no significant atherosclerotic disease appreciated. The pelvic viscera are stable with demonstration of bilateral flow pN2 clips and small follicles within the ovaries. There is no free fluid or free air. The anterior abdominal wall is intact without significant hernias. The lumbar vertebral body heights are grossly maintained without evidence of acute osseous abnormality. Impression: Somewhat patulous appearing left renal pelvis which may represent recent passage of a renal calculus versus extrarenal pelvis. No obvious obstructive distal calculus or hydronephrosis is seen. Somewhat decompressed appearing distal colon with minimal residual colonic diverticulosis status post surgical resection and primary anastomosis appreciated of the rectosigmoid junction. There is no overt pericolonic inflammation to suggest diverticulitis; however, low-grade inflammatory changes may be difficult to exclude. Please note that all CT scans at this facility use dose modulation, iterative reconstruction, and/or weight-based dosing when appropriate to reduce radiation dose to as low as reasonably achievable. Dictated by Afshin Campos MD @ 01/15/2021 12:36:24 PM (Electronically Signed)
[2021-01-15 13:19] VITALS: BP 109/70; PULSE 87
== END 2021-01-15 13:21 | disposition home or self-care (01) ==
LOC: MW.ED 09:46
DX: N20.1 Calculus of ureter (principal); K29.70 Gastritis, unspecified, without bleeding
CPT/HCPCS: 36415; 74178; 80053; 81001; 83690; 84703; 85025; 96374; 96375; 99284; J1170; J1885; J2405; J7030; Q9967

== ENCOUNTER 2021-03-15 08:45 | Emergency (ER) | payer BC ==
[2021-03-15] MEDS ORDERED: Lactated Ringers 1,000 ML IV ONE (09:10)
[2021-03-15] MEDS ORDERED: Morphine 4 MG/ML VIAL IVPUSH ONE (09:10)
[2021-03-15 10:13] LABS: BLOOD UREA NITROGEN,BUN 5 mg/dL (7.0-18.0); CHLORIDE,CL 102 mmol/L (98-107); GLUCOSE RANDOM 102 mg/dL (74-106); POTASSIUM,K 3.6 mmol/L (3.5-5.1); SODIUM,NA 139 mmol/L (136-145)
[2021-03-15 12:33] VITALS: BP 111/67; PULSE 81
[2021-03-15] MEDS ORDERED: Iopamidol 755 MG/ML 500 ML Multipack Bottle IVPUSH ONE (15:15)
== END 2021-03-15 12:37 | disposition home or self-care (01) ==
LOC: MW.ED 08:45
DX: G89.18 Other acute postprocedural pain (principal); R10.12 Left upper quadrant pain
CPT/HCPCS: 36415; 74177; 80053; 81003; 81025; 83605; 85025; 85610; 87040; 96374; 99284; J2270; J7120; Q9967

== ENCOUNTER 2021-08-27 11:06 | Day surgery (SDC) | payer BC ==
[~2021-08-27 11:06] MED LIST changes: -Lactated Ringers 1,000 ML IV SCH; -Midazolam 1 MG/ML 2 ML SDV ONE; -Ondansetron 4 MG/2 ML SDV ONE; -Propofol 200 MG/20 ML SDV ONE; -Sodium Chloride 0.9% 10 ML SDV IV PRN; +Sodium Chloride 0.9% 20 ML SDV IV PRN; -fentaNYL 100 MCG/2 ML SDV ONE
[2021-08-27] MEDS ORDERED: propofoL 100 ML ONE (11:39)
[2021-08-27] MEDS ORDERED: Ondansetron 4 MG/2 ML SDV ONE (11:40)
[2021-08-27] MEDS: Lactated Ringers 1,000 ML IV SCH (12:03)
[2021-08-27 14:45] VITALS: BP 112/66; PULSE 66
== END 2021-08-27 14:15 | disposition home or self-care (01) ==
LOC: MW.SDS 11:06
PROVIDERS: ATTEND Surgery
DX: D12.3 Benign neoplasm of transverse colon (principal); Z43.1 Encounter for attention to gastrostomy; K52.9 Noninfective gastroenteritis and colitis, unspecified; K57.30 Diverticulosis of large intestine without perforation or abscess without bleeding; Z87.19 Personal history of other diseases of the digestive system; F41.9 Anxiety disorder, unspecified; Z79.899 Other long term (current) drug therapy; Z98.890 Other specified postprocedural states
CPT/HCPCS: 00811; 81025; J2405; J2704; J7120

== ENCOUNTER 2022-07-25 12:37 | Emergency (ER) | payer BC ==
[2022-07-25] MEDS ORDERED: Sodium Chloride 0.9% 2.5 ML Syringe FLUSH PRN (12:55)
[2022-07-25] MEDS ORDERED: Sodium Chloride 0.9% 10 ML Syringe FLUSH PRN (12:55)
[2022-07-25] MEDS ORDERED: Sodium Chloride 0.9% 1,000 ML IV ONE (12:55)
[2022-07-25 13:18] LABS: APPEARANCE,URINE CLEAR; BILIRUBIN,URINE NEGATIVE (NEGATIVE); COLOR,URINE YELLOW; GLUCOSE,URINE NEGATIVE (NEGATIVE); KETONES,URINE TRACE mg/dL (NEGATIVE); LEUKOCYTE ESTERASE,URINE TRACE (NEGATIVE); NITRITE,URINE NEGATIVE (NEGATIVE); OCCULT BLOOD,URINE NEGATIVE (NEGATIVE); PROTEIN,URINE NEGATIVE (NEGATIVE); UROBILINOGEN,URINE 0.2 EU/dL (<2.0)
[2022-07-25 13:22] LABS: BASOPHILS PERCENT AUTO 0.3 % (0.0-1.5); EOSINOPHILS ABSOLUTE AUTO 0.1 K/uL (0.0-0.7); EOSINOPHILS PERCENT AUTO 0.6 % (0.0-7.0); HEMATOCRIT 38.5 % (36.0-46.0); HEMOGLOBIN 13.1 g/dL (12.0-16.0); LYMPHOCYTES ABSOLUTE AUTO 1.4 K/uL (0.6-2.4); LYMPHOCYTES PERCENT AUTO 18.2 % (16.0-40.0); MEAN CORPUSCULAR HEMOGLOBIN 30.3 pg (27.0-32.0); MEAN CORPUSCULAR VOLUME 89.1 fL (80.0-98.0); MONOCYTES ABSOLUTE AUTO 0.6 K/uL (0.0-0.8); MONOCYTES PERCENT AUTO 8.1 % (0.0-15.0); NEUTROPHILS ABSOLUTE AUTO 5.6 K/uL (1.4-5.7); NEUTROPHILS PERCENT AUTO 72.8 % (48.0-80.0); NRBC ABSOLUTE 0 K/uL; PLATELET COUNT,PLT 282 K/uL (150-400); RED BLOOD CELL COUNT 4.32 M/uL (4.30-5.90); WHITE BLOOD CELL COUNT,WBC 7.74 K/uL (4.0-11.0)
[2022-07-25 13:29] LABS: BACTERIA,URINE FEW (NEGATIVE); EPITHELIAL CELLS,URINE OCCASIONAL (NONE-FEW); MUCUS,URINE LIGHT (NONE-MOD); RBC,URINE 0-2 (0-2/HPF)
[2022-07-25 13:30] LABS: A/G RATIO 1.2 (0.9-1.6); ALANINE AMINOTRANSFERASE,ALT 18 IU/L (14-63); ALBUMIN 4.1 g/dL (3.4-5.0); ALKALINE PHOSPHATASE 74 U/L (46-116); ASPARTATE AMNIOTRANSFERASE,AST 11 IU/L (15-37); BILIRUBIN TOTAL 0.6 mg/dL (0.2-1.0); BLOOD UREA NITROGEN,BUN 8 mg/dL (7.0-18.0); CALCIUM 8.7 mg/dL (8.5-10.1); CARBON DIOXIDE,CO2 23.1 mmol/L (21.0-32.0); CHLORIDE,CL 102 mmol/L (98-107); CREATININE 0.8 mg/dL (0.6-1.0); EST CRCL DRUG DOSING (CG) 83.64 mL/min; ESTIMATED GFR 98 mL/min (>60); GLUCOSE RANDOM 110 mg/dL (74-106); LIPASE 103 U/L (73-393); POTASSIUM,K 3.7 mmol/L (3.5-5.1); PROTEIN TOTAL,TP 7.4 g/dL (6.4-8.2); SODIUM,NA 138 mmol/L (136-145)
[2022-07-25] MEDS ORDERED: Ketorolac 30 MG/ML SDV IVPUSH ONE (13:41)
[2022-07-25] MEDS ORDERED: HYDROmorphone 1 MG/ML Syringe IVPUSH ONE ×2 (13:41→15:44)
[2022-07-25] MEDS ORDERED: Ondansetron 4 MG/2 ML SDV IVPUSH ONE (13:41)
[2022-07-25] MEDS ORDERED: Iopamidol 755 MG/ML 500 ML Multipack Bottle IVPUSH STA (14:33)
[2022-07-25 17:39] VITALS: BP 110/65; PULSE 76
== END 2022-07-25 17:37 | disposition home or self-care (01) ==
LOC: MW.ED 12:37
DX: N39.0 Urinary tract infection, site not specified (principal); I10 Essential (primary) hypertension; K21.9 Gastro-esophageal reflux disease without esophagitis; Z79.899 Other long term (current) drug therapy
CPT/HCPCS: 36415; 74177; 80053; 81001; 83690; 84484; 85025; 87086; 96361; 96374; 96375; 96376; 99284; J1170; J1885; J2405; J3490; J7030; Q9967

== ENCOUNTER 2024-02-01 10:59 | Emergency (ER) | payer BC ==
[2024-02-01 12:54] VITALS: BP 103/70; PULSE 99
== END 2024-02-01 12:52 | disposition home or self-care (01) ==
LOC: MW.ED 10:59
DX: S60.222A Contusion of left hand, initial encounter (principal); I10 Essential (primary) hypertension; Z79.899 Other long term (current) drug therapy; W23.1XXA Caught, crushed, jammed, or pinched between stationary objects, initial encounter
CPT/HCPCS: 73130-26-LT; 73130-LT; 99283

== ENCOUNTER 2024-04-22 10:24 | Emergency (ER) | payer BC ==
[2024-04-22 13:49] LABS: BASOPHILS ABSOLUTE AUTO 0.04 K/uL (0.00-0.20); BASOPHILS PERCENT AUTO 0.4 % (0.0-1.0); EOSINOPHILS ABSOLUTE AUTO 0.03 K/uL (0.00-0.45); EOSINOPHILS PERCENT AUTO 0.3 % (0.0-6.0); HEMATOCRIT 37.9 % (37.0-47.0); HEMOGLOBIN 12.7 g/dL (12.0-16.0); IMMATURE GRAN ABSOLUTE AUTO 0.03 K/uL (0.00-0.05); IMMATURE GRAN PERCENT AUTO 0.3 % (0.0-0.4); LYMPHOCYTES ABSOLUTE AUTO 1.59 K/uL (1.00-4.80); LYMPHOCYTES PERCENT AUTO 17.7 % (24.0-44.0); MEAN CORPUSCULAR HGB CONC 33.5 g/dL (32.0-36.0); MEAN CORPUSCULAR VOLUME 86.5 fL (83.0-99.0); MEAN PLATELET VOLUME 8.3 fL (9.4-12.3); MONOCYTES ABSOLUTE AUTO 0.81 K/uL (0.00-0.80); NEUTROPHILS PERCENT AUTO 72.3 % (41.0-71.0); PLATELET COUNT,PLT 310 K/uL (150-400); RED BLOOD CELL COUNT 4.38 M/uL (4.10-5.30)
[2024-04-22 14:10] LABS: A/G RATIO 0.8 (0.9-1.6); ALBUMIN 3.4 g/dL (3.4-5.0); BILIRUBIN TOTAL 0.4 mg/dL (0.2-1.0); CALCIUM 8.7 mg/dL (8.5-10.1); CARBON DIOXIDE,CO2 25.6 mmol/L (21.0-32.0); CREATININE 0.8 mg/dL (0.6-1.0); EST CRCL DRUG DOSING (CG) 77.22 mL/min; POTASSIUM,K 4.2 mmol/L (3.5-5.1); PROTEIN TOTAL,TP 7.7 g/dL (6.4-8.2)
[2024-04-22] MEDS: Sodium Chloride 0.9% 1,000 ML IV STA (15:48)
[2024-04-22] MEDS: Acetaminophen 500 MG Tab PO ONE (15:50)
[2024-04-22 16:13] LABS: APPEARANCE,URINE SLT CLOUDY; COLOR,URINE YELLOW; GLUCOSE,URINE NEGATIVE (NEGATIVE); KETONES,URINE NEGATIVE (NEGATIVE); LEUKOCYTE ESTERASE,URINE NEGATIVE (NEGATIVE); NITRITE,URINE NEGATIVE (NEGATIVE); OCCULT BLOOD,URINE TRACE-LYSED (NEGATIVE); PROTEIN,URINE TRACE mg/dL (NEGATIVE)
[2024-04-22 16:20] LABS: BILIRUBIN,URINE SMALL (NEGATIVE)
[2024-04-22 16:27] LABS: BACTERIA,URINE FEW (NEGATIVE); EPITHELIAL CELLS,URINE FEW (NONE-FEW); MUCUS,URINE HEAVY (NONE-MOD); WBC,URINE 0-3 (0-5/HPF)
[2024-04-22] MEDS: Iopamidol 755 MG/ML 500 ML Multipack Bottle IVPUSH STA (16:30)
[2024-04-22] MEDS: Ketorolac 30 MG/ML SDV IVPUSH ONE (17:48)
[2024-04-22] MEDS: cefTRIAXone 500 MG in Lidocaine 1% 1 ML IM ONE (17:49)
[2024-04-22] MEDS: Doxycycline 100 MG Cap PO ONE (17:51)
[2024-04-22 17:52] VITALS: BP 118/68; PULSE 84
== END 2024-04-22 18:39 | disposition home or self-care (01) ==
LOC: MW.ED 10:24
DX: K57.30 Diverticulosis of large intestine without perforation or abscess without bleeding (principal); N83.202 Unspecified ovarian cyst, left side; K62.89 Other specified diseases of anus and rectum; I10 Essential (primary) hypertension; Z79.899 Other long term (current) drug therapy; Z75.8 Other problems related to medical facilities and other health care
CPT/HCPCS: 36415; 74177; 80053; 81001; 81025; 85025; 87428; 96361; 96372; 96374; 99284; A9270; J0696; J1885; J2003; J7030; Q9967; 99283

== ENCOUNTER 2024-05-11 10:37 | Emergency (ER) | payer BC ==
[2024-05-11] MEDS ORDERED: Sodium Chloride 0.9% 10 ML Syringe FLUSH PRN (10:47)
[2024-05-11] MEDS ORDERED: Sodium Chloride 0.9% 2.5 ML Syringe FLUSH PRN (10:47)
[2024-05-11 11:24] LABS: BASOPHILS ABSOLUTE AUTO 0.01 K/uL (0.00-0.20); BASOPHILS PERCENT AUTO 0.1 % (0.0-1.0); EOSINOPHILS ABSOLUTE AUTO 0.02 K/uL (0.00-0.45); EOSINOPHILS PERCENT AUTO 0.2 % (0.0-6.0); HEMATOCRIT 38.2 % (37.0-47.0); HEMOGLOBIN 12.8 g/dL (12.0-16.0); IMMATURE GRAN ABSOLUTE AUTO 0.03 K/uL (0.00-0.05); IMMATURE GRAN PERCENT AUTO 0.3 % (0.0-0.4); LYMPHOCYTES ABSOLUTE AUTO 1.48 K/uL (1.00-4.80); LYMPHOCYTES PERCENT AUTO 16.3 % (24.0-44.0); MEAN CORPUSCULAR HEMOGLOBIN 29.2 pg (28.0-32.0); MEAN CORPUSCULAR HGB CONC 33.5 g/dL (32.0-36.0); MEAN PLATELET VOLUME 8.5 fL (9.4-12.3); MONOCYTES ABSOLUTE AUTO 0.71 K/uL (0.00-0.80); MONOCYTES PERCENT AUTO 7.8 % (0.0-8.0); NEUTROPHILS ABSOLUTE AUTO 6.81 K/uL (1.80-7.70); NEUTROPHILS PERCENT AUTO 75.3 % (41.0-71.0); PLATELET COUNT,PLT 270 K/uL (150-400); RED BLOOD CELL COUNT 4.39 M/uL (4.10-5.30); WHITE BLOOD CELL COUNT,WBC 9.06 K/uL (3.9-11.3)
[2024-05-11] MEDS: Sodium Chloride 0.9% 1,000 ML IV ONE (11:27)
[2024-05-11] MEDS: Morphine 2 MG/ML SYRINGE IVPUSH ONE (11:28)
[2024-05-11] MEDS: Ondansetron 4 MG/2 ML SDV IVPUSH ONE (11:28)
[2024-05-11 11:50] LABS: A/G RATIO 0.9 (0.9-1.6); ALANINE AMINOTRANSFERASE,ALT 15 IU/L (14-63); ALBUMIN 3.4 g/dL (3.4-5.0); ALKALINE PHOSPHATASE 148 U/L (46-116); ASPARTATE AMNIOTRANSFERASE,AST 12 IU/L (15-37); BILIRUBIN TOTAL 0.5 mg/dL (0.2-1.0); BLOOD UREA NITROGEN,BUN 6 mg/dL (7.0-18.0); CALCIUM 9.2 mg/dL (8.5-10.1); CARBON DIOXIDE,CO2 26.2 mmol/L (21.0-32.0); CHLORIDE,CL 102 mmol/L (98-107); CREATININE 0.9 mg/dL (0.6-1.0); GLUCOSE RANDOM 126 mg/dL (74-106); LIPASE 28 U/L (16-77); POTASSIUM,K 3.8 mmol/L (3.5-5.1); PROTEIN TOTAL,TP 7.4 g/dL (6.4-8.2); SODIUM,NA 138 mmol/L (136-145)
[2024-05-11] MEDS: Iopamidol 755 MG/ML 500 ML Multipack Bottle IVPUSH ONE (11:56)
[2024-05-11 11:57] LABS: ESTIMATED GFR 84 mL/min (>60)
[2024-05-11 12:25] LABS: APPEARANCE,URINE CLEAR; BILIRUBIN,URINE NEGATIVE (NEGATIVE); COLOR,URINE YELLOW; GLUCOSE,URINE NEGATIVE (NEGATIVE); KETONES,URINE NEGATIVE (NEGATIVE); LEUKOCYTE ESTERASE,URINE NEGATIVE (NEGATIVE); NITRITE,URINE NEGATIVE (NEGATIVE); OCCULT BLOOD,URINE NEGATIVE (NEGATIVE); PH,URINE 5.5 (5.0-8.0); PROTEIN,URINE NEGATIVE (NEGATIVE); UROBILINOGEN,URINE 0.2 EU/dL (<2.0)
[2024-05-11] MEDS: metroNIDAZOLE 250 MG Tab PO ONE (13:40)
[2024-05-11] MEDS: Ciprofloxacin 500 MG Tab PO ONE (13:40)
[2024-05-11 13:41] VITALS: BP 102/67; PULSE 79
== END 2024-05-11 13:44 | disposition home or self-care (01) ==
LOC: MW.ED 10:37
DX: K62.89 Other specified diseases of anus and rectum (principal); R10.9 Unspecified abdominal pain; Z75.8 Other problems related to medical facilities and other health care; Z79.82 Long term (current) use of aspirin; Z79.899 Other long term (current) drug therapy
CPT/HCPCS: 36415; 74177; 80053; 81003; 83690; 85025; 96361; 96374; 96375; 99284; A9270; J2270; J2405; J7030; Q9967

== ENCOUNTER 2024-05-18 17:08 | Emergency (ER) | payer BC ==
[2024-05-18] MEDS: Sodium Chloride 0.9% 1,000 ML IV ONE (17:35)
[2024-05-18 17:47] LABS: BASOPHILS ABSOLUTE AUTO 0.03 K/uL (0.00-0.20); BASOPHILS PERCENT AUTO 0.4 % (0.0-1.0); EOSINOPHILS ABSOLUTE AUTO 0.03 K/uL (0.00-0.45); EOSINOPHILS PERCENT AUTO 0.4 % (0.0-6.0); HEMATOCRIT 36.5 % (37.0-47.0); HEMOGLOBIN 12.2 g/dL (12.0-16.0); IMMATURE GRAN ABSOLUTE AUTO 0.01 K/uL (0.00-0.05); IMMATURE GRAN PERCENT AUTO 0.1 % (0.0-0.4); LYMPHOCYTES ABSOLUTE AUTO 1.56 K/uL (1.00-4.80); LYMPHOCYTES PERCENT AUTO 22.7 % (24.0-44.0); MEAN CORPUSCULAR HEMOGLOBIN 29.2 pg (28.0-32.0); MEAN CORPUSCULAR HGB CONC 33.4 g/dL (32.0-36.0); MEAN CORPUSCULAR VOLUME 87.3 fL (83.0-99.0); MEAN PLATELET VOLUME 8.3 fL (9.4-12.3); MONOCYTES ABSOLUTE AUTO 0.89 K/uL (0.00-0.80); NEUTROPHILS ABSOLUTE AUTO 4.34 K/uL (1.80-7.70); NEUTROPHILS PERCENT AUTO 63.4 % (41.0-71.0); PLATELET COUNT,PLT 292 K/uL (150-400); RED BLOOD CELL COUNT 4.18 M/uL (4.10-5.30); WHITE BLOOD CELL COUNT,WBC 6.86 K/uL (3.9-11.3)
[2024-05-18 18:13] LABS: A/G RATIO 0.9 (0.9-1.6); ALBUMIN 3.6 g/dL (3.4-5.0); BILIRUBIN TOTAL 0.3 mg/dL (0.2-1.0); CALCIUM 9.2 mg/dL (8.5-10.1); CARBON DIOXIDE,CO2 27.3 mmol/L (21.0-32.0); CREATININE 0.9 mg/dL (0.6-1.0); EST CRCL DRUG DOSING (CG) 71.61 mL/min; POTASSIUM,K 3.4 mmol/L (3.5-5.1); PROTEIN TOTAL,TP 7.6 g/dL (6.4-8.2)
[2024-05-18 18:18] LABS: LACTIC ACID 0.6 mmol/L (0.4-2.0)
[2024-05-18] MEDS: droPERidol 2.5 MG/ML SDV IVPUSH ONE (19:56)
[2024-05-18] MEDS: Iopamidol 755 MG/ML 500 ML Multipack Bottle IVPUSH ONE (21:01)
[2024-05-18 21:31] VITALS: BP 154/74
[2024-05-18 21:33] LABS: APPEARANCE,URINE CLEAR; BILIRUBIN,URINE NEGATIVE (NEGATIVE); COLOR,URINE YELLOW; GLUCOSE,URINE NEGATIVE (NEGATIVE); KETONES,URINE NEGATIVE (NEGATIVE); LEUKOCYTE ESTERASE,URINE SMALL (NEGATIVE); NITRITE,URINE NEGATIVE (NEGATIVE); OCCULT BLOOD,URINE NEGATIVE (NEGATIVE); PROTEIN,URINE NEGATIVE (NEGATIVE); UROBILINOGEN,URINE 0.2 EU/dL (<2.0)
[2024-05-18 21:38] LABS: BACTERIA,URINE FEW (NEGATIVE); EPITHELIAL CELLS,URINE RARE (NONE-FEW); RBC,URINE 0-1 (0-2/HPF)
[2024-05-18 21:39] LABS: MUCUS,URINE MODERATE (NONE-MOD)
[2024-05-19 01:58] VITALS: PULSE 79
== END 2024-05-19 01:00 | disposition home or self-care (01) ==
LOC: MW.ED 17:08
DX: K52.9 Noninfective gastroenteritis and colitis, unspecified (principal); I10 Essential (primary) hypertension; Z75.8 Other problems related to medical facilities and other health care; Z79.899 Other long term (current) drug therapy; Z90.710 Acquired absence of both cervix and uterus
CPT/HCPCS: 36415; 71046; 71046-26; 71260; 71260-26; 74177; 74177-26; 80053; 81001; 83605; 83690; 84703; 85025; 87040; 87086; 87428-QW; 93005; 96361; 96374; 99284-25; J1790; J7030; Q9967

== ENCOUNTER 2024-06-23 12:42 | Day surgery (SDC) | payer BC ==
[~2024-06-23 12:42] MED LIST changes: +Magnesium Sulfate (4.06 MEQ/ML) 5 GM/10 ML SDV ONE; +Ondansetron 4 MG/2 ML SDV ONE; +propofoL 500 MG/50 ML 50 ML ONE
[2024-06-23] MEDS: Lactated Ringers 1,000 ML IV SCH (13:25)
[2024-06-23 15:06] VITALS: BP 99/66; PULSE 67
== END 2024-06-23 15:10 | disposition home or self-care (01) ==
LOC: MW.SDS 12:42
PROVIDERS: ATTEND Surgery
DX: N82.3 Fistula of vagina to large intestine (principal); K44.9 Diaphragmatic hernia without obstruction or gangrene; K21.9 Gastro-esophageal reflux disease without esophagitis; Z79.899 Other long term (current) drug therapy
CPT/HCPCS: 43239; 45380; 81025; J2405; J2704; J3475; J7120; 00813

== ENCOUNTER 2024-12-05 09:44 | Emergency (ER) | payer BC ==
[2024-12-05 10:44] VITALS: BP 104/75; PULSE 80
== END 2024-12-05 10:45 | disposition home or self-care (01) ==
LOC: MW.ED 09:44
DX: B02.9 Zoster without complications (principal); K21.9 Gastro-esophageal reflux disease without esophagitis; Z75.3 Unavailability and inaccessibility of health-care facilities; Z79.899 Other long term (current) drug therapy
CPT/HCPCS: 99282; 99283